=== PATIENT | male | born 1950 | race Caucasian/White ===

== ENCOUNTER 2017-12-10 07:05 | Inpatient (IN) ==
[2017-12-06 16:05] LABS: Appearance,Urine HAZY; Bilirubin,Urine NEG (NEG); Color,Urine YELLOW; Glucose,Urine (UA) NEGATIVE (NEG); Leukocyte Esterase,Urine NEG /uL (NEG); Nitrate,Urine NEG (NEG); Protein,Urine NEG (NEG); Specific Gravity,Urine 1.023 (1.000-1.035); Urine Blood NEG mg/dL (<0.03)
[2017-12-06 18:45] LABS: Basophils # (Auto) 0 K/mcL (0.0-0.3); Basophils % (Auto) 0.5 % (0.0-2.0); Eosinophils # (Auto) 0.6 K/mcL (0.0-0.7); Granulocytes % (Auto) 58.2 % (38.0-78.0); Lymphocytes # (Auto) 2.6 K/mcL (1.5-4.8); Lymphocytes % (Auto) 27.4 % (15.5-49.0); Mean Corpuscular HGB Conc 32.5 g/dL (31.0-36.0); Mean Corpuscular Hemoglobin 29.9 pg (26.0-34.0); Monocytes # (Auto) 0.8 K/mcL (0.1-0.9); Monocytes % (Auto) 7.9 % (1.0-12.0); Platelet Count 261 K/mcL (140-440); RBC 4.75 M/mcL (4.50-5.90); Red Cell Distribution Width 15.1 % (11.5-14.5)
[2017-12-06 18:48] LABS: Blood Urea Nitrogen 13 mg/dl (8-23)
[~2017-12-10 07:05] MED LIST: ACETAMINOPHEN 500 MG TABLET PO SCH; CELECOXIB 200 MG CAPSULE PO SCH; KETOROLAC 30 MG, ROPIVACAINE HCL/PF 49.5 ML, EPINEPHrine 0.5 MG, 0.9 % SODIUM CHLORIDE ... IJ SCH; PREGABALIN 75 MG CAPSULE PO SCH; ceFAZolin 1 GM VIAL IV SCH; oxyCODONE 10 MG TAB.ER.12H PO SCH
[2017-12-10] MEDS ORDERED: IPRATROPIUM/ALBUTEROL 3 ML AMPUL.NEB NEB ONE (11:44)
[2017-12-10] MEDS ORDERED: MIDAZOLAM 2 MG/2 ML VIAL IV ONE (12:30)
[2017-12-10] MEDS ORDERED: ONDANSETRON 4 MG/2 ML VIAL IV ONE (12:30)
[2017-12-10] MEDS ORDERED: DEXAMETHASONE 10 MG/ML VIAL IV ONE (12:30)
[2017-12-10] MEDS ORDERED: BUPIVACAINE PF 0.5% 30 ML VIAL IJ ONE (12:30)
[2017-12-10] MEDS ORDERED: TRANEXAMIC ACID 1,000 MG/10 ML VIAL IV ONE ×2 (12:30→14:25)
[2017-12-10] MEDS ORDERED: LIDOCAINE HCL/PF 100 MG/5 ML SYRINGE IV ONE (12:30)
[2017-12-10] MEDS ORDERED: PROPOFOL 200 MG/20 ML VIAL IV ONE (12:30)
[2017-12-10] MEDS ORDERED: GENTAMICIN SULFATE 800 MG/20 ML VIAL IR ONE (13:21)
[2017-12-10] MEDS ORDERED: diphenhydrAMINE 50 MG/ML VIAL IV PRN (14:07)
[2017-12-10] MEDS ORDERED: NALOXONE HCL 0.4 MG/ML VIAL IV PRN (14:07)
[2017-12-10] MEDS ORDERED: FLUMAZENIL 0.1 MG/ML ML IV PRN (14:07)
[2017-12-10] MEDS ORDERED: BENZOCAINE/MENTHOL 1 LOZENGE PO PRN ×2 (14:07→14:25)
[2017-12-10] MEDS ORDERED: fentaNYL 100 MCG/2 ML VIAL IV PRN (14:07)
[2017-12-10] MEDS ORDERED: ACETAMINOPHEN 1,000 MG/100 ML BOTTLE IV ONE (14:07)
[2017-12-10] MEDS ORDERED: ONDANSETRON 4 MG/2 ML VIAL IV PRN ×2 (14:07→14:25)
[2017-12-10] MEDS ORDERED: MEPERIDINE 25 MG/ML SYRINGE IV PRN (14:07)
[2017-12-10] MEDS ORDERED: IPRATROPIUM/ALBUTEROL 3 ML AMPUL.NEB NEB PRN (14:07)
[2017-12-10] MEDS ORDERED: PROMETHAZINE 25 MG/ML VIAL IV PRN (14:07)
[2017-12-10] MEDS ORDERED: LACTATED RINGERS 250 ML IV PRN (14:07)
[2017-12-10] MEDS ORDERED: LACTATED RINGERS 1,000 ML IV SCH (14:15)
--- NOTE | 2017-12-10 14:24 | Brief Operative Note ---
Date of procedure: 12/10/17 Pre-op diagnosis: right knee avn lateral compartment Post-op diagnosis: same Procedure: right tka with narayan robot Grafts/Implants: Yes Anesthesia: GETA Complications Description: 12/10/17 14:24 none Surgeon: Miguel Scott Brick Grader: David Hernandez Estimated blood loss (cc): 50 Tourniquet Time (Minutes): 75 Specimens Removed/Pathology: none sent Condition: stable Disposition: PACU
[2017-12-10] MEDS ORDERED: ACETAMINOPHEN 325 MG TABLET PO PRN (14:25)
[2017-12-10] MEDS ORDERED: FLEETS ADULT ENEMA PR PRN (14:25)
[2017-12-10] MEDS ORDERED: TEMAZEPAM 15 MG CAPSULE PO PRN (14:25)
[2017-12-10] MEDS ORDERED: HYDROmorphone 2 MG/ML SYRINGE IV PRN (14:25)
[2017-12-10] MEDS ORDERED: POLYETHYLENE GLYCOL 3350 17 GM PACKET PO PRN (14:25)
[2017-12-10] MEDS ORDERED: BISACODYL 10 MG SUPP.RECT PR PRN (14:25)
[2017-12-10] MEDS ORDERED: MAGNESIUM HYDROXIDE 30 ML ORAL.SUSP PO PRN (14:25)
[2017-12-10] MEDS ORDERED: CALCIUM CARBONATE 500 MG TAB.CHEW CHEWED PRN (14:29)
[2017-12-10] MEDS ORDERED: BENZONATATE 100 MG CAPSULE PO PRN (14:29)
[2017-12-10] MEDS ORDERED: CYCLOBENZAPRINE 10 MG TABLET PO PRN (14:29)
[2017-12-10] MEDS ORDERED: CLOTRIMAZOLE CRM 1% 1 DOSE TUBE TOPICAL PRN (14:29)
[2017-12-10] MEDS ORDERED: ALBUTEROL SULFATE 1 PUFF INHALER INH PRN (14:29)
[2017-12-10] MEDS ORDERED: LORazepam 1 MG TABLET PO PRN (14:35)
--- NOTE | 2017-12-10 16:17 | XRay Report ---
CLINICAL INFORMATION: Post-Op Total Knee COMPARISON: None. FINDINGS: Total knee prostheses is anatomically aligned. An IM alisia and interlocking screws transfix an old oblique fracture of the mid tibial diaphysis which is unified in anatomic alignment. Old oblique fracture distal fibula is also unified in anatomic alignment. Gas and soft tissue is seen in the surgical site - as expected. IMPRESSION: Negative Interpreted and Authenticated by: Andre Cortez 12/10/17
[2017-12-10] MEDS: 0.45 % SODIUM CHLORIDE 1,000 ML IV SCH (16:55)
[2017-12-10] MEDS: KETOROLAC 15 MG/ML VIAL IV SCH (17:54)
[2017-12-10] MEDS: ceFAZolin 1 GM VIAL IV SCH (20:01)
[2017-12-10] MEDS: NICOTINE 21 MG PATCH TOPICAL SCH (20:37)
[2017-12-10] MEDS: DOCUSATE SODIUM 100 MG CAPSULE PO SCH (20:37)
[2017-12-10] MEDS: ASPIRIN 325 MG ENTERIC COATED TABLET PO SCH (20:37)
[2017-12-10] MEDS: Budesonide/Formoterol Fumarate [Symbicort] 160-4.5 mcg Inhaler INH SCH (20:38)
[2017-12-10] MEDS: SIMVASTATIN 20 MG TABLET PO SCH (20:38)
[2017-12-10] MEDS: PRAZOSIN 1 MG CAPSULE PO SCH (20:38)
[2017-12-10] MEDS: SENNOSIDES 1 TABLET PO SCH (20:38)
[2017-12-10] MEDS: amLODIPine 5 MG TABLET PO SCH (20:38)
[2017-12-10] MEDS: CALCIUM (OYSTER SHELL) 500 MG TABLET PO SCH (20:38)
[2017-12-10] MEDS: 0.9 % SODIUM CHLORIDE 10 ML SYRINGE IV SCH (20:39)
[2017-12-10] MEDS: OLANZapine 5 MG TABLET PO SCH (20:39)
[2017-12-10] MEDS: BENZTROPINE 1 MG TABLET PO SCH (20:47)
[2017-12-10] MEDS ORDERED: DOCUSATE SODIUM 100 MG CAPSULE PO SCH (21:00)
[2017-12-11] MEDS: 0.45 % SODIUM CHLORIDE 1,000 ML IV SCH ×2 (00:24→13:58)
[2017-12-11] MEDS: KETOROLAC 15 MG/ML VIAL IV SCH ×4 (00:24→17:00)
[2017-12-11] MEDS: ceFAZolin 1 GM VIAL IV SCH (03:36)
[2017-12-11] MEDS: 0.9 % SODIUM CHLORIDE 10 ML SYRINGE IV SCH ×3 (05:57→20:15)
--- NOTE | 2017-12-11 07:43 | Orthopedic Progress Note ---
Subjective Patient information: Note initiated : 12/11/17 at 7:42 am Service Date, if different from initiated Date: [] Patient: Isrrael Carrasco 67 y/o M admitted on 12/10/17 for Right Total Knee Arthroplasty with Srinivas with Poss . Chief Complaint: [Pt is stable this morning on post operative day 1 without any significant concerns or complaints. Patients vital signs have remained stable. Patients dressing is dry and is grossly instact from a neurovascular and motor standpoint. Patients 10 point ROS is otherwise negative. ] Objective Vital signs: Vital Signs Temp Pulse Resp BP Pulse Ox 12/11/17 07:23 98.7 F 12/11/17 06:54 98.7 F 12/11/17 06:47 98.7 F 18 120/73 92 12/11/17 04:00 97.9 F 105 H 18 104/66 94 12/11/17 00:00 98.1 F 112 H 16 98/59 94 12/10/17 20:21 94 12/10/17 20:20 94 12/10/17 18:37 97.5 F 105 H 18 115/78 96 12/10/17 18:25 96 12/10/17 17:30 123/80 96 12/10/17 17:00 92 H 130/85 96 12/10/17 16:50 97.9 F 91 H 17 179/82 95 12/10/17 16:30 91 H 129/83 95 12/10/17 16:15 90 121/48 93 12/10/17 16:00 93 H 109/59 95 12/10/17 15:45 97.9 F 93 H 17 116/78 96 12/10/17 15:30 98.9 F 93 H 16 120/87 96 12/10/17 15:15 98.9 F 94 H 16 141/71 97 12/10/17 15:00 98.9 F 95 H 16 124/58 96 12/10/17 14:55 98.9 F 97 H 16 130/80 99 12/10/17 14:50 98.9 F 92 H 16 128/56 100 12/10/17 14:45 98.9 F 109 H 23 H 125/56 97 Intake and Output 12/10/17 12/11/17 12/11/17 21:59 05:59 13:59 Intake Total 1999 250 / 250 Output Total 1075 / 1075 Balance 1999 -825 / -825 Intake: IV 100 / 100 Oral 250 / 250 IV - Manual Only 1900 / 1900 Output: Void Amount 1075 / 1075 Other: Meal Dinner Percent of Meal Consumed 100% # Voids 1 Weight 266 lb 8 oz Intake & Output: Intake & Output 12/10/17 12/11/17 12/11/17 21:59 05:59 13:59 Intake Total 1999 250 / 250 Output Total 1075 / 1075 Balance 1999825 / -825 Weight 266 lb 8 oz Intake: IV 100 / 100 Oral 250 / 250 IV - Manual Only 1900 / 1900 Output: Void Amount 1075 / 1075 Other: Meal Dinner Percent of Meal Consumed 100% # Voids 1 Incision: Yes healing Incision clean and dry: Yes Dressing: Yes clean, Yes dry Weight bearing status: as tolerated Neurological exam IM: Yes motor sensory intact, Yes neurovascular intact Extremities exam IM: Yes Foot pink and warm, Yes neurovascular intact - Labs CBC & BMP: 12/11/17 04:36 12/06/17 14:49 Labs: Orthopedic Labs 12/06/17 14:50 PT 13.0 INR 1.0 APTT 30 12/11/17 12/06/17 04:36 14:50 Hgb 14.2 Hct 37.8 L 43.7 Assessment and Plan (1) Hx of total knee arthroplasty The patient has been educated regarding dressing care, Physical Therapy recommendations, home exercises, restrictions, and follow up appointments. The patient has had all necessary DME prescribed. The patient has remained stable during their hospital course. The patient was discharge with a stable exam. Leave Dermabond patch intact until followup Status: Acute
--- NOTE | 2017-12-11 07:46 | Discharge Summary ---
Ortho Discharge - TKA - Patient Instructions Diet: Regular Diet Activity: activity as tolerated, weight bearing as tolerated Total Knee Protocol: For Total Knee: Start ROM CASSIE with stationary bike or rocking chair. Work on gaining full extension of knee. Posterior dislocation precautions provided. Hip abductor strengthening and gait training instructions provided. Apply Cryocuff as instructed. Dressing Care: May shower in 2 days Additional Instructions: cpm for home use - Problem Maintenance (1) Hx of total knee arthroplasty Status: Acute - Follow Up Plan Disposition: er [facility] Prognosis: Good Rehab Potential: Good I certify that the patient requires SNF services: No Overall status at discharge: patient is progressing back to baseline - Orders For Discharge Prescriptions: Aspirin [Ecotrin] 325 mg PO BID #60 tab.ec Docusate Sodium [Colace] 100 mg PO BID #60 cap oxyCODONE/APAP [Percocet 5-325 mg] 1 - 2 tab PO Q4HP PRN #75 tab PRN Reason: Pain Level 3-6
[2017-12-11] MEDS: CYANOCOBALAMIN (VITAMIN B-12) 500 MCG TABLET PO SCH (08:55)
[2017-12-11] MEDS: LOSARTAN 50 MG TABLET PO SCH (08:56)
[2017-12-11] MEDS: POTASSIUM CHLORIDE 10 MEQ TABLET PO SCH (08:56)
[2017-12-11] MEDS: MELOXICAM 7.5 MG TABLET PO SCH (08:56)
[2017-12-11] MEDS: DOCUSATE SODIUM 100 MG CAPSULE PO SCH ×2 (08:56→20:15)
[2017-12-11] MEDS: CALCIUM (OYSTER SHELL) 500 MG TABLET PO SCH ×2 (08:56→20:15)
[2017-12-11] MEDS: FUROSEMIDE 20 MG TABLET PO SCH (08:56)
[2017-12-11] MEDS: BENZTROPINE 1 MG TABLET PO SCH ×2 (08:57→20:16)
[2017-12-11] MEDS: ASPIRIN 325 MG ENTERIC COATED TABLET PO SCH ×2 (08:57→20:15)
[2017-12-11] MEDS: TIOTROPIUM BROMIDE 18 MCG INHALANT INH SCH (08:59)
[2017-12-11] MEDS: FLUTICASONE PROPIONATE SPRAY.NAS NS SCH (08:59)
[2017-12-11] MEDS: Budesonide/Formoterol Fumarate [Symbicort] 160-4.5 mcg Inhaler INH SCH ×2 (08:59→20:21)
[2017-12-11] MEDS ORDERED: ASPIRIN 81 MG TAB.CHEW CHEWED SCH (09:00)
[2017-12-11] MEDS ORDERED: PALIPERIDONE PALMITATE 234 MG IM SCH (09:00)
[2017-12-11] MEDS: VITAMIN D3 1,000 UNIT TABLET PO SCH (09:06)
[2017-12-11] MEDS: oxyCODONE/APAP 5/325MG TABLET PO PRN ×2 (11:19→20:14)
[2017-12-11] MEDS: NICOTINE 21 MG PATCH TOPICAL SCH (13:58)
[2017-12-11] MEDS: ALBUTEROL SULFATE 2.5 MG/3 ML NEBULIZER NEB PRN (17:28)
[2017-12-11] MEDS: amLODIPine 5 MG TABLET PO SCH (20:14)
[2017-12-11] MEDS: SENNOSIDES 1 TABLET PO SCH (20:14)
[2017-12-11] MEDS: PRAZOSIN 1 MG CAPSULE PO SCH (20:14)
[2017-12-11] MEDS: SIMVASTATIN 20 MG TABLET PO SCH (20:15)
[2017-12-11] MEDS: OLANZapine 5 MG TABLET PO SCH (20:15)
[2017-12-12] MEDS: KETOROLAC 15 MG/ML VIAL IV SCH ×3 (00:14→12:14)
[2017-12-12] MEDS: 0.9 % SODIUM CHLORIDE 10 ML SYRINGE IV SCH (06:00)
[2017-12-12] MEDS: oxyCODONE/APAP 5/325MG TABLET PO PRN ×2 (06:33→12:14)
[2017-12-12] MEDS: ALBUTEROL SULFATE 2.5 MG/3 ML NEBULIZER NEB PRN ×3 (07:13→14:41)
[2017-12-12] MEDS: TIOTROPIUM BROMIDE 18 MCG INHALANT INH SCH (07:32)
[2017-12-12] MEDS: Budesonide/Formoterol Fumarate [Symbicort] 160-4.5 mcg Inhaler INH SCH (07:32)
[2017-12-12] MEDS: CYANOCOBALAMIN (VITAMIN B-12) 500 MCG TABLET PO SCH (10:40)
[2017-12-12] MEDS: MELOXICAM 7.5 MG TABLET PO SCH (10:40)
[2017-12-12] MEDS: VITAMIN D3 1,000 UNIT TABLET PO SCH (10:40)
[2017-12-12] MEDS: FUROSEMIDE 20 MG TABLET PO SCH (10:40)
[2017-12-12] MEDS: ASPIRIN 325 MG ENTERIC COATED TABLET PO SCH (10:40)
[2017-12-12] MEDS: BENZTROPINE 1 MG TABLET PO SCH (10:40)
[2017-12-12] MEDS: DOCUSATE SODIUM 100 MG CAPSULE PO SCH (10:41)
[2017-12-12] MEDS: LOSARTAN 50 MG TABLET PO SCH (10:41)
[2017-12-12] MEDS: POTASSIUM CHLORIDE 10 MEQ TABLET PO SCH (10:41)
[2017-12-12] MEDS: CALCIUM (OYSTER SHELL) 500 MG TABLET PO SCH (10:41)
[2017-12-12] MEDS: FLUTICASONE PROPIONATE SPRAY.NAS NS SCH (10:42)
[2017-12-12] MEDS: NICOTINE 21 MG PATCH TOPICAL SCH (10:42)
--- NOTE | 2017-12-17 09:31 | Operative Note ---
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 PROCEDURE: Right total knee arthroplasty using the MICHAEL robot. IMPLANTS PLACED: [place] total knee MICHAEL robot implant, size per nurse's note. COMPLICATIONS: None. SURGEON: Miguel Scott MD ALGOLOGY TEACHER: David Hernandez PA-C ANESTHESIA: General LMA anesthesia. COMPLICATIONS: None. TOTAL TOURNIQUET TIME: 75 minutes. DESCRIPTION OF PROCEDURE: The patient was brought to the operating room and put to sleep with general LMA anesthesia. Once asleep, the patient had the right leg sterilely prepped and draped in the usual sterile fashion. This was confirmed with a timeout and Ioban placed over the skin, tourniquet inflated to 250 pounds of pressure and then we made a midline incision. A mid vastus approach was performed and we exposed the joint showing a large defect of the medial femoral condyle on the right knee. This was very deep and a large bony fragment was present. We irrigated, proceeded with total knee arthroplasty, made intramedullary guide alisia and then made a cut using these guide, a distal femoral cut and anterior, posterior chamfer cuts were then made. Once done, we then sized the femur, preserving the PCL, removing osteophytes posteriorly and medially. We then entered the tibia. The tibia was then cut using the MICHAEL robot after registering 30 points on the femur and tibia. We made our tibial cut using the MICHAEL robot preserving the tibial nail. This did not have to be removed. The tibial rotation was set by the robot as well. Once done, we then removed these bony fragments and removed the meniscus, preserving the PCL and removing the old meniscal and a few loose pieces of bone. We irrigated thoroughly and then placed the tibial baseplate with the appropriate external rotation, placed the femoral condyle lateralized according to the robot and then trialed the poly liners. The implants were then trialed and aligned perfectly. In full extension, we prepared the patella. This measured a total thickness of 25 mm. This was cut to 15 mm in total thickness and then we resurfaced this with a 38 mm patellar button. We performed a tracking maneuver to make sure everything aligned perfectly. The knee had full range of motion, full extension by robot. Even though he had developed a slight contracture, we were within 3 degrees of complete normalcy. We irrigated and cemented into place the above-mentioned components removing any excess cement placing the final liner and kept the knee at 45 degrees until all the cement was dry. We closed the mid vastus approach with Stratafix suture #1 x2 sutures. We closed the skin with 2-0 Vicryl and adhesive closure. Tourniquet time 75 minutes. There was no complication. RBH:diandra Job ID: [id number] Doc ID: [id number] Miguel Scott MD
--- NOTE | 2017-12-20 09:18 | Discharge Summary ---
DATE OF ADMISSION: 12/10/2017 DATE OF DISCHARGE: 12/12/2017 ADMITTING DIAGNOSIS: Right knee degenerative osteoarthritis. DISCHARGE DIAGNOSIS: Right knee degenerative osteoarthritis with right robotic total knee arthroplasty. DISCHARGE CONDITION: Stable. CONSULTATIONS: None. PROCEDURE PERFORMED: Right total knee arthroplasty was completed on the date of admission. The procedure went without complications and there was minimal blood loss. Following the procedure the patient was taken to recovery room in stable condition. When deemed stable, was taken to the hospital floor for further observation and recovery. HISTORY OF PRESENT ILLNESS: This pleasant patient has exhausted conservative care measures in the office that has included trials with anti-inflammatories, pain medications, injections and physical therapy. The patient has discussed non-operative and operative options with Dr. Scott at length. Due to the exhausting conservative measures the patient desired to proceed forth with operative care. HOSPITAL COURSE: The patient remained stable throughout the hospital course and exhibited normal neurovascular examinations throughout the stay. The patient worked with physical therapy per standard protocols. The patient had no incidents during the hospital course. The patient also had a stable physical exam upon discharge. DISCHARGE PHYSICAL EXAMINATION: VITAL SIGNS: Stable as above. GENERAL: Patient is awake, alert and oriented x3. HEENT: Head was normocephalic. NECK: Supple, no adenopathy or thyromegaly. CHEST: CTA, no wheezing, rhonchi or rales. HEART: NSR, no gallops, rubs or murmurs. MUSCULOSKELETAL: Lower extremities revealed grossly intact motor exam. NEUROLOGIC: Deep tendon response and light touch, motor, neurosensory exam was stable. SKIN: The incision was intact and the dressing had been changed to the Acticoat dressing. There were no abnormal skin markings, lesions, erythema, rashes or other skin breakdown. DISCHARGE INSTRUCTIONS/MEDICATIONS: The patient received our standard written discharge instruction sheet. These instructions included information regarding weightbearing status, activity level, diet, wound care, physical therapy instructions, bathing restrictions, shower recommendations, follow-up guidelines, driving restrictions and monitoring the wound for signs of infection that could include but not necessarily to fevers above 101.5, sweats, chills, redness, increased pain or drainage. Should any of these occur the patient was educated to contact our office at once. MEDICATIONS: The patient was restarted on normal primary care medications. Patient was also prescribed Tyler 10/325 mg with instructions for 1 to 2 tabs by mouth every 4 to 6 hours as needed for pain, quantity 75 with 2 refills. The patient will be placed on 325 mg aspirin, 1 a day for 30 days post surgery. [facility] will monitor the patient's PT/INR. FOLLOWUP: Patient will follow up at [facility] 2 weeks from surgery for a postop wound check and staple removal. They will be able to certain follow up sooner with any problems or concerns. BAP:reyes Job ID: [id number] Doc ID: [id number] David Hernandez PA-C
== END 2017-12-12 14:55 | DRG 470 ==
LOC: MEDSUR 07:05
PROVIDERS: ADMIT Orthopaedic Surgery; ATTEND Orthopaedic Surgery

== ENCOUNTER 2022-02-01 15:30 | Inpatient (IN) ==
--- NOTE | 2022-02-01 15:51 | Emergency Department Note ---
Lower Extremity Injury HPI <Daniel Barragan PA-C - Last Filed: 02/01/22 18:51> General Chief Complaint: Extremity Injury, Lower Stated Complaint: left hip pain/weakness Time Seen by Provider: 02/01/22 15:39 Source: EMS Mode of arrival: EMS History of Present Illness HPI Narrative: Narrative: 71-year-old male who resides in an assisted living facility in [place] presents the ER to be evaluated for left hip pain. He had hip replacement performed by Dr. Payan on the first. He had a fall on the or and it was found to be a nondisplaced fracture below the post that was nonoperable. He has had difficulty with ambulating and increasing pain since then and he had a repeat fall yesterday. He is now unable to bear weight and his pain is significant. Caregivers report urinary frequency but patient denies. He has a history of COPD and is on 2 L via nasal cannula at baseline, heart failure. He denies increasing shortness of breath, fever, chills, sputum, chest pain, chest pressure, abdominal pain or any other complaints other than hip pain at this time. The staff from the facility state his chest sounds more "rattly" than normal. Related Data Home Medications Medication Instructions Recorded Confirmed albuterol sulfate 90 mcg/actuation 2 puff INH Q4HP PRN 12/06/17 02/01/22 aerosol inhaler (Ventolin HFA) benztropine 1 mg tablet 2 mg PO BID 12/06/17 02/01/22 budesonide-formoterol HFA 160 2 puff INH BID 12/06/17 02/01/22 mcg-4.5 mcg/actuation aerosol inhaler (Symbicort) calcium carbonate 200 mg calcium 1,000 mg CHEWED Q4HP PRN 12/06/17 02/01/22 (500 mg) chewable tablet calcium carbonate 600 mg calcium 600 mg PO BID 12/06/17 02/01/22 (1,500 mg) tablet cholecalciferol (vitamin D3) 25 2,000 unit PO DAILY 12/06/17 02/01/22 mcg (1,000 unit) tablet (Vitamin D3) clotrimazole 1 % topical cream 1 dose TOPICAL BIDP PRN 12/06/17 02/01/22 cyclobenzaprine 10 mg tablet 10 mg PO TIDP PRN 12/06/17 02/01/22 fluticasone propionate 50 1 spray NS DAILY 12/06/17 02/01/22 mcg/actuation nasal spray,suspension furosemide 20 mg tablet 40 mg PO DAILY 12/06/17 02/01/22 losartan 50 mg tablet (Cozaar) 100 mg PO DAILY 12/06/17 02/01/22 olanzapine 5 mg tablet 7.5 mg PO HS 12/06/17 02/01/22 paliperidone palmitate 234 mg/1.5 234 mg IM QMONTH 12/06/17 02/01/22 mL intramuscular syringe (Invega Sustenna) potassium chloride 10 mEq 10 meq PO BIDCC 12/06/17 02/01/22 tablet,extended release prazosin 2 mg capsule 2 mg PO BID 12/06/17 02/01/22 simvastatin 20 mg tablet 20 mg PO HS 12/06/17 02/01/22 tiotropium bromide 18 mcg capsule 18 mcg INH DAILY 12/06/17 02/01/22 with inhalation device (Spiriva with HandiHaler) acetaminophen 325 mg tablet 650 mg PO Q6H PRN 01/10/22 02/01/22 amantadine HCl 100 mg capsule 100 mg PO BID 01/10/22 02/01/22 carvedilol 6.25 mg tablet 6.25 mg PO BIDCC 01/10/22 02/01/22 diclofenac sodium 1 % topical gel 2 g TOPICAL TID 01/10/22 02/01/22 ipratropium 0.5 mg-albuterol 3 mg 3 ml INHALATION Q4H PRN 01/10/22 02/01/22 (2.5 mg base)/3 mL nebulization soln lorazepam 1 mg tablet 1 mg PO BIDP PRN 01/10/22 02/01/22 magnesium citrate 300 ml PO DAILYP PRN 01/10/22 02/01/22 polyethylene glycol 3350 17 gram 17 g PO BID 01/10/22 02/01/22 oral powder packet (Miralax) sennosides 8.6 mg tablet (Senna 8.6 mg PO BID 01/10/22 02/01/22 Lax) Previous Rx's Medication Instructions Recorded aspirin 81 mg tablet,delayed 81 mg PO BID #60 tab 01/17/22 release (Aspirin Low Dose) hydrocodone 10 mg-acetaminophen 1 - 2 tab PO Q4H PRN #60 tab 01/17/22 325 mg tablet Allergies Allergy/AdvReac Type Severity Reaction Status Date / Time Beta-Blockers Allergy Unknown Unknown Verified 01/10/22 13:30 (Beta-Adrenergic Bloc codeine AdvReac Mild Vomiting Verified 01/10/22 13:30 tramadol AdvReac Mild Confusion Verified 01/10/22 13:30 Review of Systems <Daniel Barragan PA-C - Last Filed: 02/01/22 18:51> ROS ROS Narrative: Narrative: All systems ED: reviewed and negative except as stated. PFSH <Daniel Barragan PA-C - Last Filed: 02/01/22 18:51> Narrative Patient History Narrative: Narrative: Medical/Surgical/Family History All Active Problems Hx of total knee arthroplasty (Acute) Closed hip fracture (Acute) Social History Smoking Status: Current some day smoker Exam <Daniel Barragan PA-C - Last Filed: 02/01/22 18:51> Narrative Narrative: Narrative: Gen: No acute distress Eyes: PERRL, no conjunctival injection , and symmetrical lids. Sclerae non icteric HENMT: Normocephalic Atraumatic head, external nose and ears. Moist MM. CVS: +S1/S2, No murmurs or gallops. Radial pulses 2+ and equal bilat. No swelling RESP: Bilateral lateral wheezing auscultated worse on left than right, slight rhonchi bilaterally GI: Obese abdomen, nontender/Nondistended (NTND), No focal tenderness no suprapubic tenderness MSK: Left leg is possibly slightly externally rotated, DP and PT are 2+, cap refill less than 2, pain on the left lateral aspect of the left hip. Skin: Warm, Dry . No rashes or lesions . Cap refill less than 2. Psych: Awake, Alert, & Oriented (AAO) x3. Appropriate mood and affect . Course <Daniel Barragan PA-C - Last Filed: 02/01/22 18:51> Vital Signs Vital signs: Vital Signs Temperature 98.1 F 02/01/22 15:38 Pulse Rate 109 H 03/16/22 15:38 Respiratory Rate 20 02/01/22 15:38 Blood Pressure 146/99 02/01/22 15:38 Pulse Oximetry (%) 99 02/01/22 15:38 Temperature 99.0 F 02/02/22 03:11 Pulse Rate 106 H 02/02/22 03:11 Respiratory Rate 22 02/02/22 03:11 Blood Pressure 118/78 02/02/22 03:11 Pulse Oximetry (%) 93 02/02/22 03:11 [facility] <Daniel Barragan PA-C - Last Filed: 02/01/22 18:51> [facility] Narrative Medical decision making narrative: Narrative: Patient had hip replacement on the first, fall with a fracture that was nondisplaced and nonoperable on approximately the and had another fall yesterday. He has had increasing pain and cannot bear weight. PMS the distal extremity are normal. Patient also has wheezing and rhonchi. He is not complaining of difficulty urinating but the staff caring for him reported urinary frequency and hesitation. He will be evaluated with a cbc, cmp,UA, chest x-ray, bladder scan and hip x-ray. Hip x-ray: Oblique displaced fracture of the left hip, no fracture of the prost hesis Chest x-ray: Cardiomegaly and COPD, no acute exacerbation or process Bladder scan: Post void residual was around 130 mL while lying in bed CBC: Elevated white count of 14 with left shift, anemia. CMP: Unremarkable UA: No evidence of infection Patient could not tolerate imaging and was given 20 mg of ketamine in 100 mL of IV fluid which was running slowly which is controlled his pain. Dr. Howe will be called regarding the fracture. Dr. Howe: Requested to call Dr. Payan who did the prosthesis on the first Dr. Payan: Agreed this patient would need surgery and the patient should be admitted to the hospitalist. Surgery will likely be on Sunday as he needs special equipment. Patient is to have Beasley's traction as needed, can eat until he decides the surgery date and needs to be on bedrest with nonweightbearing. Hospitalist: Dr. Craft graciously agreed to admit the patient and request that he be sent up to the floor for evaluation. Lab Data Result diagrams: 02/02/22 05:16 02/02/22 05:16 Labs: Lab Results 02/01/22 02/01/22 02/01/22 Range/Units 16:10 16:11 16:11 WBC 14.1 H (4.5-11.0) K/mcL RBC 3.97 L (4.63-6.08) M/mcL Hgb 11.6 L (13.7-17.5) g/dL Hct 36.8 L (40.1-51.0) % MCV 92.7 (80.0-100.0) fL MCH 29.2 (26.0-34.0) pg MCHC 31.5 (31.0-36.0) g/dL RDW 14.4 (11.5-14.5) % Plt Count 356 (140-440) K/mcL MPV 9.9 (7.4-10.4) fL Neut % (Auto) 80.6 H (38.0-78.0) % Lymph % (Auto) 9.3 L (15.5-49.0) % [place] % (Auto) 8.5 (1.0-12.0) % Eos % (Auto) 1.1 (0.0-7.0) % Baso % (Auto) 0.5 (0.0-2.0) % Lymph # (Auto) 1.31 L (1.50-4.80) K/mcL [place] # (Auto) 1.19 H (0.10-0.90) K/mcL Eos # (Auto) 0.15 (0.00-0.70) K/mcL Baso # (Auto) 0.07 (0.00-0.30) K/mcL Absolute Neutrophils 11.34 H (1.80-8.00) K/mcL PT (11.9-14.5) sec INR (0.9-1.1) Sodium 137 (133-145) mmol/L Potassium 3.8 (3.3-5.1) mmol/L Chloride 99 (96-108) mmol/L Carbon Dioxide 26 (22-30) mmol/L Anion Gap 12.0 (8.0-16.0) BUN 13 (8-23) mg/dL Creatinine 1.2 (0.7-1.2) mg/dL GFR Calculation 60 Glucose 115 H (70-105) mg/dL Calcium 10.4 (8.6-10.4) mg/dL Total Bilirubin 0.4 (0.1-1.0) mg/dL AST 16 (<40) U/L ALT 22 (<40) U/L Alkaline Phosphatase 120 H (39-117) U/L Total Protein 6.7 (5.9-8.4) gm/dL Albumin 3.5 (3.2-5.2) gm/dL Globulin 3.2 (2.2-3.7) gm/dL Albumin/Globulin Ratio 1.1 (1.0-2.3) Urine Color Yellow Urine Appearance Hazy A (Clear) Urine pH 6.0 (5.0-9.0) Ur Specific [place] 1.013 (1.000-1.035) Urine Protein Negative (Negative) mg/dL Urine Glucose (UA) Negative (Negative) mg/dL Urine Ketones Negative (Negative) mg/dL Urine Occult Blood Negative (Negative) mg/dL Urine Nitrate Negative (Negative) Urine Bilirubin Negative (Negative) mg/dL Urine Urobilinogen Negative mg/dL Ur Leukocyte Esterase Negative (Negative) /uL Urine RBC 1 (0-3) /hpf Urine WBC 5 H (0-4) /hpf Ur Squamous Epith Cells 0 (0-4) /hpf Urine Bacteria None (0) /hpf Urine Mucus Mod A (None) /hpf Ur Culture Indicated? No 02/01/22 Range/Units 16:11 WBC (4.5-11.0) K/mcL RBC (4.63-6.08) M/mcL Hgb (13.7-17.5) g/dL Hct (40.1-51.0) % MCV (80.0-100.0) fL MCH (26.0-34.0) pg MCHC (31.0-36.0) g/dL RDW (11.5-14.5) % Plt Count (140-440) K/mcL MPV (7.4-10.4) fL Neut % (Auto) (38.0-78.0) % Lymph % (Auto) (15.5-49.0) % [place] % (Auto) (1.0-12.0) % Eos % (Auto) (0.0-7.0) % Baso % (Auto) (0.0-2.0) % Lymph # (Auto) (1.50-4.80) K/mcL [place] # (Auto) (0.10-0.90) K/mcL Eos # (Auto) (0.00-0.70) K/mcL Baso # (Auto) (0.00-0.30) K/mcL Absolute Neutrophils (1.80-8.00) K/mcL PT 14.0 (11.9-14.5) sec INR 1.0 (0.9-1.1) Sodium (133-145) mmol/L Potassium (3.3-5.1) mmol/L Chloride (96-108) mmol/L Carbon Dioxide (22-30) mmol/L Anion Gap (8.0-16.0) BUN (8-23) mg/dL Creatinine (0.7-1.2) mg/dL GFR Calculation Glucose (70-105) mg/dL Calcium (8.6-10.4) mg/dL Total Bilirubin (0.1-1.0) mg/dL AST (<40) U/L ALT (<40) U/L Alkaline Phosphatase (39-117) U/L Total Protein (5.9-8.4) gm/dL Albumin (3.2-5.2) gm/dL Globulin (2.2-3.7) gm/dL Albumin/Globulin Ratio (1.0-2.3) Urine Color Urine Appearance (Clear) Urine pH (5.0-9.0) Ur Specific [place] (1.000-1.035) Urine Protein (Negative) mg/dL Urine Glucose (UA) (Negative) mg/dL Urine Ketones (Negative) mg/dL Urine Occult Blood (Negative) mg/dL Urine Nitrate (Negative) Urine Bilirubin (Negative) mg/dL Urine Urobilinogen mg/dL Ur Leukocyte Esterase (Negative) /uL Urine RBC (0-3) /hpf Urine WBC (0-4) /hpf Ur Squamous Epith Cells (0-4) /hpf Urine Bacteria (0) /hpf Urine Mucus (None) /hpf Ur Culture Indicated? ED POC Tests ED POC Tests: EDUARD - SARS Antigen Negative Discharge Plan Patient/Caregiver Discharge Instructions Pt seen by [employer]TER/PA only: Yes Clinical Impression: Closed hip fracture Patient Disposition: Xfer As Inpt ([facility]) Discharge Date/Time: 02/01/22 21:24 Discharge Comment: To room 129 @ [id number]
[2022-02-01 16:44] LABS: Basophils # (Auto) 0.07 K/mcL (0.00-0.30); Basophils % (Auto) 0.5 % (0.0-2.0); Eosinophils # (Auto) 0.15 K/mcL (0.00-0.70); Eosinophils % (Auto) 1.1 % (0.0-7.0); Hematocrit 36.8 % (40.1-51.0); Hemoglobin 11.6 g/dL (13.7-17.5); Lymphocytes # (Auto) 1.31 K/mcL (1.50-4.80); Lymphocytes % (Auto) 9.3 % (15.5-49.0); Mean Cell Volume 92.7 fL (80.0-100.0); Mean Corpuscular HGB Conc 31.5 g/dL (31.0-36.0); Mean Platelet Volume 9.9 fL (7.4-10.4); Monocytes # (Auto) 1.19 K/mcL (0.10-0.90); Monocytes % (Auto) 8.5 % (1.0-12.0); Neutrophils % (Auto) 80.6 % (38.0-78.0); Platelet Count 356 K/mcL (140-440); RBC 3.97 M/mcL (4.63-6.08); Red Cell Distribution Width 14.4 % (11.5-14.5); WBC 14.1 K/mcL (4.5-11.0)
[2022-02-01] MEDS ORDERED: KETAMINE 10 MG/ML ML IV ONE (16:58)
[2022-02-01 17:02] LABS: ALT/SGPT 22 U/L (<40); AST/SGOT 16 U/L (<40); Albumin 3.5 gm/dL (3.2-5.2); Albumin/Globulin Ratio 1.1 (1.0-2.3); Alkaline Phosphatase 120 U/L (39-117); Bilirubin,Total 0.4 mg/dL (0.1-1.0); Blood Urea Nitrogen 13 mg/dL (8-23); Calcium 10.4 mg/dL (8.6-10.4); Carbon Dioxide 26 mmol/L (22-30); Chloride 99 mmol/L (96-108); Globulin 3.2 gm/dL (2.2-3.7); Glomerular Filtration Rate 60; Glucose 115 mg/dL (70-105)
[2022-02-01 17:24] LABS: Appearance,Urine HAZY (Clear); Bilirubin,Urine Negative (Negative); Color,Urine YELLOW; Culture Indicated,Urine No; Glucose,Urine (UA) Negative (Negative); Ketones,Urine Negative (Negative); Leukocyte Esterase,Urine Negative /uL (Negative); Mucus,Urine MOD /hpf; Nitrate,Urine Negative (Negative); Protein,Urine Negative (Negative); Specific Gravity,Urine 1.013 (1.000-1.035); Urine Blood Negative (Negative); Urine RBC 1 /hpf (0-3); Urine Squamous Epithelial Cell 0 /hpf (0-4); Urine WBC 5 /hpf (0-4); Urobilinogen,Urine Negative
--- NOTE | 2022-02-01 17:57 | XRay Report ---
CLINICAL INFORMATION: Trauma COMPARISON: 01/31/2022 FINDINGS: Left total hip prostheses remains anatomically aligned without loosening or infection. The oblique fracture extending through the medial proximal femoral diaphysis through the base of lesser trochanter is now displaced 1 cm medially. On yesterday's film, this fracture was nondisplaced. Right hip and SI joints are normal. Soft tissue swelling over the surgical site. IMPRESSION: Oblique fracture of the proximal femoral diaphysis is now displaced 1 cm Interpreted and Authenticated by: Andre Cortez 02/01/22
--- NOTE | 2022-02-01 17:58 | XRay Report ---
CLINICAL INFORMATION: Wheezing and rhonchi COMPARISON: 01/10/2022. TECHNIQUE: Portable FINDINGS: The heart is borderline enlarged. Mild mediastinal widening noted. Pulmonary vessels are unremarkable. COPD changes are stable. No effusions.. IMPRESSION: Cardiomegaly and COPD-stable. No acute disease Interpreted and Authenticated by: Andre Cortez 02/01/22
--- NOTE | 2022-02-01 19:54 | Internal Med History&Physical ---
HPI History of Present Illness Patient information: Note initiated : 02/01/22 at 7:46 pm Service Date, if different from initiated Date: [] Patient: Isrrael Carrasco a 71 y/o M admitted on for left hip pain/weakness. Chief Complaint: [] History of present illness: Mr. Carrasco is a 71 year old M Patient recently left hip replacement on January 17 and on had a fall resulting in a nondisplaced fracture below the stem. He has had difficulty ambulating increasing pain since that time and had a repeat fall yesterday. He is now unable to bear weight as much more pain. Past medical history cleared COPD on 2 L nasal cannula. Work-up in the ED revealed an oblique displaced fracture of left hip. Dr. Payan was contacted. Patient is a smoker about half pack per day but wants to quit now. Sense of medication for parkinsonism or drug-induced extrapyramidal symptoms but not sure why. Reviewed imaging and ekg Review of Systems: Pertinent positives as above. Denies headache/fever/chills/nausea/vomiting/chest or abdominal pain/cough/dyspnea/ diarrhea. Remaining 10 point review of system reviewed negative. PFSH PFSH All Active Problems (Updated 02/01/22 @ 18:51 by Daniel Barragan PA-C) Hx of total knee arthroplasty (Acute) Closed hip fracture (Acute) MEDS/ALLERGIES Home Medications and Allergies Home Medications Medication Instructions Recorded Confirmed Type albuterol sulfate 90 mcg/actuation 2 puff INH Q4HP PRN 12/06/17 02/01/22 History aerosol inhaler (Ventolin HFA) benztropine 1 mg tablet 2 mg PO BID 12/06/17 02/01/22 History budesonide-formoterol HFA 160 2 puff INH BID 12/06/17 02/01/22 History mcg-4.5 mcg/actuation aerosol inhaler (Symbicort) calcium carbonate 200 mg calcium 1,000 mg CHEWED Q4HP PRN 12/06/17 02/01/22 History (500 mg) chewable tablet calcium carbonate 600 mg calcium 600 mg PO BID 12/06/17 02/01/22 History (1,500 mg) tablet cholecalciferol (vitamin D3) 25 2,000 unit PO DAILY 12/06/17 02/01/22 History mcg (1,000 unit) tablet (Vitamin D3) clotrimazole 1 % topical cream 1 dose TOPICAL BIDP PRN 12/06/17 02/01/22 History cyclobenzaprine 10 mg tablet 10 mg PO TIDP PRN 12/06/17 02/01/22 History fluticasone propionate 50 1 spray NS DAILY 12/06/17 02/01/22 History mcg/actuation nasal spray,suspension furosemide 20 mg tablet 40 mg PO DAILY 12/06/17 02/01/22 History losartan 50 mg tablet (Cozaar) 100 mg PO DAILY 12/06/17 02/01/22 History olanzapine 5 mg tablet 7.5 mg PO HS 12/06/17 02/01/22 History paliperidone palmitate 234 mg/1.5 234 mg IM QMONTH 12/06/17 02/01/22 History mL intramuscular syringe (Invega Sustenna) potassium chloride 10 mEq 10 meq PO BIDCC 12/06/17 02/01/22 History tablet,extended release prazosin 2 mg capsule 2 mg PO BID 12/06/17 02/01/22 History simvastatin 20 mg tablet 20 mg PO HS 12/06/17 02/01/22 History tiotropium bromide 18 mcg capsule 18 mcg INH DAILY 12/06/17 02/01/22 History with inhalation device (Spiriva with HandiHaler) acetaminophen 325 mg tablet 650 mg PO Q6H PRN 01/10/22 02/01/22 History amantadine HCl 100 mg capsule 100 mg PO BID 01/10/22 02/01/22 History carvedilol 6.25 mg tablet 6.25 mg PO BIDCC 01/10/22 02/01/22 History diclofenac sodium 1 % topical gel 2 g TOPICAL TID 01/10/22 02/01/22 History ipratropium 0.5 mg-albuterol 3 mg 3 ml INHALATION Q4H PRN 01/10/22 02/01/22 History (2.5 mg base)/3 mL nebulization soln lorazepam 1 mg tablet 1 mg PO BIDP PRN 01/10/22 02/01/22 History magnesium citrate 300 ml PO DAILYP PRN 01/10/22 02/01/22 History polyethylene glycol 3350 17 gram 17 g PO BID 01/10/22 02/01/22 History oral powder packet (Miralax) sennosides 8.6 mg tablet (Senna 8.6 mg PO BID 01/10/22 02/01/22 History Lax) aspirin 81 mg tablet,delayed 81 mg PO BID #60 tab 01/17/22 02/01/22 Rx release (Aspirin Low Dose) hydrocodone 10 mg-acetaminophen 1 - 2 tab PO Q4H PRN #60 tab 01/17/22 02/01/22 Rx 325 mg tablet Allergies Allergy/AdvReac Type Severity Reaction Status Date / Time Beta-Blockers Allergy Unknown Unknown Verified 01/10/22 13:30 (Beta-Adrenergic Bloc codeine AdvReac Mild Vomiting Verified 01/10/22 13:30 tramadol AdvReac Mild Confusion Verified 01/10/22 13:30 EXAM Constitutional Vitals: Temp Pulse Resp BP Pulse Ox 98.1 F 104 H 20 130/80 97 02/01/22 15:38 02/01/22 19:04 02/01/22 15:38 02/01/22 19:02 02/01/22 19:04 Exam: General: Alert, Awake, No acute Distress, obese Eyes/N/T: EOMI, PERRL, Head/Neck: neck supple, normocephalic atraumatic CV: RRR, No murmurs, normal s1/s2 Pulm: mild b/l wheezing, no rhonchi Abd: soft, nontender, +BS x4 Ext: no clubbing/cyanosis, 1+ b/l LE edema Neuro: Alert, no focal deficits, moves all extremities, CN 2-12 grossly intact, sensations intact b/l upper/lower Skin: warm/dry DATA Data Completed and Pending Labs: Labs from last 24 hours 02/01/22 02/01/22 02/01/22 16:11 16:11 16:11 WBC 14.1 H RBC 3.97 L Hgb 11.6 L Hct 36.8 L MCV 92.7 MCH 29.2 MCHC 31.5 RDW 14.4 Plt Count 356 MPV 9.9 Neut % (Auto) 80.6 H Lymph % (Auto) 9.3 L [place] % (Auto) 8.5 Eos % (Auto) 1.1 Baso % (Auto) 0.5 Lymph # (Auto) 1.31 L [place] # (Auto) 1.19 H Eos # (Auto) 0.15 Baso # (Auto) 0.07 Absolute Neutrophils 11.34 H PT 14.0 INR 1.0 Sodium 137 Potassium 3.8 Chloride 99 Carbon Dioxide 26 Anion Gap 12.0 BUN 13 Creatinine 1.2 GFR Calculation 60 Glucose 115 H Calcium 10.4 Total Bilirubin 0.4 AST 16 ALT 22 Alkaline Phosphatase 120 H Total Protein 6.7 Albumin 3.5 Globulin 3.2 Albumin/Globulin Ratio 1.1 Urine Color Urine Appearance Urine pH Ur Specific [place] Urine Protein Urine Glucose (UA) Urine Ketones Urine Occult Blood Urine Nitrate Urine Bilirubin Urine Urobilinogen Ur Leukocyte Esterase Urine RBC Urine WBC Ur Squamous Epith Cells Urine Bacteria Urine Mucus Ur Culture Indicated? 02/01/22 16:10 WBC RBC Hgb Hct MCV MCH MCHC RDW Plt Count MPV Neut % (Auto) Lymph % (Auto) [place] % (Auto) Eos % (Auto) Baso % (Auto) Lymph # (Auto) [place] # (Auto) Eos # (Auto) Baso # (Auto) Absolute Neutrophils PT INR Sodium Potassium Chloride Carbon Dioxide Anion Gap BUN Creatinine GFR Calculation Glucose Calcium Total Bilirubin AST ALT Alkaline Phosphatase Total Protein Albumin Globulin Albumin/Globulin Ratio Urine Color Yellow Urine Appearance Hazy A Urine pH 6.0 Ur Specific [place] 1.013 Urine Protein Negative Urine Glucose (UA) Negative Urine Ketones Negative Urine Occult Blood Negative Urine Nitrate Negative Urine Bilirubin Negative Urine Urobilinogen Negative Ur Leukocyte Esterase Negative Urine RBC 1 Urine WBC 5 H Ur Squamous Epith Cells 0 Urine Bacteria None Urine Mucus Mod A Ur Culture Indicated? No Imaging and Cardiology Chest x-ray: Status: image reviewed by me A/P Narrative A/P Narrative: A: *Left hip periprosthetic fracture: *Recent Left VICK (01/17): *Generalized weakness/deconditioning/falls: *COPD w/chronic hypoxia (2L O2@home) *CAD w/stent: *HTN/HLD: *Depression/anxiety: *Obesity: BMI 37 *ADRIANE w/cpap: *Schizoaffective disorder: *Tobacco abuse: P: -jaja for ortho -Pain control -PT/OT -Continue home oxygen and as needed nebs at home inhalers -nocturnal cpap -Aspirin held for surgery continue statin and beta-rogelio and ARB -Continue home Lasix, monitor fluid balance -Continue psych medications -CM for placement -Smoking cessation counseling -ppx: SCD and postop per Ortho Time Spent With Patient Time: Total time spent is greater than 50% in coordination of care (as documented) at patient's floor/unit and/or counseling patient: Total time spent with greater than 50% in coordination of care (as documented) at patient's floor/unit and/or counseling patient:: 35 - 50 minutes
[2022-02-01] MEDS ORDERED: ONDANSETRON 4 MG/2 ML VIAL IV PRN (21:27)
[2022-02-01] MEDS ORDERED: morphine 4 MG/ML VIAL IV PRN (21:27)
[2022-02-01] MEDS ORDERED: MAGNESIUM CITRATE 300 ML ORAL.SOL PO PRN (21:27)
[2022-02-01] MEDS ORDERED: POTASSIUM CHLORIDE 40 MEQ in DEXTROSE 5% IN WATER 500 ML IV PRN (21:27)
[2022-02-01] MEDS ORDERED: MAGNESIUM SULFATE 2 GM/50 ML BAG IV PRN (21:27)
[2022-02-01] MEDS ORDERED: POTASSIUM CHLORIDE 20 MEQ TABLET PO PRN (21:27)
[2022-02-01] MEDS ORDERED: IPRATROPIUM/ALBUTEROL 3 ML AMPUL.NEB NEB PRN (21:27)
[2022-02-01] MEDS ORDERED: CYCLOBENZAPRINE 10 MG TABLET PO PRN (22:02)
[2022-02-01] MEDS ORDERED: CALCIUM CARBONATE 500 MG TAB.CHEW CHEWED PRN (22:04)
[2022-02-01] MEDS: 0.9 % SODIUM CHLORIDE 10 ML SYRINGE IV SCH (22:05)
[2022-02-01] MEDS ORDERED: morphine 2 MG/ML VIAL ONE (22:06)
[2022-02-01] MEDS: SENNOSIDES 1 TABLET PO SCH (23:01)
[2022-02-01] MEDS: DOCUSATE SODIUM 100 MG CAPSULE PO SCH (23:01)
[2022-02-01] MEDS: BENZTROPINE 1 MG TABLET PO SCH (23:02)
[2022-02-01] MEDS: SIMVASTATIN 20 MG TABLET PO SCH (23:02)
[2022-02-01] MEDS: OLANZapine 5 MG TABLET PO SCH (23:02)
[2022-02-01] MEDS: HYDROcodone/APAP 10/325MG TABLET PO PRN (23:04)
[2022-02-01] MEDS: POLYETHYLENE GLYCOL 3350 17 GM PACKET PO SCH (23:06)
[2022-02-01] MEDS: AMANTADINE HCL 100 MG CAPSULE PO SCH (23:12)
[2022-02-02] MEDS: HYDROcodone/APAP 10/325MG TABLET PO PRN ×4 (00:17→23:42)
[2022-02-02] MEDS: 0.9 % SODIUM CHLORIDE 10 ML SYRINGE IV SCH ×3 (05:47→20:32)
--- NOTE | 2022-02-02 06:46 | Orthopedic History & Physical ---
HPI History of Present Illness Patient information: Note initiated : 02/02/22 at 6:44 am Service Date, if different from initiated Date: [] Patient: Isrrael Carrasco 71 y/o M admitted on 02/01/22 for left hip pain/weakness. Chief Complaint: [] History of present illness: Patient is a 71-year-old male with hx of COPD and left total hip replacement who resides in an assisted living facility in [place] who presents to the [facility] ER to be evaluated for left hip pain.He had a fall on the or sustaining a nondisplaced fracture which was elected to be managed conservatively. He has had difficulty with ambulating and increasing pain since then, and he had a repeat fall yesterday. He was then unable to bear weight with increased pain. Workup at the ED revealed further displacement of fracture and Dr. Payan was consulted for treatment. Review of Systems All systems: reviewed and no additional remarkable complaints except as stated PFSH PFSH All Active Problems Hx of total knee arthroplasty (Acute) Closed hip fracture (Acute) MEDS/ALLERGIES Home Medications and Allergies Home Medications Medication Instructions Recorded Confirmed Type albuterol sulfate 90 mcg/actuation 2 puff INH Q4HP PRN 12/06/17 02/01/22 History aerosol inhaler (Ventolin HFA) benztropine 1 mg tablet 2 mg PO BID 12/06/17 02/01/22 History budesonide-formoterol HFA 160 2 puff INH BID 12/06/17 02/01/22 History mcg-4.5 mcg/actuation aerosol inhaler (Symbicort) calcium carbonate 200 mg calcium 1,000 mg CHEWED Q4HP PRN 12/06/17 02/01/22 History (500 mg) chewable tablet calcium carbonate 600 mg calcium 600 mg PO BID 12/06/17 02/01/22 History (1,500 mg) tablet cholecalciferol (vitamin D3) 25 2,000 unit PO DAILY 12/06/17 02/01/22 History mcg (1,000 unit) tablet (Vitamin D3) clotrimazole 1 % topical cream 1 dose TOPICAL BIDP PRN 12/06/17 02/01/22 History cyclobenzaprine 10 mg tablet 10 mg PO TIDP PRN 12/06/17 02/01/22 History fluticasone propionate 50 1 spray NS DAILY 12/06/17 02/01/22 History mcg/actuation nasal spray,suspension furosemide 20 mg tablet 40 mg PO DAILY 12/06/17 02/01/22 History losartan 50 mg tablet (Cozaar) 100 mg PO DAILY 12/06/17 02/01/22 History olanzapine 5 mg tablet 7.5 mg PO HS 12/06/17 02/01/22 History paliperidone palmitate 234 mg/1.5 234 mg IM QMONTH 12/06/17 02/01/22 History mL intramuscular syringe (Invega Sustenna) potassium chloride 10 mEq 10 meq PO BIDCC 12/06/17 02/01/22 History tablet,extended release prazosin 2 mg capsule 2 mg PO BID 12/06/17 02/01/22 History simvastatin 20 mg tablet 20 mg PO HS 12/06/17 02/01/22 History tiotropium bromide 18 mcg capsule 18 mcg INH DAILY 12/06/17 02/01/22 History with inhalation device (Spiriva with HandiHaler) acetaminophen 325 mg tablet 650 mg PO Q6H PRN 01/10/22 02/01/22 History amantadine HCl 100 mg capsule 100 mg PO BID 01/10/22 02/01/22 History carvedilol 6.25 mg tablet 6.25 mg PO BIDCC 01/10/22 02/01/22 History diclofenac sodium 1 % topical gel 2 g TOPICAL TID 01/10/22 02/01/22 History ipratropium 0.5 mg-albuterol 3 mg 3 ml INHALATION Q4H PRN 01/10/22 02/01/22 History (2.5 mg base)/3 mL nebulization soln lorazepam 1 mg tablet 1 mg PO BIDP PRN 01/10/22 02/01/22 History magnesium citrate 300 ml PO DAILYP PRN 01/10/22 02/01/22 History polyethylene glycol 3350 17 gram 17 g PO BID 01/10/22 02/01/22 History oral powder packet (Miralax) sennosides 8.6 mg tablet (Senna 8.6 mg PO BID 01/10/22 02/01/22 History Lax) aspirin 81 mg tablet,delayed 81 mg PO BID #60 tab 01/17/22 02/01/22 Rx release (Aspirin Low Dose) hydrocodone 10 mg-acetaminophen 1 - 2 tab PO Q4H PRN #60 tab 01/17/22 02/01/22 Rx 325 mg tablet Allergies Allergy/AdvReac Type Severity Reaction Status Date / Time Beta-Blockers Allergy Unknown Unknown Verified 01/10/22 13:30 (Beta-Adrenergic Bloc codeine AdvReac Mild Vomiting Verified 01/10/22 13:30 tramadol AdvReac Mild Confusion Verified 01/10/22 13:30 Physical Examination Narrative Narrative: Narrative: Results Labs Result Diagrams: 02/01/22 16:11 02/01/22 16:11 Labs: Abnormal lab results 02/01/22 02/01/22 02/01/22 Range/Units 16:10 16:11 16:11 WBC 14.1 H (4.5-11.0) K/mcL RBC 3.97 L (4.63-6.08) M/mcL Hgb 11.6 L (13.7-17.5) g/dL Hct 36.8 L (40.1-51.0) % Neut % (Auto) 80.6 H (38.0-78.0) % Lymph % (Auto) 9.3 L (15.5-49.0) % Lymph # (Auto) 1.31 L (1.50-4.80) K/mcL [place] # (Auto) 1.19 H (0.10-0.90) K/mcL Absolute Neutrophils 11.34 H (1.80-8.00) K/mcL Glucose 115 H (70-105) mg/dL Alkaline Phosphatase 120 H (39-117) U/L Urine Appearance Hazy A (Clear) Urine WBC 5 H (0-4) /hpf Urine Mucus Mod A (None) /hpf H & H 02/01/22 Range/Units 16:11 Hgb 11.6 L (13.7-17.5) g/dL Hct 36.8 L (40.1-51.0) % Coagulation 02/01/22 Range/Units 16:11 INR 1.0 (0.9-1.1) All other labs normal. A/P Narrative A/P Narrative: On exam patient is seated in bed in no acute distress, lungs are equal and clear bilaterally, heart normal rate and rhythm. Head, neck, chest, abdomen and right side pelvis are non tender to palpation both upper extremities are non-tender with full ROM. At the left side pelvis and hip area there is tenderness to palpation and with any ROM. Both lower extremities are warm, well perfused and neuro intact. Plan of Treatment: Options were presented to the patient including non-surgical and surgical options. Nonsurgical consisting of non-weightbearing and further immobilization carries the risk on non-union, injury to nerves and blood vessels and loss of ambulation. Surgical option is for open reduction internal fixation via plate and cable fixation with possible corail hip revision stem placement. At this time patient is interested in surgery. Plan is for open reduction internal fixation via plate and cable fixation with possible corail hip revision stem placement. Surgical risks were explained to the patient including but not limited to: pain, bleeding, infection, need for further surgery, injury to adjacent structures, stroke risk, cardiac complications, pulmonary complications, anesthesia reactions and . patient understands these risks and wishes to proceed with surgery. patient is to be NPO status on midnight for surgery sunday. Time Spent With Patient Time: Total time spent is greater than 50% in coordination of care (as documented) at patient's floor/unit and/or counseling patient:
[2022-02-02 06:58] LABS: Basophils # (Auto) 0.08 K/mcL (0.00-0.30); Basophils % (Auto) 0.8 % (0.0-2.0); Eosinophils # (Auto) 0.37 K/mcL (0.00-0.70); Eosinophils % (Auto) 3.6 % (0.0-7.0); Hematocrit 33.3 % (40.1-51.0); Hemoglobin 10.5 g/dL (13.7-17.5); Lymphocytes % (Auto) 20.3 % (15.5-49.0); Mean Cell Volume 95.1 fL (80.0-100.0); Mean Corpuscular HGB Conc 31.5 g/dL (31.0-36.0); Mean Platelet Volume 11.6 fL (7.4-10.4); Monocytes % (Auto) 10.6 % (1.0-12.0); Neutrophils % (Auto) 64.7 % (38.0-78.0); Platelet Count 412 K/mcL (140-440); Red Cell Distribution Width 14.6 % (11.5-14.5); WBC 10.3 K/mcL (4.5-11.0)
[2022-02-02 07:03] LABS: ALT/SGPT 24 U/L (<40); AST/SGOT 20 U/L (<40); Albumin 2.9 gm/dL (3.2-5.2); Alkaline Phosphatase 102 U/L (39-117); Bilirubin,Direct < 0.2 mg/dL (0-0.3); Bilirubin,Total 0.3 mg/dL (0.1-1.0); Blood Urea Nitrogen 13 mg/dL (8-23); Calcium 10.1 mg/dL (8.6-10.4); Carbon Dioxide 25 mmol/L (22-30); Chloride 101 mmol/L (96-108); Globulin 2.9 gm/dL (2.2-3.7); Glomerular Filtration Rate 85; Glucose 97 mg/dL (70-105); Lactate Dehydrogenase 200 U/L (135-225); Phosphorous 3.2 mg/dL (2.5-4.5); Triglycerides 56 mg/dL (<150); Uric Acid 5.5 mg/dL (2.5-8.0)
--- NOTE | 2022-02-02 07:37 | Internal Med Progress Note ---
SUBJECTIVE Subjective Patient information: Note initiated : 02/02/22 at 7:35 am Service Date, if different from initiated Date: [] Patient: Isrrael Carrasco a 71 y/o M admitted on 02/01/22 for left hip pain/weakness. Chief Complaint: [] Interval history: History of present illness: Mr. Carrasco is a 71 year old M Patient recently left hip replacement on January 17 and on had a fall resulting in a nondisplaced fracture below the stem. He has had difficulty ambulating increasing pain since that time and had a repeat fall yesterday. He is now unable to bear weight as much more pain. Past medical history cleared COPD on 2 L nasal cannula. Work-up in the ED revealed an oblique displaced fracture of left hip. Dr. Payan was contacted. Patient is a smoker about half pack per day but wants to quit now. Sense of medication for parkinsonism or drug-induced extrapyramidal symptoms but not sure why. Reviewed imaging and ekg 02/02 No overnight event or new complaints. Surgery will be till tomorrow because her waiting for surgical equipment. Patient is wheezy a little bit but states she is always wheezy. Debilitated will likely need SNF. Chronic oxygen use. Review of Systems: denies headache/fever/chills/nausea/vomiting/chest or abdominal pain/cough/dyspnea/diarrhea. Otherwise see above. Constitutional Vitals: Vital Signs Temp Pulse Resp BP Pulse Ox 99.0 F 106 H 22 118/78 93 02/02/22 03:11 02/02/22 03:11 02/02/22 03:11 02/02/22 03:11 02/02/22 03:11 Period Temp Pulse Resp BP Sys/[place] Pulse Ox Last 24 Hr 98.1 F-99.0 F 100-115 20-24 118-158/78-127 93-100 Intake and Output 02/01/22 02/02/22 02/02/22 21:59 05:59 13:59 Intake Total 300 Output Total 1 375 Balance -1 -75 Weight 109.406 kg Intake & Output: Intake & Output 02/01/22 02/02/22 02/02/22 21:59 05:59 13:59 Intake Total 300 Output Total 1 375 Balance -1 -75 Weight 109.406 kg Intake: Oral 300 Output: Urine Catheter Amount 375 # of times incontinent of urine 1 Other: Urine Appearance Clear Urine Color Bright Yellow Exam: General: Alert, Awake, No acute Distress, obese Eyes/N/T: EOMI, Head/Neck: neck supple, CV: RRR, No murmurs, Pulm: mild b/l wheezing, no rhonchi Abd: soft, nontender, +BS x4 Ext: no clubbing/cyanosis, 1+ b/l LE edema Neuro: Alert, no focal deficits, moves all extremities, Skin: warm/dry OBJ DATA Labs CBC & Chem 7: 02/02/22 05:16 02/02/22 05:16 Labs: Abnormal Lab Results 02/02/22 02/02/22 02/01/22 05:16 05:16 16:11 WBC RBC 3.50 L Hgb 10.5 L Hct 33.3 L RDW 14.6 H MPV 11.6 H Neut % (Auto) Lymph % (Auto) Lymph # (Auto) [place] # (Auto) 1.10 H Absolute Neutrophils Glucose 115 H Alkaline Phosphatase 120 H Total Protein 5.8 L Albumin 2.9 L Urine Appearance Urine WBC Urine Mucus 02/01/22 02/01/22 16:11 16:10 WBC 14.1 H RBC 3.97 L Hgb 11.6 L Hct 36.8 L RDW MPV Neut % (Auto) 80.6 H Lymph % (Auto) 9.3 L Lymph # (Auto) 1.31 L [place] # (Auto) 1.19 H Absolute Neutrophils 11.34 H Glucose Alkaline Phosphatase Total Protein Albumin Urine Appearance Hazy A Urine WBC 5 H Urine Mucus Mod A Meds: Medications Acetaminophen (Acetaminophen 325 Mg Tablet) 650 mg PO Q6HP PRN; Protocol PRN Reason: Per Pain Protocol/Fever > 101 Hydrocodone Bitart/Acetaminophen (Hydrocodone/Apap 10/325mg Tablet) 1 - 2 tab PO Q4H PRN; Protocol PRN Reason: Pain Last Admin: 02/02/22 04:25 Dose: 2 tab Documented by: Albuterol/Ipratropium (Ipratropium/Albuterol 3 Ml Ampul.Neb) 3 ml NEB Q4HP PRN PRN Reason: Shortness Of Breath Amantadine HCl (Amantadine Hcl 100 Mg Capsule) 100 mg PO BID SUE Last Admin: 02/01/22 23:12 Dose: Not Given Documented by: Benztropine Mesylate (Benztropine 1 Mg Tablet) 2 mg PO BID [facility] Last Admin: 02/01/22 23:02 Dose: 2 mg Documented by: Calcium Carbonate/Glycine (Calcium Carbonate 500 Mg Tab.Chew) 1,000 mg CHEWED Q4HP PRN PRN Reason: Indigestion Calcium Carbonate/Glycine (Calcium (Oyster Shell) 500 Mg Tablet) 500 mg PO BID [facility] Carvedilol (Carvedilol 6.25 Mg Tablet) 6.25 mg PO BIDCC [facility] Cyclobenzaprine HCl (Cyclobenzaprine 10 Mg Tablet) 10 mg PO TIDP PRN PRN Reason: Muscle Spasm Docusate Sodium (Docusate Sodium 100 Mg Capsule) 100 mg PO BID [facility] Last Admin: 02/01/22 23:01 Dose: 100 mg Documented by: Furosemide (Furosemide 20 Mg Tablet) 40 mg PO DAILY [facility] Potassium Chloride 40 meq/ (Dextrose) 520 mls @ 130 mls/hr IV UD PRN PRN Reason: Potassium < 3 Magnesium Sulfate (Magnesium Sulfate) 2 gm in 50 mls @ 50 mls/hr IV UD PRN PRN Reason: Magnesium </= 1.6 Lorazepam (Lorazepam 1 Mg Tablet) 1 mg PO BIDP PRN PRN Reason: Anxiety Losartan Potassium (Losartan 50 Mg Tablet) 100 mg PO DAILY [facility] Magnesium Citrate (Magnesium Citrate 300 Ml Oral.Becky) 300 ml PO DAILYP PRN PRN Reason: Constipation Morphine Sulfate (Morphine 4 Mg/Ml Vial) 0 mg IV Q3HP PRN PRN Reason: Pain Last Admin: 02/01/22 22:04 Dose: 2 mg Documented by: Olanzapine (Olanzapine 5 Mg Tablet) 7.5 mg PO [facility] Last Admin: 02/01/22 23:02 Dose: 7.5 mg Documented by: Ondansetron HCl (Ondansetron 4 Mg/2 Ml Vial) 4 mg IV Q4HP PRN PRN Reason: Nausea And Vomiting Budesonide- Formoterol [ Symbicort] 10.2 Gm Hfa Inhaler 2 dose INH BID [facility] Diclofenac Sodium 1 (% Gel) 2 dose TOPICAL TID [facility] Polyethylene Glycol (Polyethylene Glycol 3350 17 Gm Packet) 17 gm PO BID [facility] Last Admin: 02/01/22 23:06 Dose: 17 gm Documented by: Potassium Chloride (Potassium Chloride 10 Meq Tablet) 10 meq PO BIDCC SUE Potassium Chloride (Potassium Chloride 20 Meq Tablet) 40 meq PO UD PRN PRN Reason: Potssium is 3-3.5 Potassium Chloride (Potassium Chloride 20 Meq Tablet) 40 meq PO UD PRN PRN Reason: Potassium < 3 Prazosin HCl (Prazosin 1 Mg Capsule) 2 mg PO BID SUE Senna (Sennosides 1 Tablet) 1 tab PO BID [facility] Last Admin: 02/01/22 23:01 Dose: 1 tab Documented by: Simvastatin (Simvastatin 20 Mg Tablet) 20 mg PO HS [facility] Last Admin: 02/01/22 23:02 Dose: 20 mg Documented by: Sodium Chloride (0.9 % Sodium Chloride 10 Ml Syringe) 10 ml IV Q8 [facility] Last Admin: 02/02/22 05:47 Dose: 10 ml Documented by: Tiotropium [place] (Tiotropium [place] 18 Mcg Inhalant) 18 mcg INH DAILY SUE A/P Narrative A/P Narrative: A: *Left hip periprosthetic fracture: *Recent Left VICK (01/17): *Generalized weakness/deconditioning/falls: *COPD w/chronic hypoxia (2L O2@home) *CAD w/stent: *Anemia, since original arthroplasty: *HTN/HLD: *Depression/anxiety: *Obesity: BMI 37 *ADRIANE w/cpap: *Schizoaffective disorder: *Tobacco abuse: P: -jaja for ortho -Pain control -PT/OT -Continue home oxygen and as needed nebs at home inhalers -nocturnal cpap -Aspirin held for surgery continue statin and beta-rogelio and ARB -Continue home Lasix, monitor fluid balance -Continue psych medications -CM for placement -Smoking cessation counseling -ppx: SCD and postop per Ortho DNR Plan of Treatment: Options were presented to the patient including non-surgical and surgical op tions. Nonsurgical consisting of non-weightbearing and further immobilization carries the risk on non-union, injury to nerves and blood vessels and loss of ambulation. Surgical option is for open reduction internal fixation via plate and cable fixation with possible corail hip revision stem placement. At this time patient is interested in surgery. Plan is for open reduction internal fixation via plate and cable fixation with possible corail hip revision stem placement. Surgical risks were explained to the patient including but not limited to: pain, bleeding, infection, need for further surgery, injury to adjacent structures, stroke risk, cardiac complications, pulmonary complications, anesthesia reactions and . patient understands these risks and wishes to proceed with surgery. patient is to be NPO status on midnight for surgery sunday. Time Spent With Patient Time: Total time spent is greater than 50% in coordination of care (as documented) at patient's floor/unit and/or counseling patient: QUALITY VTE Deep Vein Thrombosis/Pulmonary Embolism Present on Admission: No
[2022-02-02] MEDS: POTASSIUM CHLORIDE 10 MEQ TABLET PO SCH ×2 (09:10→16:56)
[2022-02-02] MEDS: SENNOSIDES 1 TABLET PO SCH ×2 (09:10→20:31)
[2022-02-02] MEDS: BENZTROPINE 1 MG TABLET PO SCH ×2 (09:10→20:31)
[2022-02-02] MEDS: DOCUSATE SODIUM 100 MG CAPSULE PO SCH ×2 (09:10→20:31)
[2022-02-02] MEDS: LOSARTAN 50 MG TABLET PO SCH (09:10)
[2022-02-02] MEDS: CALCIUM (OYSTER SHELL) 500 MG TABLET PO SCH ×2 (09:10→20:32)
[2022-02-02] MEDS: FUROSEMIDE 20 MG TABLET PO SCH (09:10)
[2022-02-02] MEDS: CARVEDILOL 6.25 MG TABLET PO SCH ×2 (09:10→16:56)
[2022-02-02] MEDS: PRAZOSIN 1 MG CAPSULE PO SCH ×2 (09:11→20:31)
[2022-02-02] MEDS: POLYETHYLENE GLYCOL 3350 17 GM PACKET PO SCH ×2 (09:14→20:30)
[2022-02-02] MEDS: DICLOFENAC SODIUM 1% TOPICAL SCH ×3 (09:19→20:33)
[2022-02-02] MEDS: BUDESONIDE FORMOTEROL INH SCH ×2 (09:19→20:32)
[2022-02-02] MEDS: TIOTROPIUM BROMIDE 18 MCG INHALANT INH SCH (09:19)
[2022-02-02] MEDS: AMANTADINE HCL 100 MG CAPSULE PO SCH ×2 (09:25→20:31)
--- NOTE | 2022-02-02 11:57 | EKG ---
[facility] Test Date: 2022-02-01 Pat Name: Isrrael Carrasco Department: ED Room: Gender: Male Graduate Teaching Assistant: : 1950 Requested By: Daniel Barragan Order Number: [id number] Reading MD: Chris Mitchell Measurements Intervals [place] Rate: 105 P: 44 NH: 171 QRS: 28 QRSD: 107 T: 3 QT: 347 QTc: 459 Interpretive Statements Sinus tachycardia Abnormal R-wave progression, early transition Inferior infarct, old Abnormal lateral Q waves Baseline wander in lead(s) V5,V6 Electronically Signed On 02-02-2022 11:57:16 PDT by Chris Mitchell /store/M0/[id number]
[2022-02-02] MEDS: OLANZapine 5 MG TABLET PO SCH (20:31)
[2022-02-02] MEDS: SIMVASTATIN 20 MG TABLET PO SCH (20:31)
[2022-02-03] MEDS: 0.9 % SODIUM CHLORIDE 10 ML SYRINGE IV SCH ×3 (05:19→20:41)
--- NOTE | 2022-02-03 08:10 | Internal Med Progress Note ---
SUBJECTIVE Subjective Patient information: Note initiated : 02/03/22 at 8:09 am Service Date, if different from initiated Date: [] Patient: Isrrael Carrasco a 71 y/o M admitted on 02/01/22 for left hip pain/weakness. Chief Complaint: [] Interval history: History of present illness: Mr. Carrasco is a 71 year old M Patient recently left hip replacement on January 17 and on had a fall resulting in a nondisplaced fracture below the stem. He has had difficulty ambulating increasing pain since that time and had a repeat fall yesterday. He is now unable to bear weight as much more pain. Past medical history cleared COPD on 2 L nasal cannula. Work-up in the ED revealed an oblique displaced fracture of left hip. Dr. Payan was contacted. Patient is a smoker about half pack per day but wants to quit now. Sense of medication for parkinsonism or drug-induced extrapyramidal symptoms but not sure why. Reviewed imaging and ekg 02/02 No overnight event or new complaints. Surgery will be till tomorrow because her waiting for surgical equipment. Patient is wheezy a little bit but states she is always wheezy. Debilitated will likely need SNF. Chronic oxygen use. 02/03 Awaiting surgery today. Does seem to have some chronic tachycardia looking at old trends. Review of Systems: denies headache/fever/chills/nausea/vomiting/chest or abdominal pain/cough/dyspnea/diarrhea. Otherwise see above. Constitutional Vitals: Vital Signs Temp Pulse Resp BP Pulse Ox 98.0 F 97 H 15 123/73 97 02/03/22 07:23 02/03/22 07:23 02/03/22 07:23 02/03/22 07:23 02/03/22 07:23 Period Temp Pulse Resp BP Sys/[place] Pulse Ox Last 24 Hr 98 F-99.1 F 97-111 15-24 106-128/61-77 93-98 Intake and Output 02/02/22 02/03/22 02/03/22 21:59 05:59 13:59 Intake Total 220 200 Output Total 1200 400 Balance -980 -200 Weight 113.035 kg Intake & Output: Intake & Output 02/02/22 02/03/22 02/03/22 21:59 05:59 13:59 Intake Total 220 200 Output Total 1200 400 Balance -980 -200 Weight 113.035 kg Intake: Oral 220 200 Output: Urine Catheter Amount 1200 400 Other: Meal Dinner Percent of Meal Consumed 25% Feeding Ability Assist with Tray Set Up Urine Appearance Clear Clear Uretheral (Chase) Clear Urine Color Dark Yellow Dark Yellow Uretheral (Chase) Dark Yellow Stool Size Large Stool Color Brown Stool Consistency Soft Exam: General: Alert, Awake, No acute Distress, obese Eyes/N/T: EOMI, Head/Neck: neck supple, CV: RRR, No murmurs, Pulm: mild b/l wheezing, no rhonchi Abd: soft, nontender, +BS x4 Ext: no clubbing/cyanosis, 1+ b/l LE edema Neuro: Alert, no focal deficits, moves all extremities, Skin: warm/dry OBJ DATA Labs CBC & Chem 7: 02/02/22 05:16 02/02/22 05:16 Labs: Abnormal Lab Results 02/02/22 02/02/22 02/01/22 05:16 05:16 16:11 WBC RBC 3.50 L Hgb 10.5 L Hct 33.3 L RDW 14.6 H MPV 11.6 H Neut % (Auto) Lymph % (Auto) Lymph # (Auto) Smith # (Auto) 1.10 H Absolute Neutrophils Glucose 115 H Alkaline Phosphatase 120 H Total Protein 5.8 L Albumin 2.9 L Urine Appearance Urine WBC Urine Mucus 02/01/22 02/01/22 16:11 16:10 WBC 14.1 H RBC 3.97 L Hgb 11.6 L Hct 36.8 L RDW MPV Neut % (Auto) 80.6 H Lymph % (Auto) 9.3 L Lymph # (Auto) 1.31 L Smith # (Auto) 1.19 H Absolute Neutrophils 11.34 H Glucose Alkaline Phosphatase Total Protein Albumin Urine Appearance Hazy A Urine WBC 5 H Urine Mucus Mod A Meds: Medications Acetaminophen (Acetaminophen 325 Mg Tablet) 650 mg PO Q6HP PRN; Protocol PRN Reason: Per Pain Protocol/Fever > 101 Hydrocodone Bitart/Acetaminophen (Hydrocodone/Apap 10/325mg Tablet) 1 - 2 tab PO Q4H PRN; Protocol PRN Reason: Pain Last Admin: 02/02/22 23:42 Dose: 1 tab Documented by: Albuterol/Ipratropium (Ipratropium/Albuterol 3 Ml Ampul.Neb) 3 ml NEB Q4HP PRN PRN Reason: Shortness Of Breath Amantadine HCl (Amantadine Hcl 100 Mg Capsule) 100 mg PO BID [facility] Last Admin: 02/02/22 20:31 Dose: 100 mg Documented by: Benztropine Mesylate (Benztropine 1 Mg Tablet) 2 mg PO BID [facility] Last Admin: 02/02/22 20:31 Dose: 2 mg Documented by: Calcium Carbonate/Glycine (Calcium Carbonate 500 Mg Tab.Chew) 1,000 mg CHEWED Q4HP PRN PRN Reason: Indigestion Calcium Carbonate/Glycine (Calcium (Oyster Shell) 500 Mg Tablet) 500 mg PO BID [facility] Last Admin: 02/02/22 20:32 Dose: 500 mg Documented by: Carvedilol (Carvedilol 6.25 Mg Tablet) [facility] Last Admin: 02/02/22 16:56 Dose: 6.25 mg Documented by: Cyclobenzaprine HCl (Cyclobenzaprine 10 Mg Tablet) 10 mg PO TIDP PRN PRN Reason: Muscle Spasm Docusate Sodium (Docusate Sodium 100 Mg Capsule) 100 mg PO BID [facility] Last Admin: 02/02/22 20:31 Dose: 100 mg Documented by: Furosemide (Furosemide 20 Mg Tablet) 40 mg PO DAILY [facility] Last Admin: 02/02/22 09:10 Dose: 40 mg Documented by: Potassium Chloride 40 meq/ (Dextrose) 520 mls @ 130 mls/hr IV UD PRN PRN Reason: Potassium < 3 Magnesium Sulfate (Magnesium Sulfate) 2 gm in 50 mls @ 50 mls/hr IV UD PRN PRN Reason: Magnesium </= 1.6 Lorazepam (Lorazepam 1 Mg Tablet) 1 mg PO BIDP PRN PRN Reason: Anxiety Losartan Potassium (Losartan 50 Mg Tablet) 100 mg PO DAILY [facility] Last Admin: 02/02/22 09:10 Dose: 100 mg Documented by: Magnesium Citrate (Magnesium Citrate 300 Ml Oral.Becky) 300 ml PO DAILYP PRN PRN Reason: Constipation Morphine Sulfate (Morphine 4 Mg/Ml Vial) 0 mg IV Q3HP PRN PRN Reason: Pain Last Admin: 02/01/22 22:04 Dose: 2 mg Documented by: Olanzapine (Olanzapine 5 Mg Tablet) 7.5 mg PO HS [facility] Last Admin: 02/02/22 20:31 Dose: 7.5 mg Documented by: Ondansetron HCl (Ondansetron 4 Mg/2 Ml Vial) 4 mg IV Q4HP PRN PRN Reason: Nausea And Vomiting Budesonide- Formoterol [ Symbicort] 10.2 Gm Hfa Inhaler 2 dose INH BID [facility] Last Admin: 02/02/22 20:32 Dose: Not Given Documented by: Diclofenac Sodium 1 (% Gel) 2 dose TOPICAL TID [facility] Last Admin: 02/02/22 20:33 Dose: Not Given Documented by: Polyethylene Glycol (Polyethylene Glycol 3350 17 Gm Packet) 17 gm PO BID [facility] Last Admin: 02/02/22 20:30 Dose: 17 gm Documented by: Potassium Chloride (Potassium Chloride 10 Meq Tablet) 10 meq PO BIDCC [facility] Last Admin: 02/02/22 16:56 Dose: 10 meq Documented by: Potassium Chloride (Potassium Chloride 20 Meq Tablet) 40 meq PO UD PRN PRN Reason: Potssium is 3-3.5 Potassium Chloride (Potassium Chloride 20 Meq Tablet) 40 meq PO UD PRN PRN Reason: Potassium < 3 Prazosin HCl (Prazosin 1 Mg Capsule) 2 mg PO BID [facility] Last Admin: 02/02/22 20:31 Dose: 2 mg Documented by: Scopolamine (Scopolamine 1 Patch Patch) 1 patch TOPICAL PREOP PRN PRN Reason: Nausea And Vomiting Stop: 02/03/22 23:59 Senna (Sennosides 1 Tablet) 1 tab PO BID [facility] Last Admin: 02/02/22 20:31 Dose: 1 tab Documented by: Simvastatin (Simvastatin 20 Mg Tablet) 20 mg PO [facility] Last Admin: 02/02/22 20:31 Dose: 20 mg Documented by: Sodium Chloride (0.9 % Sodium Chloride 10 Ml Syringe) 10 ml IV Q8 [facility] Last Admin: 02/03/22 05:19 Dose: 10 ml Documented by: Tiotropium [address] (Tiotropium [address] 18 Mcg Inhalant) 18 mcg INH DAILY [facility] Last Admin: 02/02/22 09:19 Dose: Not Given Documented by: A/P Narrative A/P Narrative: A: *Left hip periprosthetic fracture: *Recent Left VICK (01/17): *Generalized weakness/deconditioning/falls: *COPD w/chronic hypoxia (2L O2@home) *CAD w/stent: *Anemia, since original arthroplasty: *HTN/HLD: *Depression/anxiety: *Obesity: BMI 37 *ADRIANE w/cpap: *Schizoaffective disorder: *Tobacco abuse: P: -jaja for ortho today -Pain control -PT/OT -Continue home oxygen and as needed -prn nebs at home inhalers -nocturnal cpap -ASA held for surgery, continue statin and BB/ARB -Continue home Lasix, monitor fluid balance -Continue psych medications -CM for placement -Smoking cessation counseling -ppx: SCD and postop per Ortho DNR Plan of Treatment: Options were presented to the patient including non-surgical and surgical opti ons. Nonsurgical consisting of non-weightbearing and further immobilization carries the risk on non-union, injury to nerves and blood vessels and loss of ambulation. Surgical option is for open reduction internal fixation via plate and cable fixation with possible corail hip revision stem placement. At this time patient is interested in surgery. Plan is for open reduction internal fixation via plate and cable fixation with possible corail hip revision stem placement. Surgical risks were explained to the patient including but not limited to: pain, bleeding, infection, need for further surgery, injury to adjacent structures, stroke risk, cardiac complications, pulmonary complications, anesthesia reactions and . patient understands these risks and wishes to proceed with surgery. patient is to be NPO status on midnight for surgery sunday. Time Spent With Patient Time: Total time spent is greater than 50% in coordination of care (as documented) at patient's floor/unit and/or counseling patient: QUALITY VTE Deep Vein Thrombosis/Pulmonary Embolism Present on Admission: No
[2022-02-03] MEDS: POLYETHYLENE GLYCOL 3350 17 GM PACKET PO SCH ×2 (08:52→20:42)
[2022-02-03] MEDS: DOCUSATE SODIUM 100 MG CAPSULE PO SCH ×3 (08:52→20:44)
[2022-02-03] MEDS: BUDESONIDE FORMOTEROL INH SCH ×2 (08:53→20:44)
[2022-02-03] MEDS: SENNOSIDES 1 TABLET PO SCH ×2 (08:53→20:44)
[2022-02-03] MEDS: DICLOFENAC SODIUM 1% TOPICAL SCH ×3 (08:53→20:44)
[2022-02-03] MEDS: CALCIUM (OYSTER SHELL) 500 MG TABLET PO SCH ×2 (08:53→20:43)
[2022-02-03] MEDS: TIOTROPIUM BROMIDE 18 MCG INHALANT INH SCH (08:53)
[2022-02-03] MEDS: LOSARTAN 50 MG TABLET PO SCH (09:03)
[2022-02-03] MEDS: CARVEDILOL 6.25 MG TABLET PO SCH ×2 (09:03→17:59)
[2022-02-03] MEDS: PRAZOSIN 1 MG CAPSULE PO SCH ×2 (09:03→20:42)
[2022-02-03] MEDS: POTASSIUM CHLORIDE 10 MEQ TABLET PO SCH ×2 (09:03→19:01)
[2022-02-03] MEDS: FUROSEMIDE 20 MG TABLET PO SCH (09:03)
[2022-02-03] MEDS: BENZTROPINE 1 MG TABLET PO SCH ×2 (09:03→20:43)
[2022-02-03] MEDS: HYDROcodone/APAP 10/325MG TABLET PO PRN ×4 (09:03→23:20)
[2022-02-03] MEDS: AMANTADINE HCL 100 MG CAPSULE PO SCH ×2 (09:03→20:44)
[2022-02-03] MEDS ORDERED: SCOPOLAMINE 1 PATCH PATCH TOPICAL PRN (12:00)
[2022-02-03] MEDS ORDERED: ceFAZolin 2 GM in DEXTROSE 5% IN WATER 50 ML IV SCH ×2 (12:45→15:30)
[2022-02-03] MEDS ORDERED: PROPOFOL 200 MG/20 ML VIAL IV ONE (13:05)
[2022-02-03] MEDS ORDERED: VASOPRESSIN 20 UNIT/ML VIAL ONE (13:05)
[2022-02-03] MEDS ORDERED: GLYCOPYRROLATE 0.2 MG/ML VIAL IV ONE (13:05)
[2022-02-03] MEDS ORDERED: DEXAMETHASONE 10 MG/ML VIAL ONE (13:05)
[2022-02-03] MEDS ORDERED: ONDANSETRON 4 MG/2 ML VIAL ONE (13:05)
[2022-02-03] MEDS ORDERED: LIDOCAINE HCL/PF 100 MG/5 ML SYRINGE IV ONE (13:05)
[2022-02-03] MEDS ORDERED: ePHEDrine 50 MG/5 ML SYRINGE (ANEST) IV ONE (13:05)
[2022-02-03] MEDS ORDERED: KETAMINE 50 MG/ML Syringe (ANEST) IV ONE (13:05)
[2022-02-03] MEDS ORDERED: PHENYLephrine 1 MG/10 ML SYRINGE (ANEST) ONE (13:05)
[2022-02-03] MEDS ORDERED: EPINEPHrine 1 MG/10 ML (1:10,000) SYRINGE IV ONE (13:05)
[2022-02-03] MEDS ORDERED: MAGNESIUM SULFATE 2 GM/50 ML BAG IV ONE (13:05)
[2022-02-03] MEDS ORDERED: TRANEXAMIC ACID 1,000 MG/10 ML VIAL ONE (13:05)
[2022-02-03] MEDS ORDERED: GENTAMICIN SULFATE 800 MG/20 ML VIAL IR ONE (13:47)
--- NOTE | 2022-02-03 15:14 | Brief Operative Note ---
Brief Operative Note Date of procedure: 02/03/22 Pre-op diagnosis: left hip periprosthetic femur fracture Post-op diagnosis: same Procedure: left hip ORIF femur with revision cele femoral component Grafts/Implants: Yes Anesthesia: spinal Findings: unstable stem, comminuted femur fracture Complications: none Surgeon: Andre Payan Special Warfare Boat Operator: Bereket Grigsby Estimated blood loss (cc): 400 Specimens Removed/Pathology: none sent Condition: stable Disposition: PACU
--- NOTE | 2022-02-03 15:15 | Discharge Plan ---
Discharge Instructions - CELE Patient Instructions Total Hip Protocol: Follow activity instructions as provided by Physical Therapy. Dressing Care: May shower in 2 days Discharge Plan Patient/Caregiver Discharge Instructions Activity: as per physical therapy and other Diet: Regular Diet Prescriptions: No Action losartan [Cozaar] 50 MG tablet 100 mg PO DAILY 0RF cyclobenzaprine 10 MG tablet 10 mg PO TIDP PRN (Reason: Spasms) 0RF olanzapine 5 MG tablet 7.5 mg PO HS 0RF potassium chloride 10 MEQ tablet extended release 10 meq PO BIDCC 0RF calcium carbonate 600 MG tablet 600 mg PO BID 0RF simvastatin 20 MG tablet 20 mg PO HS 0RF calcium carbonate 500 MG tablet,chewable 1,000 mg CHEWED Q4HP PRN (Reason: Indigestion) 0RF benztropine 1 MG tablet 2 mg PO BID 0RF furosemide 20 MG tablet 40 mg PO DAILY 0RF albuterol sulfate [Ventolin HFA] 1 PUFF HFA aerosol inhaler 2 puff INH Q4HP PRN (Reason: Shortness Of Breath) 0RF fluticasone propionate 1 SPRAY spray,suspension 1 spray NS DAILY 0RF clotrimazole 1 DOSE cream 1 dose topical BIDP PRN (Reason: Rash) 0RF prazosin 2 MG capsule 2 mg PO BID 0RF Spiriva with HandiHaler 18 MCG capsule, w/inhalation device 18 mcg INH DAILY 0RF cholecalciferol (vitamin D3) [Vitamin D3] 1,000 UNIT tablet 2,000 unit PO DAILY 0RF budesonide-formoterol [Symbicort] 10.2 GM HFA aerosol inhaler 2 puff INH BID 0RF Label Comments: SYMBICORT 160 MCG-4.5 MCG/INHALATION Invega Sustenna 234 MG/1.5 ML syringe 234 mg IM QMONTH 0RF sennosides [Senna Lax] 8.6 mg Tablet 8.6 mg PO BID 0RF acetaminophen 325 mg Tablet 650 mg PO Q6H PRN (Reason: Pain) 0RF carvedilol 6.25 mg Tablet 6.25 mg PO BIDCC 0RF Rx Instructions: must administer with a meal/food ipratropium-albuterol [DuoNeb] 0.5 mg-3 mg(2.5 mg base)/3 mL Solution For Nebulization 3 ml INHALATION Q4H PRN (Reason: Shortness Of Breath) 0RF polyethylene glycol 3350 [Miralax] 17 gram Powder In Packet 17 g PO BID 0RF amantadine HCl 100 mg Capsule 100 mg PO BID 0RF magnesium citrate Solution 300 ml PO DAILYP PRN (Reason: Constipation) 0RF lorazepam 1 mg Tablet 1 mg PO BIDP PRN (Reason: Anxiety) 0RF diclofenac sodium 1 % Gel 2 g TOPICAL TID 0RF Rx Instructions: apply to single elbow, wrist or hand; for hand includes palm/fingers/back of hand aspirin [Aspirin Low Dose] 81 mg Tablet,Delayed Release (Dr/Ec) 81 mg PO BID Qty: 60 0RF hydrocodone-acetaminophen 10-325 mg Tablet 1 - 2 tab PO Q4H PRN (Reason: Pain) Qty: 60 0RF Follow Up Plan Follow up with: Andre Payan MD [Physician] - Andre Myrick PA-C [Primary Care Provider] - Patient Disposition: Xfer SNF Plan of Treatment: Options were presented to the patient including non-surgical and surgical opt ions. Nonsurgical consisting of non-weightbearing and further immobilization carries the risk on non-union, injury to nerves and blood vessels and loss of ambulation. Surgical option is for open reduction internal fixation via plate and cable fixation with possible corail hip revision stem placement. At this time patient is interested in surgery. Plan is for open reduction internal fixation via plate and cable fixation with possible corail hip revision stem placement. Surgical risks were explained to the patient including but not limited to: pain, bleeding, infection, need for further surgery, injury to adjacent structures, stroke risk, cardiac complications, pulmonary complications, anesthesia reactions and . patient understands these risks and wishes to proceed with surgery. patient is to be NPO status on midnight for surgery sunday. Rehab Potential: Good I certify that the patient requires SNF services: Yes Overall status at discharge: patient is progressing back to baseline Discharge Orders: Discharge Order (Routine); Ordered 02/05/22 Ordered By: Andre Payan Discharge Comment: cc: orif and revision cele s/p periprosthetic fract
[2022-02-03] MEDS ORDERED: ONDANSETRON 4 MG ODT TABLET SL PRN (15:16)
[2022-02-03] MEDS ORDERED: FLEETS ADULT ENEMA PR PRN (15:16)
[2022-02-03] MEDS ORDERED: MAGNESIUM HYDROXIDE 30 ML ORAL.SUSP PO PRN (15:16)
[2022-02-03] MEDS ORDERED: BENZOCAINE/MENTHOL 1 LOZENGE PO PRN ×2 (15:16→15:17)
[2022-02-03] MEDS ORDERED: BISACODYL 10 MG SUPP.RECT PR PRN (15:16)
[2022-02-03] MEDS ORDERED: POLYETHYLENE GLYCOL 3350 17 GM PACKET PO PRN (15:16)
[2022-02-03] MEDS ORDERED: NALOXONE HCL 0.4 MG/ML VIAL IV PRN (15:17)
[2022-02-03] MEDS ORDERED: ACETAMINOPHEN 1,000 MG/100 ML BAG IV ONE (15:17)
[2022-02-03] MEDS ORDERED: LACTATED RINGERS 250 ML IV PRN (15:17)
[2022-02-03] MEDS ORDERED: fentaNYL 100 MCG/2 ML VIAL IV PRN (15:17)
[2022-02-03] MEDS ORDERED: ONDANSETRON 4 MG/2 ML VIAL IV PRN (15:17)
[2022-02-03] MEDS ORDERED: METHOCARBAMOL 1,000 MG/10 ML VIAL IV PRN (15:17)
[2022-02-03] MEDS ORDERED: IPRATROPIUM/ALBUTEROL 3 ML AMPUL.NEB NEB PRN (15:17)
[2022-02-03] MEDS ORDERED: LACTATED RINGERS 1,000 ML IV SCH (15:30)
--- NOTE | 2022-02-03 16:59 | XRay Report ---
CLINICAL INFORMATION: Follow up oblique fracture of the proximal left femoral diaphysis adjacent to a femoral stem total hip prostheses. COMPARISON: Preoperative films 02/01/2022 FINDINGS: The oblique fracture of the left proximal femoral diaphysis has been reduced anatomic alignment and now transfixed by lateral plate and cerclage wires. Left total hip prostheses remains anatomically aligned without loosening or infection. Both SI and right hip joints are normal. Soft tissue swelling of the surgical site as expected.. IMPRESSION: ORIF oblique fracture proximal femoral diaphysis. Interpreted and Authenticated by: Andre Cortez 02/03/22
--- NOTE | 2022-02-03 17:21 | Operative Note ---
DATE OF OPERATION: 02/03/2022 PRE-OP DIAGNOSIS: Periprosthetic fracture proximal femur, left hip, status post total hip arthroplasty. POST-OP DIAGNOSIS: Periprosthetic fracture proximal femur, left hip, status post total hip arthroplasty. PROCEDURE: 1. Open reduction and internal fixation of left periprosthetic femur fracture proximal femur/greater trochanter. 2. Revision left total hip arthroplasty, femoral component only. SURGEON: Andre Payan M.D. PROGRAM COUNSELOR SURGEON: Rylan Grigsby PA-C. The PA's assistance was required for the safe and efficient completion of the entire case. This providers expertise and technical skill were required throughout the case. The PA assisted with preoperative coordination, intraoperative retraction, limb manipulation, wound closure, dressing application, as well as post-operative documentation and care coordination. ANESTHESIA: Spinal with LMA assist. ESTIMATED BLOOD LOSS: 400 mL. COMPLICATIONS: None noted. SPECIMENS REMOVED: None. DRAINS: None. DISPOSITION: To PACU in stable condition. IMPLANTS: Alanis and Nephew 8-cable Accord standard trochanteric metal mine inspector Accord 2.0 mm cables x6 Corail femoral stem MONTOYA-coated, revision, 135 degree standard collar, size 20 Biolox delta ceramic femoral head revision 36, +8.5 INDICATIONS: About 2 weeks ago, the patient had a total hip arthroplasty. He was back at his halfway and fell. He sustained a nondisplaced fracture of the proximal femur, which appeared to be stable, so we elected to proceed with nonoperative treatment. He then fell again and displaced the fracture and the stem subsided. We just felt that it was unstable at this point. After a long discussion of treatment options, the patient elected to proceed with a revision total hip arthroplasty and ORIF. The risks and benefits were discussed with the patient in detail including, but not limited to, the risks of anesthesia, problems with the heart or lungs related to anesthesia, infection, compromise or injury to the nerves and blood vessels, deep venous thrombosis, pulmonary embolism, pneumonia, continued pain after surgery, worsening pain or symptoms after surgery, swelling, loss of motion, instability, leg length discrepancy, and need for repeat surgery. DESCRIPTION OF PROCEDURE: The patient was seen in pre-anesthesia waiting room where all questions were answered and the correct side and site were identified and marked. The patient was then brought to the operating room and administered the anesthetic and given pre-operative antibiotics. A timeout was then called. The patient was placed in the lateral decubitus position with all prominences well padded using the [place] frame and the extremity was prepped and draped in the usual sterile fashion. Anesthesia gave the patient 1 gram of Tranexamic Acid via an intravenous route. A standard posterior approach was made. We dissected through the skin and subcutaneous tissue to the deep fascia. The deep fascia was split in line with the incision and a Charnley retractor was placed. We exposed, tagged, and incised the short external rotators and piriformis tendon and retracted them posteriorly to help protect the sciatic nerve which was palpated throughout the case. We then performed a T-capsulotomy and tagged the capsule edges. We dislocated the hip, removed the ball, and I inspected the acetabulum which was normal in appearance, and the polyethylene was intact and normal in appearance. We visualized the stem. It had subsided and was unstable. We used an extractor and we were able to extract the stem easily. I then visualized the fracture. It was multi-fragmentary, comminuted proximal femur, including the greater trochanter. I then placed a Alanis and Nephew sizer, followed by a 195 mm 8-cable Accord standard trochanteric metal mine inspector. I used clamps to clamp the fracture anatomically. I then used a six cables to cable this back in place anatomically with good approximation of the fracture site. Attention was next turned towards the stem. We first reamed and then broached and then placed a trial with a size 20 stem. We placed an 8.5 mm head and reduced the hip. There was excellent rotational stability and length and elected to proceed with this. I then placed the standard Corail cementless femoral stem with the appropriate version, 135 degree standard collar, size 20 with a +8.5 mm Biolox delta ceramic femoral head. The hip was reduced, again taken through range of motion, found to be stable, and tension and length were appropriate. We again irrigated. We closed the deep capsule with FiberWire. The split in the vastus lateralis was closed with #1 Stratafix. IT band was closed with #1 Stratafix. The subcutaneous layer was closed in layers with #1 Stratafix, 0 Vicryl, 3-0 Monocryl, and flex. He was dressed with Xeroform, 4 x 4's, ABD, and Medipore tape. He was placed into an abductor pillow. He was then extubated, transferred to the stretcher and taken to PACU in stable condition. ALFREDA:reyes Job ID: [id number] Doc ID: [id number] Kelly Payan MD
[2022-02-03] MEDS: LACTATED RINGERS 1,000 ML IV SCH ×3 (17:53→23:13)
[2022-02-03] MEDS: morphine 4 MG/ML VIAL IV PRN ×2 (19:02→20:42)
[2022-02-03] MEDS: METHOCARBAMOL 750 MG TABLET PO PRN (19:46)
[2022-02-03] MEDS: ceFAZolin 1 GM VIAL IV SCH (20:41)
[2022-02-03] MEDS: OLANZapine 5 MG TABLET PO SCH (20:42)
[2022-02-03] MEDS: SIMVASTATIN 20 MG TABLET PO SCH (20:43)
[2022-02-03] MEDS ORDERED: SENNOSIDES 1 TABLET PO SCH (21:00)
[2022-02-04] MEDS: LORazepam 1 MG TABLET PO PRN (03:45)
[2022-02-04] MEDS: HYDROcodone/APAP 10/325MG TABLET PO PRN ×3 (03:45→17:29)
[2022-02-04] MEDS: ceFAZolin 1 GM VIAL IV SCH (04:10)
[2022-02-04] MEDS: 0.9 % SODIUM CHLORIDE 10 ML SYRINGE IV SCH ×3 (04:10→20:33)
[2022-02-04 06:34] LABS: Hematocrit 29.9 % (40.1-51.0); Hemoglobin 9.4 g/dL (13.7-17.5)
[2022-02-04 06:57] LABS: Blood Urea Nitrogen 13 mg/dL (8-23); Calcium 9.3 mg/dL (8.6-10.4); Carbon Dioxide 24 mmol/L (22-30); Chloride 99 mmol/L (96-108); Glomerular Filtration Rate 85; Glucose 108 mg/dL (70-105)
[2022-02-04] MEDS: POLYETHYLENE GLYCOL 3350 17 GM PACKET PO SCH ×2 (08:44→20:33)
[2022-02-04] MEDS: SENNOSIDES 1 TABLET PO SCH ×2 (08:44→20:34)
[2022-02-04] MEDS: METHOCARBAMOL 750 MG TABLET PO PRN ×2 (08:45→17:30)
[2022-02-04] MEDS: CALCIUM (OYSTER SHELL) 500 MG TABLET PO SCH ×2 (08:45→20:34)
[2022-02-04] MEDS: POTASSIUM CHLORIDE 10 MEQ TABLET PO SCH ×2 (08:46→17:30)
[2022-02-04] MEDS: PRAZOSIN 1 MG CAPSULE PO SCH ×2 (08:46→20:34)
[2022-02-04] MEDS: LOSARTAN 50 MG TABLET PO SCH (08:46)
[2022-02-04] MEDS: FUROSEMIDE 20 MG TABLET PO SCH (08:46)
[2022-02-04] MEDS: BENZTROPINE 1 MG TABLET PO SCH ×2 (08:46→20:34)
[2022-02-04] MEDS: DOCUSATE SODIUM 100 MG CAPSULE PO SCH ×3 (08:46→20:34)
[2022-02-04] MEDS: CARVEDILOL 6.25 MG TABLET PO SCH ×2 (08:46→17:30)
[2022-02-04] MEDS: LACTATED RINGERS 1,000 ML IV SCH ×2 (08:47→14:00)
--- NOTE | 2022-02-04 08:51 | Orthopedic Progress Note ---
SUBJECTIVE Subjective Patient information: Note initiated : 02/04/22 at 8:49 am Service Date, if different from initiated Date: [] Patient: Isrrael Carrasco 71 y/o M admitted on 02/01/22 for left hip pain/weakness. Chief Complaint: [left hip pain] Principal diagnosis: s/p left hip periposthetic fracture Pertinent ROS: 10 points reviewed and are negative except where mentioned Constitutional Vitals: Vital Signs Temp Pulse Resp BP Pulse Ox 98.9 F 94 H 20 138/86 94 02/04/22 07:51 02/04/22 07:51 02/04/22 07:51 02/04/22 07:51 02/04/22 07:51 Period Temp Pulse Resp BP Sys/[place] Pulse Ox Last 24 Hr 97.0 F-98.9 F 81-123 13-28 76-143/37-132 92-100 Intake and Output 02/03/22 02/04/22 02/04/22 21:59 05:59 13:59 Intake Total 2700 956 Output Total 300 950 Balance 2400 6 Weight 247 lb 4.8 oz Intake & Output: Intake & Output 02/03/22 02/04/22 02/04/22 21:59 05:59 13:59 Intake Total 2700 956 Output Total 300 950 Balance 2400 6 Weight 247 lb 4.8 oz Intake: IV 100 656 Lactated Ringers 1,000 ml @ 125 656 mls/hr IV .Q8H [facility] Rx#: [id number] Oral 300 IV - Manual Only 2600 Output: Urine Catheter Amount 100 950 Void Amount 100 Estimated Blood Loss 100 Other: Urine Appearance Clear Clear Uretheral (Chase) Clear Urine Color Dark Yellow Dark Yellow Uretheral (Chase) Dark Yellow OBJ DATA Labs CBC & Chem 7: 02/04/22 05:22 02/04/22 05:22 Labs: Abnormal Lab Results 02/04/22 02/04/22 02/02/22 05:22 05:22 05:16 WBC RBC Hgb 9.4 L Hct 29.9 L RDW MPV Neut % (Auto) Lymph % (Auto) Lymph # (Auto) [place] # (Auto) Absolute Neutrophils Glucose 108 H Alkaline Phosphatase Total Protein 5.8 L Albumin 2.9 L Urine Appearance Urine WBC Urine Mucus 02/02/22 02/01/22 02/01/22 05:16 16:11 16:11 WBC 14.1 H RBC 3.50 L 3.97 L Hgb 10.5 L 11.6 L Hct 33.3 L 36.8 L RDW 14.6 H MPV 11.6 H Neut % (Auto) 80.6 H Lymph % (Auto) 9.3 L Lymph # (Auto) 1.31 L [place] # (Auto) 1.10 H 1.19 H Absolute Neutrophils 11.34 H Glucose 115 H Alkaline Phosphatase 120 H Total Protein Albumin Urine Appearance Urine WBC Urine Mucus 02/01/22 16:10 WBC RBC Hgb Hct RDW MPV Neut % (Auto) Lymph % (Auto) Lymph # (Auto) [place] # (Auto) Absolute Neutrophils Glucose Alkaline Phosphatase Total Protein Albumin Urine Appearance Hazy A Urine WBC 5 H Urine Mucus Mod A Meds: Medications Acetaminophen (Acetaminophen 325 Mg Tablet) 650 mg PO Q6HP PRN; Protocol PRN Reason: Per Pain Protocol/Fever > 101 Hydrocodone Bitart/Acetaminophen (Hydrocodone/Apap 10/325mg Tablet) 1 - 2 tab PO Q4H PRN; Protocol PRN Reason: Pain Last Admin: 02/04/22 03:45 Dose: 2 tab Documented by: Hydrocodone Bitart/Acetaminophen (Hydrocodone/Apap 10/325mg Tablet) 0 tab PO Q4HP PRN; Protocol PRN Reason: Per Pain Protocol Albuterol/Ipratropium (Ipratropium/Albuterol 3 Ml Ampul.Neb) 3 ml NEB Q4HP PRN PRN Reason: Shortness Of Breath Amantadine HCl (Amantadine Hcl 100 Mg Capsule) 100 mg PO BID [facility] Last Admin: 02/03/22 20:44 Dose: 100 mg Documented by: Benztropine Mesylate (Benztropine 1 Mg Tablet) 2 mg PO BID [facility] Last Admin: 02/03/22 20:43 Dose: 2 mg Documented by: Bisacodyl (Bisacodyl 10 Mg Supp.Rect) 10 mg HI Q2-3DAYS PRN PRN Reason: Constipation Calcium Carbonate/Glycine (Calcium Carbonate 500 Mg Tab.Chew) 1,000 mg CHEWED Q4HP PRN PRN Reason: Indigestion Calcium Carbonate/Glycine (Calcium (Oyster Shell) 500 Mg Tablet) 500 mg PO BID [facility] Last Admin: 02/03/22 20:43 Dose: 500 mg Documented by: Carvedilol (Carvedilol 6.25 Mg Tablet) 6.25 mg PO BIDCC [facility] Last Admin: 02/03/22 17:59 Dose: Not Given Documented by: Cyclobenzaprine HCl (Cyclobenzaprine 10 Mg Tablet) 10 mg PO TIDP PRN PRN Reason: Muscle Spasm Docusate Sodium (Docusate Sodium 100 Mg Capsule) 100 mg PO BID [facility] Last Admin: 02/03/22 20:44 Dose: Not Given Documented by: Docusate Sodium (Docusate Sodium 100 Mg Capsule) 100 mg PO BID [facility] Last Admin: 02/03/22 20:43 Dose: 100 mg Documented by: Fondaparinux (Fondaparinux Sodium 2.5 Mg/0.5 Ml Syringe) 2.5 mg SQ DAILY [facility] Furosemide (Furosemide 20 Mg Tablet) 40 mg PO DAILY [facility] Last Admin: 02/03/22 09:03 Dose: 40 mg Documented by: Potassium Chloride 40 meq/ (Dextrose) 520 mls @ 130 mls/hr IV UD PRN PRN Reason: Potassium < 3 Magnesium Sulfate (Magnesium Sulfate) 2 gm in 50 mls @ 50 mls/hr IV UD PRN PRN Reason: Magnesium </= 1.6 Lactated Ringer's (Lactated Ringers) 1,000 mls @ 125 mls/hr IV .Q8H [facility] Last Admin: 02/03/22 23:13 Dose: 125 mls/hr Documented by: Lorazepam (Lorazepam 1 Mg Tablet) 1 mg PO BIDP PRN PRN Reason: Anxiety Last Admin: 02/04/22 03:45 Dose: 1 mg Documented by: Losartan Potassium (Losartan 50 Mg Tablet) 100 mg PO DAILY [facility] Last Admin: 02/03/22 09:03 Dose: 100 mg Documented by: Magnesium Citrate (Magnesium Citrate 300 Ml Oral.Becky) 300 ml PO DAILYP PRN PRN Reason: Constipation Magnesium Hydroxide (Magnesium Hydroxide 30 Ml Oral.Susp) 30 ml PO BIDP PRN PRN Reason: Constipation Methocarbamol (Methocarbamol 750 Mg Tablet) 750 mg PO Q6HP PRN PRN Reason: Muscle Spasm Last Admin: 02/03/22 19:46 Dose: 750 mg Documented by: Morphine Sulfate (Morphine 4 Mg/Ml Vial) 0 mg IV Q1HP PRN; Protocol PRN Reason: Per Pain Protocol Last Admin: 02/03/22 20:42 Dose: 4 mg Documented by: Olanzapine (Olanzapine 5 Mg Tablet) 7.5 mg PO [facility] Last Admin: 02/03/22 20:42 Dose: 7.5 mg Documented by: Ondansetron HCl (Ondansetron 4 Mg/2 Ml Vial) 4 mg IV Q4HP PRN PRN Reason: Nausea And Vomiting Ondansetron HCl (Ondansetron 4 Mg Odt Tablet) 4 mg SL Q4HP PRN; Protocol PRN Reason: Nausea And Vomiting Budesonide- Formoterol [ Symbicort] 10.2 Gm Hfa Inhaler 2 dose INH BID [facility] Last Admin: 02/03/22 20:44 Dose: Not Given Documented by: Diclofenac Sodium 1 (% Gel) 2 dose TOPICAL TID [facility] Last Admin: 02/03/22 20:44 Dose: Not Given Documented by: Polyethylene Glycol (Polyethylene Glycol 3350 17 Gm Packet) 17 gm PO BID [facility] Last Admin: 02/03/22 20:42 Dose: 17 gm Documented by: Polyethylene Glycol (Polyethylene Glycol 3350 17 Gm Packet) 17 gm PO DAILYP PRN PRN Reason: Constipation Potassium Chloride (Potassium Chloride 10 Meq [facility]t) [facility] Admin: 02/03/22 19:01 Dose: 10 meq Documented by: Potassium Chloride (Potassium Chloride 20 Meq Tablet) 40 meq PO UD PRN PRN Reason: Potssium is 3-3.5 Potassium Chloride (Potassium Chloride 20 Meq Tablet) 40 meq PO UD PRN PRN Reason: Potassium < 3 Prazosin HCl (Prazosin 1 Mg Capsule) 2 mg PO BID [facility] Last Admin: 02/03/22 20:42 Dose: 2 mg Documented by: Senna (Sennosides 1 Tablet) 1 tab PO BID [facility] Last Admin: 02/03/22 20:44 Dose: 1 tab Documented by: Simvastatin (Simvastatin 20 Mg Tablet) 20 mg PO [facility] Last Admin: 02/03/22 20:43 Dose: 20 mg Documented by: Sodium Biphosphate/Sodium Phosphate (Fleets Adult Enema) 1 dose HI Q3-4DAYS PRN PRN Reason: Constipation Sodium Chloride (0.9 % Sodium Chloride 10 Ml Syringe) 10 ml IV Q8 [facility] Last Admin: 02/04/22 04:10 Dose: 10 ml Documented by: Throat Lozenges (Benzocaine/Menthol 1 Lozenge) 1 lozenge PO PRN PRN PRN Reason: Sore Throat Tiotropium [place] (Tiotropium [place] 18 Mcg Inhalant) 18 mcg INH DAILY [facility] Last Admin: 02/03/22 08:53 Dose: Not Given Documented by: A/P Narrative A/P Narrative: Patient seen and examined this am. Awake, alert, answers questions appropriately, trending back to baseline. Has no complaints of pain on current regimen. Dressing at [facility] is clean dry and intact. ice pack and SCDs in place. Both lower extremities are warm, well perfused and neuro intact. Will continue PT/OT, pain control, Non-WB status with E Plan is for expected discharge in 1-2 days to rehab with follow up at [facility] in 10- 14 days. Time Spent With Patient Time: Total time spent is greater than 50% in coordination of care (as documented) at patient's floor/unit and/or counseling patient:
[2022-02-04] MEDS: DICLOFENAC SODIUM 1% TOPICAL SCH ×3 (09:04→20:38)
[2022-02-04] MEDS: TIOTROPIUM BROMIDE 18 MCG INHALANT INH SCH (09:04)
[2022-02-04] MEDS: BUDESONIDE FORMOTEROL INH SCH ×2 (09:04→20:37)
[2022-02-04] MEDS: AMANTADINE HCL 100 MG CAPSULE PO SCH ×2 (10:21→20:34)
--- NOTE | 2022-02-04 12:02 | Internal Med Progress Note ---
SUBJECTIVE Subjective Patient information: Note initiated : 02/04/22 at 11:59 am Service Date, if different from initiated Date: [] Patient: Isrrael Carrasco a 71 y/o M admitted on 02/01/22 for left hip pain/weakness. Chief Complaint: [] Principal diagnosis: s/p left hip periposthetic fracture Interval history: Mr. Carrasco is a 71 year old M Patient recently left hip replacement on January 17 and on had a fall resulting in a nondisplaced fracture below the stem. He has had difficulty ambulating increasing pain since that time and had a repeat fall yesterday. He is now unable to bear weight as much more pain. Past medical history cleared COPD on 2 L nasal cannula. Work-up in the ED revealed an oblique displaced fracture of left hip. Dr. Payan was contacted. Patient is a smoker about half pack per day but wants to quit now. Sense of medication for parkinsonism or drug-induced extrapyramidal symptoms but not sure why. Reviewed imaging and ekg 02/02 No overnight event or new complaints. Surgery will be till tomorrow because her waiting for surgical equipment. Patient is wheezy a little bit but states she is always wheezy. Debilitated will likely need SNF. Chronic oxygen use. 02/03 Awaiting surgery today. Does seem to have some chronic tachycardia looking at old trends. 02/04: s/p ORIF last night by Dr. Payan. c/o 10/10 left lateral hip pain. No bowel movement yet since surgery. Denies any shortness of breath. Currently on room air. Pending SNF placement once cleared by surgery. Constitutional Vitals: Vital Signs Temp Pulse Resp BP Pulse Ox 37.1 C 96 H 20 140/87 95 02/04/22 11:19 02/04/22 11:19 02/04/22 11:19 02/04/22 11:19 02/04/22 11:19 Period Temp Pulse Resp BP Sys/[place]on Pulse Ox Last 24 Hr 36.1 C-37.2 C 81-123 13-28 76-143/37-132 92-100 Intake and Output 02/03/22 02/04/22 02/04/22 21:59 05:59 13:59 Intake Total 2700 956 Output Total 300 950 Balance 2400 6 Weight 112.173 kg Intake & Output: Intake & Output 02/03/22 02/04/22 02/04/22 21:59 05:59 13:59 Intake Total 2700 956 Output Total 300 950 Balance 2400 6 Weight 112.173 kg Intake: IV 100 656 Lactated Ringers 1,000 ml @ 125 656 mls/hr IV .Q8H [facility] Rx#: [id number] Oral 300 IV - Manual Only 2600 Output: Urine Catheter Amount 100 950 Void Amount 100 Estimated Blood Loss 100 Other: Urine Appearance Clear Clear Uretheral (Chase) Clear Urine Color Dark Yellow Dark Yellow Uretheral (Chase) Dark Yellow General appearance: average body habitus, cooperative and no acute distress Head Head exam: Present atraumatic and normal inspection Eye Eye exam: Present normal appearance ENT ENT exam: Present mucous membranes moist, normal exam and normal external ear e xam Neck Neck exam: Present normal inspection Respiratory Respiratory exam: Present decreased breath sounds and wheezes Cardiovascular Cardiovascular exam: Present normal rate and rhythm GI/Abdominal GI/Abdominal exam: Present normal bowel sounds Additional comments: Chase catheter in place Extremities Exam Extremities exam: Absent full ROM or normal inspection Additional comments: Left lateral hip covered by surgical dressing; tenderness to palpation; active and passive ROMs limited by pain. Back Exam Back exam: Present normal inspection Neurological Exam Neurological exam: Present alert and oriented X3 Skin Skin exam: Present intact and warm OBJ DATA Labs CBC & Chem 7: 02/04/22 05:22 02/04/22 05:22 Labs: Abnormal Lab Results 02/04/22 02/04/22 02/02/22 05:22 05:22 05:16 WBC RBC Hgb 9.4 L Hct 29.9 L RDW MPV Neut % (Auto) Lymph % (Auto) Lymph # (Auto) [place] # (Auto) Absolute Neutrophils Glucose 108 H Alkaline Phosphatase Total Protein 5.8 L Albumin 2.9 L Urine Appearance Urine WBC Urine Mucus 02/02/22 02/01/22 02/01/22 05:16 16:11 16:11 WBC 14.1 H RBC 3.50 L 3.97 L Hgb 10.5 L 11.6 L Hct 33.3 L 36.8 L RDW 14.6 H MPV 11.6 H Neut % (Auto) 80.6 H Lymph % (Auto) 9.3 L Lymph # (Auto) 1.31 L [place] # (Auto) 1.10 H 1.19 H Absolute Neutrophils 11.34 H Glucose 115 H Alkaline Phosphatase 120 H Total Protein Albumin Urine Appearance Urine WBC Urine Mucus 02/01/22 16:10 WBC RBC Hgb Hct RDW MPV Neut % (Auto) Lymph % (Auto) Lymph # (Auto) [place] # (Auto) Absolute Neutrophils Glucose Alkaline Phosphatase Total Protein Albumin Urine Appearance Hazy A Urine WBC 5 H Urine Mucus Mod A Meds: Medications Acetaminophen (Acetaminophen 325 Mg Tablet) 650 mg PO Q6HP PRN; Protocol PRN Reason: Per Pain Protocol/Fever > 101 Hydrocodone Bitart/Acetaminophen (Hydrocodone/Apap 10/325mg Tablet) 1 - 2 tab PO Q4H PRN; Protocol PRN Reason: Pain Last Admin: 02/04/22 08:44 Dose: 2 tab Documented by: Hydrocodone Bitart/Acetaminophen (Hydrocodone/Apap 10/325mg Tablet) 0 tab PO Q4HP PRN; Protocol PRN Reason: Per Pain Protocol Albuterol/Ipratropium (Ipratropium/Albuterol 3 Ml Ampul.Neb) 3 ml NEB Q4HP PRN PRN Reason: Shortness Of Breath Amantadine HCl (Amantadine Hcl 100 Mg Capsule) 100 mg PO BID [facility] Last Admin: 02/04/22 10:21 Dose: 100 mg Documented by: Benztropine Mesylate (Benztropine 1 Mg Tablet) 2 mg PO BID [facility] Last Admin: 02/04/22 08:46 Dose: 2 mg Documented by: Bisacodyl (Bisacodyl 10 Mg Supp.Rect) 10 mg RI Q2-3DAYS PRN PRN Reason: Constipation Calcium Carbonate/Glycine (Calcium Carbonate 500 Mg Tab.Chew) 1,000 mg CHEWED Q4HP PRN PRN Reason: Indigestion Calcium Carbonate/Glycine (Calcium (Oyster Shell) 500 Mg Tablet) 500 mg PO BID [facility] Last Admin: 02/04/22 08:45 Dose: 500 mg Documented by: Carvedilol (Carvedilol 6.25 Mg Tablet) [facility] Last Admin: 02/04/22 08:46 Dose: 6.25 mg Documented by: Cyclobenzaprine HCl (Cyclobenzaprine 10 Mg Tablet) 10 mg PO TIDP PRN PRN Reason: Muscle Spasm Docusate Sodium (Docusate Sodium 100 Mg Capsule) 100 mg PO BID [facility] Last Admin: 02/04/22 08:46 Dose: 100 mg Documented by: Docusate Sodium (Docusate Sodium 100 Mg Capsule) 100 mg PO BID [facility] Last Admin: 02/04/22 08:46 Dose: 100 mg Documented by: Fondaparinux (Fondaparinux Sodium 2.5 Mg/0.5 Ml Syringe) 2.5 mg SQ DAILY [facility] Furosemide (Furosemide 20 Mg Tablet) 40 mg PO DAILY [facility] Last Admin: 02/04/22 08:46 Dose: 40 mg Documented by: Potassium Chloride 40 meq/ (Dextrose) 520 mls @ 130 mls/hr IV UD PRN PRN Reason: Potassium < 3 Magnesium Sulfate (Magnesium Sulfate) 2 gm in 50 mls @ 50 mls/hr IV UD PRN PRN Reason: Magnesium </= 1.6 Lactated Ringer's (Lactated Ringers) 1,000 mls @ 125 mls/hr IV .Q8H [facility] Last Admin: 02/04/22 08:47 Dose: Not Given Documented by: Lorazepam (Lorazepam 1 Mg Tablet) 1 mg PO BIDP PRN PRN Reason: Anxiety Last Admin: 02/04/22 03:45 Dose: 1 mg Documented by: Losartan Potassium (Losartan 50 Mg Tablet) 100 mg PO DAILY [facility] Last Admin: 02/04/22 08:46 Dose: 100 mg Documented by: Magnesium Citrate (Magnesium Citrate 300 Ml Oral.Becky) 300 ml PO DAILYP PRN PRN Reason: Constipation Magnesium Hydroxide (Magnesium Hydroxide 30 Ml Oral.Susp) 30 ml PO BIDP PRN PRN Reason: Constipation Methocarbamol (Methocarbamol 750 Mg Tablet) 750 mg PO Q6HP PRN PRN Reason: Muscle Spasm Last Admin: 02/04/22 08:45 Dose: 750 mg Documented by: Morphine Sulfate (Morphine 4 Mg/Ml Vial) 0 mg IV Q1HP PRN; Protocol PRN Reason: Per Pain Protocol Last Admin: 02/03/22 20:42 Dose: 4 mg Documented by: Olanzapine (Olanzapine 5 Mg Tablet) 7.5 mg PO [facility] Last Admin: 02/03/22 20:42 Dose: 7.5 mg Documented by: Ondansetron HCl (Ondansetron 4 Mg/2 Ml Vial) 4 mg IV Q4HP PRN PRN Reason: Nausea And Vomiting Ondansetron HCl (Ondansetron 4 Mg Odt Tablet) 4 mg SL Q4HP PRN; Protocol PRN Reason: Nausea And Vomiting Budesonide- Formoterol [ Symbicort] 10.2 Gm Hfa Inhaler 2 dose INH BID [facility] Last Admin: 02/04/22 09:04 Dose: Not Given Documented by: Diclofenac Sodium 1 (% Gel) 2 dose TOPICAL TID [facility] Last Admin: 02/04/22 09:04 Dose: Not Given Documented by: Polyethylene Glycol (Polyethylene Glycol 3350 17 Gm Packet) 17 gm PO BID [facility] Last Admin: 02/04/22 08:44 Dose: 17 gm Documented by: Polyethylene Glycol (Polyethylene Glycol 3350 17 Gm Packet) 17 gm PO DAILYP PRN PRN Reason: Constipation Potassium Chloride (Potassium Chloride 10 Meq Tablet) 10 meq PO BIDCC [facility] Last Admin: 02/04/22 08:46 Dose: 10 meq Documented by: Potassium Chloride (Potassium Chloride 20 Meq Tablet) 40 meq PO UD PRN PRN Reason: Potssium is 3-3.5 Potassium Chloride (Potassium Chloride 20 Meq Tablet) 40 meq PO UD PRN PRN Reason: Potassium < 3 Prazosin HCl (Prazosin 1 Mg Capsule) 2 mg PO BID [facility] Last Admin: 02/04/22 08:46 Dose: 2 mg Documented by: Senna (Sennosides 1 Tablet) 1 tab PO BID [facility] Last Admin: 02/04/22 08:44 Dose: 1 tab Documented by: Simvastatin (Simvastatin 20 Mg Tablet) 20 mg PO HS [facility] Last Admin: 02/03/22 20:43 Dose: 20 mg Documented by: Sodium Biphosphate/Sodium Phosphate (Fleets Adult Enema) 1 dose RI Q3-4DAYS PRN PRN Reason: Constipation Sodium Chloride (0.9 % Sodium Chloride 10 Ml Syringe) 10 ml IV Q8 [facility] Last Admin: 02/04/22 04:10 Dose: 10 ml Documented by: Throat Lozenges (Benzocaine/Menthol 1 Lozenge) 1 lozenge PO PRN PRN PRN Reason: Sore Throat Tiotropium [place] (Tiotropium [place] 18 Mcg Inhalant) 18 mcg INH DAILY [facility] Last Admin: 02/04/22 09:04 Dose: Not Given Documented by: A/P Assessment and plan (1) CAD (coronary artery disease): Status: Acute (2) Closed hip fracture: Status: Acute (3) Mixed dyslipidemia: Status: Acute (4) Essential hypertension: Status: Acute (5) ADRIANE on CPAP: Status: Acute (6) COPD (chronic obstructive pulmonary disease): Status: Acute (7) Dementia: Status: Acute Narrative A/P Narrative: Assessment and Plans: 1. Closed left hip fracture: s/p ORIF by orthopedic surgeon Dr. Payan 02/03/22; post operative care as per surgical team including pain control No weight bearing on LLE SCDs+ Fondaparinux Physical therapy Pending SNF placement 2. h/o dementia: Amantadine Need to clarify if [facility] can take care of his physical rehab needs or if we need to make arrangement for physical rehab placement 3. h/o CAD: Coreg Simvastatin 4. Essential HTN: Coreg Lasix Losartan 5. Mixed dyslipidemia: Simvastatin 6. h/o COPD: Supplemental oxygen therapy titrate to achieve spo2>=88%, currently on room air Symbicort Spiriva DuoNEB NEB PRN wheezing 7. ADRIANE on CPAP: Continue CPAP at night while sleeping GI ppx: not currently indicated DVT ppx: SCDs+ Fondaparinux Code status: DNI DNR Prognosis: stable Disposition: inpatient med surg; Need to clarify if [facility] can take care of his physical rehab needs or if we need to make arrangement for physical rehab placement Time Spent With Patient Time: Total time spent is greater than 50% in coordination of care (as documented) at patient's floor/unit and/or counseling patient: Total time spent with greater than 50% in coordination of care (as documented) at patient's floor/unit and/or counseling patient:: 35 - 50 minutes QUALITY VTE Deep Vein Thrombosis/Pulmonary Embolism Present on Admission: No
[2022-02-04] MEDS: FONDAPARINUX SODIUM 2.5 MG/0.5 ML SYRINGE SQ SCH (17:27)
[2022-02-04] MEDS ORDERED: ACETAMINOPHEN 650 MG/65 ML BAG IV PRN (19:10)
[2022-02-04] MEDS: OLANZapine 5 MG TABLET PO SCH (20:34)
[2022-02-04] MEDS: SIMVASTATIN 20 MG TABLET PO SCH (20:34)
[2022-02-04] MEDS: traZODone HCL 50 MG TABLET PO SCH (20:37)
[2022-02-04] MEDS ORDERED: traZODone HCL 50 MG TABLET ONE (20:44)
[2022-02-05] MEDS: HYDROcodone/APAP 10/325MG TABLET PO PRN ×3 (03:42→20:12)
[2022-02-05] MEDS: 0.9 % SODIUM CHLORIDE 10 ML SYRINGE IV SCH ×3 (05:27→23:41)
[2022-02-05 06:27] LABS: Hematocrit 29.4 % (40.1-51.0); Hemoglobin 9.4 g/dL (13.7-17.5)
[2022-02-05] MEDS: BUDESONIDE FORMOTEROL INH SCH ×2 (08:06→20:13)
[2022-02-05] MEDS: POLYETHYLENE GLYCOL 3350 17 GM PACKET PO SCH ×2 (08:06→20:13)
[2022-02-05] MEDS: DICLOFENAC SODIUM 1% TOPICAL SCH ×3 (08:06→20:13)
[2022-02-05] MEDS: SENNOSIDES 1 TABLET PO SCH ×2 (08:07→20:13)
[2022-02-05] MEDS: TIOTROPIUM BROMIDE 18 MCG INHALANT INH SCH (08:07)
--- NOTE | 2022-02-05 08:19 | Orthopedic Progress Note ---
SUBJECTIVE Subjective Patient information: Note initiated : 02/05/22 at 8:15 am Service Date, if different from initiated Date: [] Patient: Isrrael Carrasco 71 y/o M admitted on 02/01/22 for left hip pain/weakness. Chief Complaint: [] Principal diagnosis: s/p left hip periposthetic fracture Interval history: didn't sleep much, no responds but lethargic Constitutional Vitals: Vital Signs Temp Pulse Resp BP Pulse Ox 97.7 F 100 H 22 122/77 94 02/05/22 07:49 02/05/22 07:47 02/05/22 07:47 02/05/22 07:47 02/05/22 07:47 Period Temp Pulse Resp BP Sys/[place] Pulse Ox Last 24 Hr 97.6 F-103.1 F 96-123 99-140/58-87 92-96 Intake and Output 02/04/22 02/05/22 02/05/22 21:59 05:59 13:59 Intake Total 480 115 Output Total 850 600 Balance -370 -485 Weight 248 lb 14.4 oz Intake & Output: Intake & Output 02/04/22 02/05/22 02/05/22 21:59 05:59 13:59 Intake Total 480 115 Output Total 850 600 Balance -370 -485 Weight 248 lb 14.4 oz Intake: IV 65 Oral 480 50 Output: Urine Catheter Amount 850 600 Other: Meal Dinner Percent of Meal Consumed 75% Feeding Ability Total Assistance Urine Appearance Clear Uretheral (Chase) Clear Urine Color Tea Colored Light Jessica Uretheral (Chase) Bright Yellow Stool Size Copious Stool Color Brown Stool Consistency Loose # of times incontinent of 1 Bowels Extremities Exam Extremities exam: Present normal capillary refill, tenderness, Foot pink and warm and neurovascular intact; Absent calf tenderness or full ROM OBJ DATA Labs CBC & Chem 7: 02/05/22 05:19 02/04/22 05:22 Labs: Abnormal Lab Results 02/05/22 02/04/22 02/04/22 05:19 05:22 05:22 Hgb 9.4 L 9.4 L Hct 29.4 L 29.9 L Glucose 108 H Meds: Medications Acetaminophen (Acetaminophen 325 Mg Tablet) 650 mg PO Q6HP PRN; Protocol PRN Reason: Per Pain Protocol/Fever > 101 Hydrocodone Bitart/Acetaminophen (Hydrocodone/Apap 10/325mg Tablet) 0 tab PO Q4HP PRN; Protocol PRN Reason: Per Pain Protocol Last Admin: 02/05/22 03:42 Dose: 2 tab Documented by: Albuterol/Ipratropium (Ipratropium/Albuterol 3 Ml Ampul.Neb) 3 ml NEB Q4HP PRN PRN Reason: Shortness Of Breath Amantadine HCl (Amantadine Hcl 100 Mg Capsule) 100 mg PO BID [facility] Last Admin: 02/04/22 20:34 Dose: 100 mg Documented by: Benztropine Mesylate (Benztropine 1 Mg Tablet) 2 mg PO BID [facility] Last Admin: 02/04/22 20:34 Dose: 2 mg Documented by: Bisacodyl (Bisacodyl 10 Mg Supp.Rect) 10 mg [place] Q2-3DAYS PRN PRN Reason: Constipation Calcium Carbonate/Glycine (Calcium Carbonate 500 Mg Tab.Chew) 1,000 mg CHEWED Q4HP PRN PRN Reason: Indigestion Calcium Carbonate/Glycine (Calcium (Oyster Shell) 500 Mg Tablet) 500 mg PO BID [facility] Last Admin: 02/04/22 20:34 Dose: 500 mg Documented by: Carvedilol (Carvedilol 6.25 Mg Tablet) 6.25 mg PO BIDCC [facility] Last Admin: 02/04/22 17:30 Dose: 6.25 mg Documented by: Cyclobenzaprine HCl (Cyclobenzaprine 10 Mg Tablet) 10 mg PO TIDP PRN PRN Reason: Muscle Spasm Docusate Sodium (Docusate Sodium 100 Mg Capsule) 100 mg PO BID [facility] Last Admin: 02/04/22 20:34 Dose: 100 mg Documented by: Fondaparinux (Fondaparinux Sodium 2.5 Mg/0.5 Ml Syringe) 2.5 mg SQ DAILY [facility] Last Admin: 02/04/22 17:27 Dose: 2.5 mg Documented by: Furosemide (Furosemide 20 Mg Tablet) 40 mg PO DAILY [facility] Last Admin: 02/04/22 08:46 Dose: 40 mg Documented by: Potassium Chloride 40 meq/ (Dextrose) 520 mls @ 130 mls/hr IV UD PRN PRN Reason: Potassium < 3 Magnesium Sulfate (Magnesium Sulfate) 2 gm in 50 mls @ 50 mls/hr IV UD PRN PRN Reason: Magnesium </= 1.6 Acetaminophen (Ofirmev) 650 mg in 65 mls @ 130 mls/hr IV Q6HP PRN; Protocol PRN Reason: PAIN/FEVER > 101 Last Infusion: 02/04/22 23:15 Dose: Infused Documented by: Lorazepam (Lorazepam 1 Mg Tablet) 1 mg PO BIDP PRN PRN Reason: Anxiety Last Admin: 02/04/22 03:45 Dose: 1 mg Documented by: Losartan Potassium (Losartan 50 Mg Tablet) 100 mg PO DAILY [facility] Last Admin: 02/04/22 08:46 Dose: 100 mg Documented by: Magnesium Citrate (Magnesium Citrate 300 Ml Oral.Becky) 300 ml PO DAILYP PRN PRN Reason: Constipation Magnesium Hydroxide (Magnesium Hydroxide 30 Ml Oral.Susp) 30 ml PO BIDP PRN PRN Reason: Constipation Methocarbamol (Methocarbamol 750 Mg Tablet) 750 mg PO Q6HP PRN PRN Reason: Muscle Spasm Last Admin: 02/04/22 17:30 Dose: 750 mg Documented by: Morphine Sulfate (Morphine 4 Mg/Ml Vial) 0 mg IV Q1HP PRN; Protocol PRN Reason: Per Pain Protocol Last Admin: 02/03/22 20:42 Dose: 4 mg Documented by: Olanzapine (Olanzapine 5 Mg Tablet) 7.5 [address] [facility] Last Admin: 02/04/22 20:34 Dose: 7.5 mg Documented by: Ondansetron HCl (Ondansetron 4 Mg/2 Ml Vial) 4 mg IV Q4HP PRN PRN Reason: Nausea And Vomiting Ondansetron HCl (Ondansetron 4 Mg Odt Tablet) 4 mg SL Q4HP PRN; Protocol PRN Reason: Nausea And Vomiting Budesonide- Formoterol [ Symbicort] 10.2 Gm Hfa Inhaler 2 dose INH BID [facility] Last Admin: 02/05/22 08:06 Dose: Not Given Documented by: Diclofenac Sodium 1 (% Gel) 2 dose TOPICAL TID [facility] Last Admin: 02/05/22 08:06 Dose: Not Given Documented by: Polyethylene Glycol (Polyethylene Glycol 3350 17 Gm Packet) 17 gm PO BID [facility] Last Admin: 02/05/22 08:06 Dose: Not Given Documented by: Polyethylene Glycol (Polyethylene Glycol 3350 17 Gm Packet) 17 gm PO DAILYP PRN PRN Reason: Constipation Potassium Chloride (Potassium Chloride 10 Meq Tablet) 10 meq PO BIDCC [facility] Last Admin: 02/04/22 17:30 Dose: 10 meq Documented by: Potassium Chloride (Potassium Chloride 20 Meq Tablet) 40 meq PO UD PRN PRN Reason: Potssium is 3-3.5 Potassium Chloride (Potassium Chloride 20 Meq Tablet) 40 meq PO UD PRN PRN Reason: Potassium < 3 Prazosin HCl (Prazosin 1 Mg Capsule) 2 mg PO BID [facility] Last Admin: 02/04/22 20:34 Dose: 2 mg Documented by: Senna (Sennosides 1 Tablet) 1 tab PO BID [facility] Last Admin: 02/05/22 08:07 Dose: Not Given Documented by: Simvastatin (Simvastatin 20 Mg Tablet) 20 mg [address] [facility] Last Admin: 02/04/22 20:34 Dose: 20 mg Documented by: Sodium Biphosphate/Sodium Phosphate (Fleets Adult Enema) 1 dose [place] Q3-4DAYS PRN PRN Reason: Constipation Sodium Chloride (0.9 % Sodium Chloride 10 Ml Syringe) 10 ml IV Q8 [facility] Last Admin: 02/05/22 05:27 Dose: 10 ml Documented by: Throat Lozenges (Benzocaine/Menthol 1 Lozenge) 1 lozenge PO PRN PRN PRN Reason: Sore Throat Tiotropium [place] (Tiotropium [place] 18 Mcg Inhalant) 18 mcg INH DAILY [facility] Last Admin: 02/05/22 08:07 Dose: Not Given Documented by: Trazodone HCl (Trazodone Hcl 50 Mg Tablet) 50 mg PO [facility] Last Admin: 02/04/22 20:37 Dose: 50 mg Documented by: A/P Assessment and plan (1) Closed hip fracture: Status: Acute (2) Dementia: Status: Acute (3) CAD (coronary artery disease): Status: Acute (4) Tobacco abuse: Status: Acute (5) Schizoaffective disorder: Status: Acute (6) Mixed dyslipidemia: Status: Acute (7) Essential hypertension: Status: Acute (8) Anemia, normocytic normochromic: Status: Acute (9) On home oxygen therapy: Status: Acute (10) COPD (chronic obstructive pulmonary disease): Status: Acute (11) Obesity (BMI 30-39.9): Status: Acute (12) ADRIANE on CPAP: Status: Acute (13) Hx of total knee arthroplasty: Status: Acute Plan pod 2 s/p revision cele with orif for periprosthetic fracture Plan: 50% wb lle pain control dvt prophylaxis d/c planning - needs snf stable ortho, await medical clearance for transfer f/u in office in 2 weeks Time Spent With Patient Time: Total time spent is greater than 50% in coordination of care (as documented) at patient's floor/unit and/or counseling patient:
[2022-02-05] MEDS: FUROSEMIDE 20 MG TABLET PO SCH (08:20)
[2022-02-05] MEDS: FONDAPARINUX SODIUM 2.5 MG/0.5 ML SYRINGE SQ SCH (08:20)
[2022-02-05] MEDS: PRAZOSIN 1 MG CAPSULE PO SCH ×2 (08:20→20:12)
[2022-02-05] MEDS: CALCIUM (OYSTER SHELL) 500 MG TABLET PO SCH ×2 (08:21→20:11)
[2022-02-05] MEDS: LOSARTAN 50 MG TABLET PO SCH (08:21)
[2022-02-05] MEDS: BENZTROPINE 1 MG TABLET PO SCH ×2 (08:21→20:12)
[2022-02-05] MEDS: CARVEDILOL 6.25 MG TABLET PO SCH ×2 (08:21→17:15)
[2022-02-05] MEDS: POTASSIUM CHLORIDE 10 MEQ TABLET PO SCH ×2 (08:21→17:15)
[2022-02-05] MEDS: DOCUSATE SODIUM 100 MG CAPSULE PO SCH ×2 (08:22→20:13)
[2022-02-05] MEDS: AMANTADINE HCL 100 MG CAPSULE PO SCH ×2 (09:06→20:12)
--- NOTE | 2022-02-05 11:33 | Internal Med Progress Note ---
SUBJECTIVE Subjective Patient information: Note initiated : 02/05/22 at 11:27 am Service Date, if different from initiated Date: [] Patient: Isrrael Carrasco a 71 y/o M admitted on 02/01/22 for left hip pain/weakness. Chief Complaint: [] Principal diagnosis: s/p left hip periposthetic fracture Interval history: Mr. Crarasco is a 71 year old M Patient recently left hip replacement on January 17 and on had a fall resulting in a nondisplaced fracture below the stem. He has had difficulty ambulating increasing pain since that time and had a repeat fall yesterday. He is now unable to bear weight as much more pain. Past medical history cleared COPD on 2 L nasal cannula. Work-up in the ED revealed an oblique displaced fracture of left hip. Dr. Payan was contacted. Patient is a smoker about half pack per day but wants to quit now. Sense of medication for parkinsonism or drug-induced extrapyramidal symptoms but not sure why. Reviewed imaging and ekg 02/02 No overnight event or new complaints. Surgery will be till tomorrow because her waiting for surgical equipment. Patient is wheezy a little bit but states she is always wheezy. Debilitated will likely need SNF. Chronic oxygen use. 02/03 Awaiting surgery today. Does seem to have some chronic tachycardia looking at old trends. 02/04: s/p ORIF last night by Dr. Payan. c/o 10/10 left lateral hip pain. No bowel movement yet since surgery. Denies any shortness of breath. Currently on room air. Pending SNF placement once cleared by surgery. 02/05: Fever with Tmax 39.3 last night. Blood and urine cultures no growth to date. Lethargic. Denies left hip pain. Denies any shortness of breath. Currently on room air. Pending SNF placement once clinically cleared. Constitutional Vitals: Vital Signs Temp Pulse Resp BP Pulse Ox 36.9 C 89 20 96/75 92 02/05/22 11:00 02/05/22 10:52 02/05/22 10:52 02/05/22 11:00 02/05/22 11:01 Period Temp Pulse Resp BP Sys/[place] Pulse Ox Last 24 Hr 36.4 C-39.5 C 89-123 20-24 96-132/58-77 92-96 Intake and Output 02/04/22 02/05/22 02/05/22 21:59 05:59 13:59 Intake Total 480 115 200 Output Total 850 600 Balance -370 -485 200 Weight 112.899 kg Intake & Output: Intake & Output 02/04/22 02/05/22 02/05/22 21:59 05:59 13:59 Intake Total 480 115 200 Output Total 850 600 Balance -370 -485 200 Weight 112.899 kg Intake: IV 65 Oral 480 50 200 Output: Urine Catheter Amount 850 600 Other: Meal Dinner Breakfast Percent of Meal Consumed 75% 25% Feeding Ability Total Assistance Assist with Tray Set Up Urine Appearance Clear Uretheral (Chase) Clear Urine Color Tea Colored Light Jessica Uretheral (Chase) Bright Yellow Stool Size Copious Stool Color Brown Stool Consistency Loose # of times incontinent of 1 Bowels General appearance: cooperative and obese Head Head exam: Present atraumatic and normal inspection Eye Eye exam: Present normal appearance ENT ENT exam: Present mucous membranes moist, normal exam and normal external ear exam Neck Neck exam: Present normal inspection Respiratory Respiratory exam: Present rhonchi Cardiovascular Cardiovascular exam: Present normal rate and rhythm GI/Abdominal GI/Abdominal exam: Present normal bowel sounds Additional comments: Chase catheter in place Extremities Exam Extremities exam: Absent full ROM or normal inspection Additional comments: Left lateral hip covered by surgical dressing Back Exam Back exam: Present normal inspection Neurological Exam Neurological exam: Present alert and oriented X3 Skin Skin exam: Present intact and warm OBJ DATA Labs CBC & Chem 7: 02/05/22 05:19 02/04/22 05:22 Labs: Abnormal Lab Results 02/05/22 02/04/22 02/04/22 05:19 05:22 05:22 Hgb 9.4 L 9.4 L Hct 29.4 L 29.9 L Glucose 108 H Meds: Medications Acetaminophen (Acetaminophen 325 Mg Tablet) 650 mg PO Q6HP PRN; Protocol PRN Reason: Per Pain Protocol/Fever > 101 Hydrocodone Bitart/Acetaminophen (Hydrocodone/Apap 10/325mg Tablet) 0 tab PO Q4HP PRN; Protocol PRN Reason: Per Pain Protocol Last Admin: 02/05/22 03:42 Dose: 2 tab Documented by: Albuterol/Ipratropium (Ipratropium/Albuterol 3 Ml Ampul.Neb) 3 ml NEB Q4HP PRN PRN Reason: Shortness Of Breath Amantadine HCl (Amantadine Hcl 100 Mg Capsule) 100 mg PO BID [facility] Last Admin: 02/05/22 09:06 Dose: Not Given Documented by: Benztropine Mesylate (Benztropine 1 Mg Tablet) 2 mg PO BID [facility] Last Admin: 02/05/22 08:21 Dose: 2 mg Documented by: Bisacodyl (Bisacodyl 10 Mg Supp.Rect) 10 mg [place] Q2-3DAYS PRN PRN Reason: Constipation Calcium Carbonate/Glycine (Calcium Carbonate 500 Mg Tab.Chew) 1,000 mg CHEWED Q4HP PRN PRN Reason: Indigestion Calcium Carbonate/Glycine (Calcium (Oyster Shell) 500 Mg Tablet) 500 mg PO BID [facility] Last Admin: 02/05/22 08:21 Dose: 500 mg Documented by: Carvedilol (Carvedilol 6.25 Mg Tablet) [facility] Last Admin: 02/05/22 08:21 Dose: 6.25 mg Documented by: Cyclobenzaprine HCl (Cyclobenzaprine 10 Mg Tablet) 10 mg PO TIDP PRN PRN Reason: Muscle Spasm Docusate Sodium (Docusate Sodium 100 Mg Capsule) 100 mg PO BID [facility] Last Admin: 02/05/22 08:22 Dose: Not Given Documented by: Fondaparinux (Fondaparinux Sodium 2.5 Mg/0.5 Ml Syringe) 2.5 mg SQ DAILY [facility] Last Admin: 02/05/22 08:20 Dose: 2.5 mg Documented by: Furosemide (Furosemide 20 Mg Tablet) 40 mg PO DAILY [facility] Last Admin: 02/05/22 08:20 Dose: 40 mg Documented by: Potassium Chloride 40 meq/ (Dextrose) 520 mls @ 130 mls/hr IV UD PRN PRN Reason: Potassium < 3 Magnesium Sulfate (Magnesium Sulfate) 2 gm in 50 mls @ 50 mls/hr IV UD PRN PRN Reason: Magnesium </= 1.6 Acetaminophen (Ofirmev) 650 mg in 65 mls @ 130 mls/hr IV Q6HP PRN; Protocol PRN Reason: PAIN/FEVER > 101 Last Infusion: 02/04/22 23:15 Dose: Infused Documented by: Piperacillin Sod/Tazobactam (Sod 3.375 gm/ Dextrose) 50 mls @ 100 mls/hr IV Q8H [facility]; Protocol Lorazepam (Lorazepam 1 Mg Tablet) 1 mg PO BIDP PRN PRN Reason: Anxiety Last Admin: 02/04/22 03:45 Dose: 1 mg Documented by: Losartan Potassium (Losartan 50 Mg Tablet) 100 mg PO DAILY [facility] Last Admin: 02/05/22 08:21 Dose: 100 mg Documented by: Magnesium Citrate (Magnesium Citrate 300 Ml Oral.Becky) 300 ml PO DAILYP PRN PRN Reason: Constipation Magnesium Hydroxide (Magnesium Hydroxide 30 Ml Oral.Susp) 30 ml PO BIDP PRN PRN Reason: Constipation Methocarbamol (Methocarbamol 750 Mg Tablet) 750 mg PO Q6HP PRN PRN Reason: Muscle Spasm Last Admin: 02/04/22 17:30 Dose: 750 mg Documented by: Morphine Sulfate (Morphine 4 Mg/Ml Vial) 0 mg IV Q1HP PRN; Protocol PRN Reason: Per Pain Protocol Last Admin: 02/03/22 20:42 Dose: 4 mg Documented by: Olanzapine (Olanzapine 5 Mg Tablet) 7.5 mg PO HS [facility] Last Admin: 02/04/22 20:34 Dose: 7.5 mg Documented by: Ondansetron HCl (Ondansetron 4 Mg/2 Ml Vial) 4 mg IV Q4HP PRN PRN Reason: Nausea And Vomiting Ondansetron HCl (Ondansetron 4 Mg Odt Tablet) 4 mg SL Q4HP PRN; Protocol PRN Reason: Nausea And Vomiting Budesonide- Formoterol [ Symbicort] 10.2 Gm Hfa Inhaler 2 dose INH BID [facility] Last Admin: 02/05/22 08:06 Dose: Not Given Documented by: Diclofenac Sodium 1 (% Gel) 2 dose TOPICAL TID [facility] Last Admin: 02/05/22 08:06 Dose: Not Given Documented by: Polyethylene Glycol (Polyethylene Glycol 3350 17 Gm Packet) 17 gm PO BID [facility] Last Admin: 02/05/22 08:06 Dose: Not Given Documented by: Polyethylene Glycol (Polyethylene Glycol 3350 17 Gm Packet) 17 gm PO DAILYP PRN PRN Reason: Constipation Potassium Chloride (Potassium Chloride 10 Meq Tablet) 10 meq PO BIDCC [facility] Last Admin: 02/05/22 08:21 Dose: 10 meq Documented by: Potassium Chloride (Potassium Chloride 20 Meq Tablet) 40 meq PO UD PRN PRN Reason: Potssium is 3-3.5 Potassium Chloride (Potassium Chloride 20 Meq Tablet) 40 meq PO UD PRN PRN Reason: Potassium < 3 Prazosin HCl (Prazosin 1 Mg Capsule) 2 mg PO BID [facility] Last Admin: 02/05/22 08:20 Dose: 2 mg Documented by: Senna (Sennosides 1 Tablet) 1 tab PO BID [facility] Last Admin: 02/05/22 08:07 Dose: Not Given Documented by: Simvastatin (Simvastatin 20 Mg Tablet) 20 mg PO [facility] Last Admin: 02/04/22 20:34 Dose: 20 mg Documented by: Sodium Biphosphate/Sodium Phosphate (Fleets Adult Enema) 1 dose [place] Q3-4DAYS PRN PRN Reason: Constipation Sodium Chloride (0.9 % Sodium Chloride 10 Ml Syringe) 10 ml IV Q8 [facility] Last Admin: 02/05/22 05:27 Dose: 10 ml Documented by: Throat Lozenges (Benzocaine/Menthol 1 Lozenge) 1 lozenge PO PRN PRN PRN Reason: Sore Throat Tiotropium [place] (Tiotropium [place] 18 Mcg Inhalant) 18 mcg INH DAILY [facility] Last Admin: 02/05/22 08:07 Dose: Not Given Documented by: Trazodone HCl (Trazodone Hcl 50 Mg Tablet) 50 mg PO [facility] Last Admin: 02/04/22 20:37 Dose: 50 mg Documented by: A/P Assessment and plan (1) CAD (coronary artery disease): Status: Acute (2) Closed hip fracture: Status: Acute (3) Mixed dyslipidemia: Status: Acute (4) Essential hypertension: Status: Acute (5) ADRIANE on CPAP: Status: Acute (6) COPD (chronic obstructive pulmonary disease): Status: Acute (7) Dementia: Status: Acute (8) Fever: Status: Acute Narrative A/P Narrative: Assessment and Plans: 1. Closed left hip fracture: s/p ORIF by orthopedic surgeon Dr. Payan 02/03/22; post operative care as per surgical team including pain control No weight bearing on LLE SCDs+ Fondaparinux Physical therapy Pending SNF placement 2. h/o dementia: Amantadine Need to clarify if [facility] can take care of his physical rehab needs or if we need to make arrangement for physical rehab placement 3. h/o CAD: Coreg Simvastatin 4. Essential HTN: Coreg Lasix Losartan 5. Mixed dyslipidemia: Simvastatin 6. h/o COPD: Supplemental oxygen therapy titrate to achieve spo2>=88%, currently on room air Symbicort Spiriva DuoNEB NEB PRN wheezing Chest X ray 7. ADRIANE on CPAP: Continue CPAP at night while sleeping 8. Fever: Blood culture, no growth to date Urine culture, no growth to date Chest X ray Zosyn as empiric antibiotics Tylenol PRN fever GI ppx: not currently indicated DVT ppx: SCDs+ Fondaparinux Code status: DNI DNR Prognosis: guarded Disposition: inpatient med surg; Need to clarify if [facility] can take care of his physical rehab needs or if we need to make arrangement for physical rehab placement Time Spent With Patient Time: Total time spent is greater than 50% in coordination of care (as documented) at patient's floor/unit and/or counseling patient: Total time spent with greater than 50% in coordination of care (as documented) at patient's floor/unit and/or counseling patient:: 35 - 50 minutes QUALITY VTE Deep Vein Thrombosis/Pulmonary Embolism Present on Admission: No
[2022-02-05] MEDS: PIPERACILLIN SODIUM/TAZOBACTAM 3.375 GM in DEXTROSE 5% IN WATER 50 ML IV SCH ×3 (11:54→23:40)
--- NOTE | 2022-02-05 12:45 | XRay Report ---
CLINICAL INFORMATION: Shortness of breath COMPARISON: 12/29/2016 and 02/01/2022 TECHNIQUE: PA and Lateral views FINDINGS: The heart is mildly enlarged, but unchanged. Mild mediastinal widening also stable. Pulmonary vessels are unremarkable. COPD again appreciated with minor scarring in the right infrahilar region again noted. There is minor atelectasis in the lateral left base. Small right pleural effusion also noted. IMPRESSION: Moderate cardiomegaly and COPD. Stable Interpreted and Authenticated by: Andre Cortez 02/05/22
[2022-02-05] MEDS: SIMVASTATIN 20 MG TABLET PO SCH (20:11)
[2022-02-05] MEDS: OLANZapine 5 MG TABLET PO SCH (20:12)
[2022-02-05] MEDS: traZODone HCL 50 MG TABLET PO SCH (20:12)
[2022-02-06] MEDS: 0.9 % SODIUM CHLORIDE 1,000 ML IV SCH ×2 (00:19→18:28)
[2022-02-06] MEDS: PIPERACILLIN SODIUM/TAZOBACTAM 3.375 GM in DEXTROSE 5% IN WATER 50 ML IV SCH ×3 (05:25→17:27)
[2022-02-06] MEDS: 0.9 % SODIUM CHLORIDE 10 ML SYRINGE IV SCH ×3 (05:25→20:19)
[2022-02-06 07:40] LABS: Basophils # (Auto) 0.07 K/mcL (0.00-0.30); Basophils % (Auto) 0.6 % (0.0-2.0); Eosinophils # (Auto) 0.25 K/mcL (0.00-0.70); Eosinophils % (Auto) 2.2 % (0.0-7.0); Hematocrit 29.9 % (40.1-51.0); Hemoglobin 9.3 g/dL (13.7-17.5); Lymphocytes # (Auto) 1.66 K/mcL (1.50-4.80); Lymphocytes % (Auto) 14.3 % (15.5-49.0); Mean Cell Volume 93.1 fL (80.0-100.0); Mean Corpuscular HGB Conc 31.1 g/dL (31.0-36.0); Mean Platelet Volume 10.7 fL (7.4-10.4); Monocytes # (Auto) 1.59 K/mcL (0.10-0.90); Monocytes % (Auto) 13.7 % (1.0-12.0); Neutrophils % (Auto) 69.2 % (38.0-78.0); Platelet Count 376 K/mcL (140-440); RBC 3.21 M/mcL (4.63-6.08); Red Cell Distribution Width 14.3 % (11.5-14.5); WBC 11.6 K/mcL (4.5-11.0)
[2022-02-06 08:13] LABS: ALT/SGPT 32 U/L (<40); AST/SGOT 45 U/L (<40); Albumin 2.4 gm/dL (3.2-5.2); Albumin/Globulin Ratio 0.7 (1.0-2.3); Alkaline Phosphatase 107 U/L (39-117); Bilirubin,Total 0.4 mg/dL (0.1-1.0); Blood Urea Nitrogen 26 mg/dL (8-23); Calcium 10.7 mg/dL (8.6-10.4); Carbon Dioxide 26 mmol/L (22-30); Chloride 97 mmol/L (96-108); Globulin 3.4 gm/dL (2.2-3.7); Glomerular Filtration Rate 60; Glucose 90 mg/dL (70-105)
[2022-02-06] MEDS: FONDAPARINUX SODIUM 2.5 MG/0.5 ML SYRINGE SQ SCH (08:31)
[2022-02-06] MEDS: BENZTROPINE 1 MG TABLET PO SCH ×2 (08:43→20:17)
[2022-02-06] MEDS: CARVEDILOL 6.25 MG TABLET PO SCH ×2 (08:46→17:26)
[2022-02-06] MEDS: FUROSEMIDE 20 MG TABLET PO SCH (08:46)
[2022-02-06] MEDS: POTASSIUM CHLORIDE 10 MEQ TABLET PO SCH ×2 (08:48→17:26)
[2022-02-06] MEDS: PRAZOSIN 1 MG CAPSULE PO SCH ×2 (09:54→20:18)
[2022-02-06] MEDS: DOCUSATE SODIUM 100 MG CAPSULE PO SCH ×2 (09:55→20:17)
[2022-02-06] MEDS: AMANTADINE HCL 100 MG CAPSULE PO SCH ×2 (09:55→20:18)
[2022-02-06] MEDS: TIOTROPIUM BROMIDE 18 MCG INHALANT INH SCH (09:56)
[2022-02-06] MEDS: POLYETHYLENE GLYCOL 3350 17 GM PACKET PO SCH ×2 (09:56→20:16)
[2022-02-06] MEDS: DICLOFENAC SODIUM 1% TOPICAL SCH ×3 (09:56→20:18)
[2022-02-06] MEDS: SENNOSIDES 1 TABLET PO SCH ×2 (09:56→20:17)
[2022-02-06] MEDS: CALCIUM (OYSTER SHELL) 500 MG TABLET PO SCH ×2 (09:56→20:17)
[2022-02-06] MEDS: BUDESONIDE FORMOTEROL INH SCH ×2 (09:56→20:18)
[2022-02-06] MEDS: LOSARTAN 50 MG TABLET PO SCH (09:56)
--- NOTE | 2022-02-06 14:02 | Internal Med Progress Note ---
SUBJECTIVE Subjective Patient information: Note initiated : 02/06/22 at 1:57 pm Service Date, if different from initiated Date: [] Patient: Isrrael Carrasco a 71 y/o M admitted on 02/01/22 for left hip pain/weakness. Chief Complaint: [] Principal diagnosis: s/p left hip periposthetic fracture Interval history: Mr. Carrasco is a 71 year old M Patient recently left hip replacement on January 17 and on had a fall resulting in a nondisplaced fracture below the stem. He has had difficulty ambulating increasing pain since that time and had a repeat fall yesterday. He is now unable to bear weight as much more pain. Past medical history cleared COPD on 2 L nasal cannula. Work-up in the ED revealed an oblique displaced fracture of left hip. Dr. Payan was contacted. Patient is a smoker about half pack per day but wants to quit now. Sense of medication for parkinsonism or drug-induced extrapyramidal symptoms but not sure why. Reviewed imaging and ekg 02/02 No overnight event or new complaints. Surgery will be till tomorrow because her waiting for surgical equipment. Patient is wheezy a little bit but states she is always wheezy. Debilitated will likely need SNF. Chronic oxygen use. 02/03 Awaiting surgery today. Does seem to have some chronic tachycardia looking at old trends. 02/04: s/p ORIF last night by Dr. Payan. c/o 10/10 left lateral hip pain. No bowel movement yet since surgery. Denies any shortness of breath. Currently on room air. Pending SNF placement once cleared by surgery. 02/05: Fever with Tmax 39.3 last night. Blood and urine cultures no growth to date. Lethargic. Denies left hip pain. Denies any shortness of breath. Currently on room air. Pending SNF placement once clinically cleared. 02/06: Fever with Tmax 38.0 this morning. Blood and urine cultures no growth to date. Way more awake and alert this morning compared to yesterday. Denies left hip pain. Good appetite. Denies any shortness of breath. Currently on room air. Denies any fever or chills. Pending SNF placement once clinically cleared. Constitutional Vitals: Vital Signs Temp Pulse Resp BP Pulse Ox 36.1 C 100 H 18 110/74 92 02/06/22 12:09 02/06/22 12:09 02/06/22 12:09 02/06/22 12:09 02/06/22 12:09 Period Temp Pulse Resp BP Sys/[place] Pulse Ox Last 24 Hr 36.1 C-38.1 C 95-106 16-20 84-110/55-74 91-99 Intake and Output 02/05/22 02/06/22 02/06/22 21:59 05:59 13:59 Intake Total 50 530 100 Output Total 400 375 250 Balance -350 155 -150 Weight 111.039 kg Intake & Output: Intake & Output 02/05/22 02/06/22 02/06/22 21:59 05:59 13:59 Intake Total 50 530 100 Output Total 400 375 250 Balance -350 155 -150 Weight 111.039 kg Intake: IV 50 50 100 Zosyn 3.375 gm In Dextrose 5% 50 50 100 in Water 50 ml @ 100 mls/hr IV Q6H [facility] Rx#:[id number] Oral 480 Output: Urine Catheter Amount 400 375 250 Other: Meal Breakfast Percent of Meal Consumed 75% Feeding Ability Assist with Tray Set Up Urine Appearance Clear Clear Uretheral (Chase) Clear Urine Color Dark Yellow Light Jessica Bright Yellow Uretheral (Chase) Light Jessica Urine Odor Normal Stool Size Small Stool Color Brown Stool Consistency Loose # of times incontinent of 1 Bowels General appearance: cooperative, no acute distress and obese Head Head exam: Present atraumatic and normal inspection Eye Eye exam: Present normal appearance ENT ENT exam: Present mucous membranes moist, normal exam and normal external ear exam Neck Neck exam: Present normal inspection Respiratory Respiratory exam: Present normal respiratory exam Cardiovascular Cardiovascular exam: Present normal rate and rhythm GI/Abdominal GI/Abdominal exam: Present normal bowel sounds Additional comments: Chase catheter in place Extremities Exam Extremities exam: Absent full ROM or normal inspection Additional comments: Left lateral hip covered by surgical dressing, no tenderness to palpation. Back Exam Back exam: Present normal inspection Neurological Exam Neurological exam: Present alert; Absent oriented X3 Additional comments: oriented X2 to person and place only Skin Skin exam: Present intact and warm OBJ DATA Labs CBC & Chem 7: 02/06/22 05:29 02/06/22 05:29 Labs: Abnormal Lab Results 02/06/22 02/06/22 02/05/22 05:29 05:29 05:19 WBC 11.6 H RBC 3.21 L Hgb 9.3 L 9.4 L Hct 29.9 L 29.4 L MPV 10.7 H Lymph % (Auto) 14.3 L [place] % (Auto) 13.7 H [place] # (Auto) 1.59 H Absolute Neutrophils 8.01 H BUN 26 H Glucose Calcium 10.7 H AST 45 H Total Protein 5.8 L Albumin 2.4 L Albumin/Globulin Ratio 0.7 L 02/04/22 02/04/22 05:22 05:22 WBC RBC Hgb 9.4 L Hct 29.9 L MPV Lymph % (Auto) [place] % (Auto) [place] # (Auto) Absolute Neutrophils BUN Glucose 108 H Calcium AST Total Protein Albumin Albumin/Globulin Ratio Meds: Medications Acetaminophen (Acetaminophen 325 Mg Tablet) 650 mg PO Q6HP PRN; Protocol PRN Reason: Per Pain Protocol/Fever > 101 Hydrocodone Bitart/Acetaminophen (Hydrocodone/Apap 10/325mg Tablet) 0 tab PO Q4HP PRN; Protocol PRN Reason: Per Pain Protocol Last Admin: 02/05/22 20:12 Dose: 2 tab Documented by: Albuterol/Ipratropium (Ipratropium/Albuterol 3 Ml Ampul.Neb) 3 ml NEB Q4HP PRN PRN Reason: Shortness Of Breath Amantadine HCl (Amantadine Hcl 100 Mg Capsule) 100 mg PO BID [facility] Last Admin: 02/06/22 09:55 Dose: 100 mg Documented by: Benztropine Mesylate (Benztropine 1 Mg Tablet) 2 mg PO BID [facility] Last Admin: 02/06/22 08:43 Dose: 2 mg Documented by: Bisacodyl (Bisacodyl 10 Mg Supp.Rect) 10 mg MN Q2-3DAYS PRN PRN Reason: Constipation Calcium Carbonate/Glycine (Calcium Carbonate 500 Mg Tab.Chew) 1,000 mg CHEWED Q4HP PRN PRN Reason: Indigestion Calcium Carbonate/Glycine (Calcium (Oyster [place]) 500 Mg Tablet) 500 mg PO BID [facility] Last Admin: 02/06/22 09:56 Dose: Not Given Documented by: Carvedilol (Carvedilol 6.25 Mg Tablet) [facility] Last Admin: 02/06/22 08:46 Dose: 6.25 mg Documented by: Cyclobenzaprine HCl (Cyclobenzaprine 10 Mg Tablet) 10 mg PO TIDP PRN PRN Reason: Muscle Spasm Docusate Sodium (Docusate Sodium 100 Mg Capsule) 100 mg PO BID [facility] Last Admin: 02/06/22 09:55 Dose: Not Given Documented by: Fondaparinux (Fondaparinux Sodium 2.5 Mg/0.5 Ml Syringe) 2.5 mg SQ DAILY [facility] Last Admin: 02/05/22 08:20 Dose: 2.5 mg Documented by: Furosemide (Furosemide 20 Mg Tablet) 40 mg PO DAILY [facility] Last Admin: 02/06/22 08:46 Dose: 40 mg Documented by: Potassium Chloride 40 meq/ (Dextrose) 520 mls @ 130 mls/hr IV UD PRN PRN Reason: Potassium < 3 Magnesium Sulfate (Magnesium Sulfate) 2 gm in 50 mls @ 50 mls/hr IV UD PRN PRN Reason: Magnesium </= 1.6 Acetaminophen (Ofirmev) 650 mg in 65 mls @ 130 mls/hr IV Q6HP PRN; Protocol PRN Reason: PAIN/FEVER > 101 Last Infusion: 02/04/22 23:15 Dose: Infused Documented by: Piperacillin Sod/Tazobactam (Sod 3.375 gm/ Dextrose) 50 mls @ 100 mls/hr IV Q6H [facility]; Protocol Last Infusion: 02/06/22 12:45 Dose: Infused Documented by: Sodium Chloride (Sodium Chloride 0.9%) 1,000 mls @ 75 mls/hr IV .[id number] [facility] Last Admin: 02/06/22 00:19 Dose: 75 mls/hr Documented by: Lorazepam (Lorazepam 1 Mg Tablet) 1 mg PO BIDP PRN PRN Reason: Anxiety Last Admin: 02/04/22 03:45 Dose: 1 mg Documented by: Magnesium Citrate (Magnesium Citrate 300 Ml Oral.Becky) 300 ml PO DAILYP PRN PRN Reason: Constipation Magnesium Hydroxide (Magnesium Hydroxide 30 Ml Oral.Susp) 30 ml PO BIDP PRN PRN Reason: Constipation Methocarbamol (Methocarbamol 750 Mg Tablet) 750 mg PO Q6HP PRN PRN Reason: Muscle Spasm Last Admin: 02/04/22 17:30 Dose: 750 mg Documented by: Morphine Sulfate (Morphine 4 Mg/Ml Vial) 0 mg IV Q1HP PRN; Protocol PRN Reason: Per Pain Protocol Last Admin: 02/03/22 20:42 Dose: 4 mg Documented by: Olanzapine (Olanzapine 5 Mg Tablet) 7.5 mg PO [facility] Last Admin: 02/05/22 20:12 Dose: 7.5 mg Documented by: Ondansetron HCl (Ondansetron 4 Mg/2 Ml Vial) 4 mg IV Q4HP PRN PRN Reason: Nausea And Vomiting Ondansetron HCl (Ondansetron 4 Mg Odt Tablet) 4 mg SL Q4HP PRN; Protocol PRN Reason: Nausea And Vomiting Budesonide- Formoterol [ Symbicort] 10.2 Gm Hfa Inhaler 2 dose INH BID [facility] Last Admin: 02/06/22 09:56 Dose: Not Given Documented by: Diclofenac Sodium 1 (% Gel) 2 dose TOPICAL TID [facility] Last Admin: 02/06/22 09:56 Dose: Not Given Documented by: Polyethylene Glycol (Polyethylene Glycol 3350 17 Gm Packet) 17 gm PO BID [facility] Last Admin: 02/06/22 09:56 Dose: Not Given Documented by: Polyethylene Glycol (Polyethylene Glycol 3350 17 Gm Packet) 17 gm PO DAILYP PRN PRN Reason: Constipation Potassium Chloride (Potassium Chloride 10 Meq Tablet) [facility] Last Admin: 02/06/22 08:48 Dose: 10 meq Documented by: Potassium Chloride (Potassium Chloride 20 Meq Tablet) 40 meq PO UD PRN PRN Reason: Potssium is 3-3.5 Potassium Chloride (Potassium Chloride 20 Meq Tablet) 40 meq PO UD PRN PRN Reason: Potassium < 3 Prazosin HCl (Prazosin 1 Mg Capsule) 2 mg PO BID [facility] Last Admin: 02/06/22 09:54 Dose: 2 mg Documented by: Senna (Sennosides 1 Tablet) 1 tab PO BID [facility] Last Admin: 02/06/22 09:56 Dose: Not Given Documented by: Simvastatin (Simvastatin 20 Mg Tablet) 20 mg PO [facility] Last Admin: 02/05/22 20:11 Dose: 20 mg Documented by: Sodium Biphosphate/Sodium Phosphate (Fleets Adult Enema) 1 dose [place] Q3-4DAYS PRN PRN Reason: Constipation Sodium Chloride (0.9 % Sodium Chloride 10 Ml Syringe) 10 ml IV Q8 [facility] Last Admin: 02/06/22 05:25 Dose: Not Given Documented by: Throat Lozenges (Benzocaine/Menthol 1 Lozenge) 1 lozenge PO PRN PRN PRN Reason: Sore Throat Tiotropium [place] (Tiotropium [place] 18 Mcg Inhalant) 18 mcg INH DAILY [facility] Last Admin: 02/06/22 09:56 Dose: Not Given Documented by: Trazodone HCl (Trazodone Hcl 50 Mg Tablet) 50 mg PO HS [facility] Last Admin: 02/05/22 20:12 Dose: 50 mg Documented by: A/P Assessment and plan (1) CAD (coronary artery disease): Status: Acute (2) Closed hip fracture: Status: Acute (3) Mixed dyslipidemia: Status: Acute (4) Essential hypertension: Status: Acute (5) ADRIANE on CPAP: Status: Acute (6) COPD (chronic obstructive pulmonary disease): Status: Acute (7) Dementia: Status: Acute (8) Fever: Status: Acute Narrative A/P Narrative: Assessment and Plans: 1. Closed left hip fracture: s/p ORIF by orthopedic surgeon Dr. Payan 02/03/22; post operative care as per surgical team including pain control No weight bearing on LLE SCDs+ Fondaparinux Physical therapy Pending SNF placement 2. h/o dementia: Amantadine Need to clarify if [facility] can take care of his physical rehab needs or if we need to make arrangement for physical rehab placement 3. h/o CAD: Continue Coreg Continue Simvastatin 4. Essential HTN: Currently borderline hypotensive Continue Coreg Continue Lasix Hold Losartan 5. Mixed dyslipidemia: Continue Simvastatin 6. h/o COPD: Supplemental oxygen therapy titrate to achieve spo2>=88%, currently on room air Symbicort Spiriva DuoNEB NEB PRN wheezing Chest X ray 7. ADRIANE on CPAP: Continue CPAP at night while sleeping 8. Fever: Blood culture, no growth to date Urine culture, no growth to date Chest X ray showing moderate cardiomyopathy and stable COPD Zosyn as empiric antibiotics Tylenol PRN fever GI ppx: not currently indicated DVT ppx: SCDs+ Fondaparinux Code status: DNI DNR Prognosis: guarded Disposition: inpatient med surg; pending SNF placement Time Spent With Patient Time: Total time spent is greater than 50% in coordination of care (as documented) at patient's floor/unit and/or counseling patient: Total time spent with greater than 50% in coordination of care (as documented) at patient's floor/unit and/or counseling patient:: 25 - 35 minutes QUALITY VTE Deep Vein Thrombosis/Pulmonary Embolism Present on Admission: No
[2022-02-06] MEDS: ACETAMINOPHEN 325 MG TABLET PO PRN (15:57)
[2022-02-06] MEDS: LORazepam 1 MG TABLET PO PRN (20:17)
[2022-02-06] MEDS: OLANZapine 5 MG TABLET PO SCH (20:17)
[2022-02-06] MEDS: HYDROcodone/APAP 10/325MG TABLET PO PRN (20:17)
[2022-02-06] MEDS: traZODone HCL 50 MG TABLET PO SCH (20:18)
[2022-02-06] MEDS: SIMVASTATIN 20 MG TABLET PO SCH (20:18)
[2022-02-07] MEDS: PIPERACILLIN SODIUM/TAZOBACTAM 3.375 GM in DEXTROSE 5% IN WATER 50 ML IV SCH ×4 (02:55→18:01)
[2022-02-07 07:06] LABS: Basophils # (Auto) 0.06 K/mcL (0.00-0.30); Basophils % (Auto) 0.4 % (0.0-2.0); Eosinophils # (Auto) 0.03 K/mcL (0.00-0.70); Eosinophils % (Auto) 0.2 % (0.0-7.0); Hematocrit 31.8 % (40.1-51.0); Hemoglobin 10.2 g/dL (13.7-17.5); Lymphocytes # (Auto) 1.33 K/mcL (1.50-4.80); Lymphocytes % (Auto) 9.6 % (15.5-49.0); Mean Cell Volume 90.9 fL (80.0-100.0); Mean Corpuscular HGB Conc 32.1 g/dL (31.0-36.0); Mean Platelet Volume 10.5 fL (7.4-10.4); Monocytes # (Auto) 1.35 K/mcL (0.10-0.90); Monocytes % (Auto) 9.7 % (1.0-12.0); Neutrophils % (Auto) 80.1 % (38.0-78.0); Platelet Count 492 K/mcL (140-440); WBC 13.9 K/mcL (4.5-11.0)
[2022-02-07] MEDS: 0.9 % SODIUM CHLORIDE 10 ML SYRINGE IV SCH ×3 (07:10→22:19)
[2022-02-07 07:27] LABS: ALT/SGPT 116 U/L (<40); AST/SGOT 136 U/L (<40); Albumin/Globulin Ratio 0.8 (1.0-2.3); Alkaline Phosphatase 125 U/L (39-117); Bilirubin,Total 0.5 mg/dL (0.1-1.0); Blood Urea Nitrogen 26 mg/dL (8-23); Calcium 10.8 mg/dL (8.6-10.4); Carbon Dioxide 27 mmol/L (22-30); Chloride 93 mmol/L (96-108); Globulin 3.6 gm/dL (2.2-3.7); Glomerular Filtration Rate 67; Glucose 135 mg/dL (70-105)
[2022-02-07] MEDS: CARVEDILOL 6.25 MG TABLET PO SCH ×2 (08:15→18:01)
[2022-02-07] MEDS: POTASSIUM CHLORIDE 10 MEQ TABLET PO SCH ×2 (08:16→18:01)
[2022-02-07] MEDS: PRAZOSIN 1 MG CAPSULE PO SCH ×2 (09:22→21:48)
[2022-02-07] MEDS: BENZTROPINE 1 MG TABLET PO SCH ×2 (09:22→21:48)
[2022-02-07] MEDS: AMANTADINE HCL 100 MG CAPSULE PO SCH ×2 (09:22→23:10)
[2022-02-07] MEDS: FUROSEMIDE 20 MG TABLET PO SCH (09:22)
[2022-02-07] MEDS: DOCUSATE SODIUM 100 MG CAPSULE PO SCH ×2 (09:22→21:48)
[2022-02-07] MEDS: TIOTROPIUM BROMIDE 18 MCG INHALANT INH SCH (09:23)
[2022-02-07] MEDS: CALCIUM (OYSTER SHELL) 500 MG TABLET PO SCH ×2 (09:23→21:48)
[2022-02-07] MEDS: BUDESONIDE FORMOTEROL INH SCH ×2 (09:23→21:48)
[2022-02-07] MEDS: POLYETHYLENE GLYCOL 3350 17 GM PACKET PO SCH ×2 (09:23→21:48)
[2022-02-07] MEDS: DICLOFENAC SODIUM 1% TOPICAL SCH ×3 (09:23→21:48)
[2022-02-07] MEDS: SENNOSIDES 1 TABLET PO SCH ×2 (09:23→21:49)
[2022-02-07] MEDS: FONDAPARINUX SODIUM 2.5 MG/0.5 ML SYRINGE SQ SCH (09:49)
--- NOTE | 2022-02-07 12:40 | Internal Med Progress Note ---
SUBJECTIVE Subjective Patient information: Note initiated : 02/07/22 at 12:35 pm Service Date, if different from initiated Date: [] Patient: Isrrael Carrasco a 71 y/o M admitted on 02/01/22 for left hip pain/weakness. Chief Complaint: [] Principal diagnosis: s/p left hip periposthetic fracture Interval history: Mr. Carrasco is a 71 year old M Patient recently left hip replacement on January 17 and on had a fall resulting in a nondisplaced fracture below the stem. He has had difficulty ambulating increasing pain since that time and had a repeat fall yesterday. He is now unable to bear weight as much more pain. Past medical history cleared COPD on 2 L nasal cannula. Work-up in the ED revealed an oblique displaced fracture of left hip. Dr. Payan was contacted. Patient is a smoker about half pack per day but wants to quit now. Sense of medication for parkinsonism or drug-induced extrapyramidal symptoms but not sure why. Reviewed imaging and ekg 02/02 No overnight event or new complaints. Surgery will be till tomorrow because her waiting for surgical equipment. Patient is wheezy a little bit but states she is always wheezy. Debilitated will likely need SNF. Chronic oxygen use. 02/03 Awaiting surgery today. Does seem to have some chronic tachycardia looking at old trends. 02/04: s/p ORIF last night by Dr. Payan. c/o 10/10 left lateral hip pain. No bowel movement yet since surgery. Denies any shortness of breath. Currently on room air. Pending SNF placement once cleared by surgery. 02/05: Fever with Tmax 39.3 last night. Blood and urine cultures no growth to date. Lethargic. Denies left hip pain. Denies any shortness of breath. Currently on room air. Pending SNF placement once clinically cleared. 02/06: Fever with Tmax 38.0 this morning. Blood and urine cultures no growth to date. Way more awake and alert this morning compared to yesterday. Denies left hip pain. Good appetite. Denies any shortness of breath. Currently on room air. Denies any fever or chills. Pending SNF placement once clinically cleared. 02/07: Coffee ground emesis this morning. Stable H/H. Afebrile overnight. Denies any subjective fever or chills. Denies any epigastric abdominal pain. Denies lightheadedness. Denies shortness of breath. Denies hip pain. NPO. Consult general surgeon Dr. Castorena for potential EGD. Hold anticoagulants. Continue Zosyn as empiric antibiotics for recent leukocytosis and fever. All cultures no growth to date. Constitutional Vitals: Vital Signs Temp Pulse Resp BP Pulse Ox 36.1 C 106 H 20 108/71 92 02/07/22 08:00 02/07/22 08:00 02/07/22 08:00 02/07/22 08:00 02/07/22 11:00 Period Temp Pulse Resp BP Sys/[place] Pulse Ox Last 24 Hr 36.1 C-37.1 C 106-110 18-20 99-122/57-86 92-94 Intake and Output 02/06/22 02/07/22 02/07/22 21:59 05:59 13:59 Intake Total 1050 450 Output Total 351 1 Balance 699 449 Weight 111.669 kg Intake & Output: Intake & Output 02/06/22 02/07/22 02/07/22 21:59 05:59 13:59 Intake Total 1050 450 Output Total 351 1 Balance 699 449 Weight 111.669 kg Intake: IV 50 50 Zosyn 3.375 gm In Dextrose 5% 50 50 in Water 50 ml @ 100 mls/hr IV Q6H [facility] Rx#:[id number] Oral 1000 400 Output: Urine Catheter Amount 350 Uretheral (Chase) 100 # of times incontinent of urine 1 1 Other: Meal Lunch Percent of Meal Consumed Refused Feeding Ability Assist with Tray Set Up Urine Appearance Clear Urine Color Straw Urine Odor Normal Uretheral (Chase) Normal Stool Size Moderate Stool Color Brown Stool Consistency Loose # Unmeasured Emesis 1 # of times incontinent of 1 Bowels General appearance: cooperative, no acute distress and obese Head Head exam: Present atraumatic and normal inspection Eye Eye exam: Present normal appearance ENT ENT exam: Present mucous membranes moist, normal exam and normal external ear exam Neck Neck exam: Present normal inspection Respiratory Respiratory exam: Present rhonchi Cardiovascular Cardiovascular exam: Present normal rate and rhythm GI/Abdominal GI/Abdominal exam: Present normal bowel sounds Extremities Exam Extremities exam: Absent full ROM or normal inspection Additional comments: Left lateral hip covered by surgical dressing Back Exam Back exam: Present normal inspection Neurological Exam Neurological exam: Present alert and oriented X3 Skin Skin exam: Present intact and warm OBJ DATA Labs CBC & Chem 7: 02/07/22 05:15 02/07/22 05:15 Labs: Abnormal Lab Results 02/07/22 02/07/22 02/06/22 05:15 05:15 05:29 WBC 13.9 H RBC 3.50 L Hgb 10.2 L Hct 31.8 L Plt Count 492 H MPV 10.5 H Neut % (Auto) 80.1 H Lymph % (Auto) 9.6 L Leon % (Auto) Lymph # (Auto) 1.33 L Leon # (Auto) 1.35 H Absolute Neutrophils 11.09 H Sodium 132 L Chloride 93 L BUN 26 H 26 H Glucose 135 H Calcium 10.8 H 10.7 H AST 136 H 45 H ALT 116 H Alkaline Phosphatase 125 H Total Protein 5.8 L Albumin 3.0 L 2.4 L Albumin/Globulin Ratio 0.8 L 0.7 L 02/06/22 02/05/22 05:29 05:19 WBC 11.6 H RBC 3.21 L Hgb 9.3 L 9.4 L Hct 29.9 L 29.4 L Plt Count MPV 10.7 H Neut % (Auto) Lymph % (Auto) 14.3 L Leon % (Auto) 13.7 H Lymph # (Auto) Leon # (Auto) 1.59 H Absolute Neutrophils 8.01 H Sodium Chloride BUN Glucose Calcium AST ALT Alkaline Phosphatase Total Protein Albumin Albumin/Globulin Ratio Meds: Medications Acetaminophen (Acetaminophen 325 Mg Tablet) 650 mg PO Q6HP PRN; Protocol PRN Reason: Per Pain Protocol/Fever > 101 Last Admin: 02/06/22 15:57 Dose: 650 mg Documented by: Hydrocodone Bitart/Acetaminophen (Hydrocodone/Apap 10/325mg Tablet) 0 tab PO Q4HP PRN; Protocol PRN Reason: Per Pain Protocol Last Admin: 02/06/22 20:17 Dose: 2 tab Documented by: Albuterol/Ipratropium (Ipratropium/Albuterol 3 Ml Ampul.Neb) 3 ml NEB Q4HP PRN PRN Reason: Shortness Of Breath Amantadine HCl (Amantadine Hcl 100 Mg Capsule) 100 mg PO BID SUE Last Admin: 02/07/22 09:22 Dose: Not Given Documented by: Benztropine Mesylate (Benztropine 1 Mg Tablet) 2 mg PO BID [facility] Last Admin: 02/07/22 09:22 Dose: Not Given Documented by: Bisacodyl (Bisacodyl 10 Mg Supp.Rect) 10 mg NV Q2-3DAYS PRN PRN Reason: Constipation Calcium Carbonate/Glycine (Calcium Carbonate 500 Mg Tab.Chew) 1,000 mg CHEWED Q4HP PRN PRN Reason: Indigestion Calcium Carbonate/Glycine (Calcium ([place]yster [place]) 500 Mg Tablet) 500 mg PO BID [facility] Last Admin: 02/07/22 09:23 Dose: Not Given Documented by: Carvedilol (Carvedilol 6.25 Mg Tablet) [facility] Last Admin: 02/07/22 08:15 Dose: Not Given Documented by: Cyclobenzaprine HCl (Cyclobenzaprine 10 Mg Tablet) 10 mg PO TIDP PRN PRN Reason: Muscle Spasm Docusate Sodium (Docusate Sodium 100 Mg Capsule) 100 mg PO BID [facility] Last Admin: 02/07/22 09:22 Dose: Not Given Documented by: Furosemide (Furosemide 20 Mg Tablet) 40 mg PO DAILY [facility] Last Admin: 02/07/22 09:22 Dose: Not Given Documented by: Potassium Chloride 40 meq/ (Dextrose) 520 mls @ 130 mls/hr IV UD PRN PRN Reason: Potassium < 3 Magnesium Sulfate (Magnesium Sulfate) 2 gm in 50 mls @ 50 mls/hr IV UD PRN PRN Reason: Magnesium </= 1.6 Acetaminophen (Ofirmev) 650 mg in 65 mls @ 130 mls/hr IV Q6HP PRN; Protocol PRN Reason: PAIN/FEVER > 101 Last Infusion: 02/04/22 23:15 Dose: Infused Documented by: Piperacillin Sod/Tazobactam (Sod 3.375 gm/ Dextrose) 50 mls @ 100 mls/hr IV Q6H [facility]; Protocol Last Admin: 02/07/22 07:18 Dose: 100 mls/hr Documented by: Lorazepam (Lorazepam 1 Mg Tablet) 1 mg PO BIDP PRN PRN Reason: Anxiety Last Admin: 02/06/22 20:17 Dose: 1 mg Documented by: Magnesium Citrate (Magnesium Citrate 300 Ml Oral.Becky) 300 ml PO DAILYP PRN PRN Reason: Constipation Magnesium Hydroxide (Magnesium Hydroxide 30 Ml Oral.Susp) 30 ml PO BIDP PRN PRN Reason: Constipation Methocarbamol (Methocarbamol 750 Mg Tablet) 750 mg PO Q6HP PRN PRN Reason: Muscle Spasm Last Admin: 02/04/22 17:30 Dose: 750 mg Documented by: Morphine Sulfate (Morphine 4 Mg/Ml Vial) 0 mg IV Q1HP PRN; Protocol PRN Reason: Per Pain Protocol Last Admin: 02/03/22 20:42 Dose: 4 mg Documented by: Olanzapine (Olanzapine 5 Mg Tablet) 7.5 mg PO [facility] Last Admin: 02/06/22 20:17 Dose: 7.5 mg Documented by: Ondansetron HCl (Ondansetron 4 Mg/2 Ml Vial) 4 mg IV Q4HP PRN PRN Reason: Nausea And Vomiting Last Admin: 02/07/22 08:11 Dose: 4 mg Documented by: Ondansetron HCl (Ondansetron 4 Mg Odt Tablet) 4 mg SL Q4HP PRN; Protocol PRN Reason: Nausea And Vomiting Budesonide- Formoterol [ Symbicort] 10.2 Gm Hfa Inhaler 2 dose INH BID [facility] Last Admin: 02/07/22 09:23 Dose: Not Given Documented by: Diclofenac Sodium 1 (% Gel) 2 dose TOPICAL TID [facility] Last Admin: 02/07/22 09:23 Dose: Not Given Documented by: Polyethylene Glycol (Polyethylene Glycol 3350 17 Gm Packet) 17 gm PO BID [facility] Last Admin: 02/07/22 09:23 Dose: Not Given Documented by: Polyethylene Glycol (Polyethylene Glycol 3350 17 Gm Packet) 17 gm PO DAILYP PRN PRN Reason: Constipation Potassium Chloride (Potassium Chloride 10 Meq Tablet) [facility] Last Admin: 02/07/22 08:16 Dose: Not Given Documented by: Potassium Chloride (Potassium Chloride 20 Meq Tablet) 40 meq PO UD PRN PRN Reason: Potssium is 3-3.5 Potassium Chloride (Potassium Chloride 20 Meq Tablet) 40 meq PO UD PRN PRN Reason: Potassium < 3 Prazosin HCl (Prazosin 1 Mg Capsule) 2 mg PO BID [facility] Last Admin: 02/07/22 09:22 Dose: Not Given Documented by: Senna (Sennosides 1 Tablet) 1 tab PO BID [facility] Last Admin: 02/07/22 09:23 Dose: Not Given Documented by: Simvastatin (Simvastatin 20 Mg Tablet) 20 mg PO [facility] Last Admin: 02/06/22 20:18 Dose: 20 mg Documented by: Sodium Biphosphate/Sodium Phosphate (Fleets Adult Enema) 1 dose NV Q3-4DAYS PRN PRN Reason: Constipation Sodium Chloride (0.9 % Sodium Chloride 10 Ml Syringe) 10 ml IV Q8 [facility] Last Admin: 02/07/22 07:10 Dose: 10 ml Documented by: Throat Lozenges (Benzocaine/Menthol 1 Lozenge) 1 lozenge PO PRN PRN PRN Reason: Sore Throat Tiotropium [place] (Tiotropium [place] 18 Mcg Inhalant) 18 mcg INH DAILY [facility] Last Admin: 02/07/22 09:23 Dose: Not Given Documented by: Trazodone HCl (Trazodone Hcl 50 Mg Tablet) 50 mg PO [facility] Last Admin: 02/06/22 20:18 Dose: 50 mg Documented by: A/P Assessment and plan (1) CAD (coronary artery disease): Status: Acute (2) Closed hip fracture: Status: Acute (3) Mixed dyslipidemia: Status: Acute (4) Essential hypertension: Status: Acute (5) ADRIANE on CPAP: Status: Acute (6) COPD (chronic obstructive pulmonary disease): Status: Acute (7) Dementia: Status: Acute (8) Fever: Status: Acute (9) Upper GI bleeding: Status: Acute Narrative A/P Narrative: Assessment and Plans: 1. Closed left hip fracture: s/p ORIF by orthopedic surgeon Dr. Payan 02/03/22; post operative care as per surgical team including pain control No weight bearing on LLE SCDs; hold Fondaparinux for GI bleeding Physical therapy Pending SNF placement 2. h/o dementia: Amantadine Need to clarify if [facility] Alcantar can take care of his physical rehab needs or if we need to make arrangement for physical rehab placement 3. h/o CAD: Continue Coreg Continue Simvastatin 4. Essential HTN: Currently borderline hypotensive Continue Coreg Continue Lasix Hold Losartan 5. Mixed dyslipidemia: Continue Simvastatin 6. h/o COPD: Supplemental oxygen therapy titrate to achieve spo2>=88%, currently on room air Symbicort Spiriva DuoNEB NEB PRN wheezing Chest X ray 7. ADRIANE on CPAP: Continue CPAP at night while sleeping 8. Fever: Blood culture, no growth to date Urine culture, no growth to date Chest X ray showing moderate cardiomyopathy and stable COPD Zosyn as empiric antibiotics Tylenol PRN fever 9. Upper GI bleeding: NPO Consult general surgeon Dr. Castorena for potential EGD Serial H/H check Protonix IV BID hold Fondaparinux for now GI ppx: Protonix IV DVT ppx: SCDs; hold Fondaparinux Code status: DNI DNR Prognosis: guarded Disposition: inpatient med surg; pending SNF placement Time Spent With Patient Time: Total time spent is greater than 50% in coordination of care (as documented) at patient's floor/unit and/or counseling patient: Total time spent with greater than 50% in coordination of care (as documented) at patient's floor/unit and/or counseling patient:: 35 - 50 minutes QUALITY VTE Deep Vein Thrombosis/Pulmonary Embolism Present on Admission: No
--- NOTE | 2022-02-07 13:38 | General Surgery Consult Note ---
HPI Data of Consult Patient: new to practice Consult date: 02/07/22 Primary Care Provider: Andre Myrick PA-C Consult Narrative Patient Information: Note initiated : 02/07/22 at 1:35 pm Service Date, if different from initiated Date: [] Patient: Isrrael Carrasco 71 y/o M admitted on 02/01/22 for left hip pain/weakness. This gentleman was admitted approximately 3 weeks ago status post hip fracture, underwent open fixation, 2 weeks later he fell and broke femur at the shaft. He was readmitted, underwent open reduction internal fixation. He has been in the hospital since doing well in a nonweightbearing status. This morning his nurse came into the room and there was what appeared to be coffee- ground emesis on the floor. Patient does not recall having emesis, he denies any complaints at this time although he is a very poor historian. The nurses did a guaiac on the emesis on the floor which was positive and I was asked to see the patient to perform an EGD to rule out an upper GI bleed. Chief Complaint: [] Reason for consult: Coffee-ground emesis cc:: CC: Justin Craft Review of Systems ROS unobtainable: due to mental status PFSH PFSH All Active Problems Upper GI bleeding (Acute) Fever (Acute) Dementia (Acute) CAD (coronary artery disease) (Acute) Tobacco abuse (Acute) Schizoaffective disorder (Acute) Mixed dyslipidemia (Acute) Essential hypertension (Acute) Anemia, normocytic normochromic (Acute) On home oxygen therapy (Acute) COPD (chronic obstructive pulmonary disease) (Acute) Obesity (BMI 30-39.9) (Acute) ADRIANE on CPAP (Acute) Hx of total knee arthroplasty (Acute) Closed hip fracture (Acute) MEDS/ALLERGIES Home Medications and Allergies Home Medications Medication Instructions Recorded Confirmed Type albuterol sulfate 90 mcg/actuation 2 puff INH Q4HP PRN 12/06/17 02/01/22 History aerosol inhaler (Ventolin HFA) benztropine 1 mg tablet 2 mg PO BID 12/06/17 02/01/22 History budesonide-formoterol HFA 160 2 puff INH BID 12/06/17 02/01/22 History mcg-4.5 mcg/actuation aerosol inhaler (Symbicort) calcium carbonate 200 mg calcium 1,000 mg CHEWED Q4HP PRN 12/06/17 02/01/22 History (500 mg) chewable tablet calcium carbonate 600 mg calcium 600 mg PO BID 12/06/17 02/01/22 History (1,500 mg) tablet cholecalciferol (vitamin D3) 25 2,000 unit PO DAILY 12/06/17 02/01/22 History mcg (1,000 unit) tablet (Vitamin D3) clotrimazole 1 % topical cream 1 dose TOPICAL BIDP PRN 12/06/17 02/01/22 History cyclobenzaprine 10 mg tablet 10 mg PO TIDP PRN 12/06/17 02/01/22 History fluticasone propionate 50 1 spray NS DAILY 12/06/17 02/01/22 History mcg/actuation nasal spray,suspension furosemide 20 mg tablet 40 mg PO DAILY 12/06/17 02/01/22 History losartan 50 mg tablet (Cozaar) 100 mg PO DAILY 12/06/17 02/01/22 History olanzapine 5 mg tablet 7.5 mg PO HS 12/06/17 02/01/22 History paliperidone palmitate 234 mg/1.5 234 mg IM QMONTH 12/06/17 02/01/22 History mL intramuscular syringe (Invega Sustenna) potassium chloride 10 mEq 10 meq PO BIDCC 12/06/17 02/01/22 History tablet,extended release prazosin 2 mg capsule 2 mg PO BID 12/06/17 02/01/22 History simvastatin 20 mg tablet 20 mg PO HS 12/06/17 02/01/22 History tiotropium bromide 18 mcg capsule 18 mcg INH DAILY 12/06/17 02/01/22 History with inhalation device (Spiriva with HandiHaler) acetaminophen 325 mg tablet 650 mg PO Q6H PRN 01/10/22 02/01/22 History amantadine HCl 100 mg capsule 100 mg PO BID 01/10/22 02/01/22 History carvedilol 6.25 mg tablet 6.25 mg PO BIDCC 01/10/22 02/01/22 History diclofenac sodium 1 % topical gel 2 g TOPICAL TID 01/10/22 02/01/22 History ipratropium 0.5 mg-albuterol 3 mg 3 ml INHALATION Q4H PRN 01/10/22 02/01/22 History (2.5 mg base)/3 mL nebulization soln lorazepam 1 mg tablet 1 mg PO BIDP PRN 01/10/22 02/01/22 History magnesium citrate 300 ml PO DAILYP PRN 01/10/22 02/01/22 History polyethylene glycol 3350 17 gram 17 g PO BID 01/10/22 02/01/22 History oral powder packet (Miralax) sennosides 8.6 mg tablet (Senna 8.6 mg PO BID 01/10/22 02/01/22 History Lax) aspirin 81 mg tablet,delayed 81 mg PO BID #60 tab 01/17/22 02/01/22 Rx release (Aspirin Low Dose) hydrocodone 10 mg-acetaminophen 1 - 2 tab PO Q4H PRN #60 tab 01/17/22 02/01/22 Rx 325 mg tablet hydrocodone 10 mg-acetaminophen 1 - 2 tab PO Q4H PRN #60 tab 02/03/22 Rx 325 mg tablet Allergies Allergy/AdvReac Type Severity Reaction Status Date / Time Beta-Blockers Allergy Unknown Unknown Verified 01/10/22 13:30 (Beta-Adrenergic Bloc codeine AdvReac Mild Vomiting Verified 01/10/22 13:30 tramadol AdvReac Mild Confusion Verified 01/10/22 13:30 Physical Examination Vital Signs Vital signs: Temp Pulse Resp BP Pulse Ox 99.1 F H 100 H 20 125/77 93 02/07/22 12:00 02/07/22 12:00 02/07/22 12:00 02/07/22 12:00 02/07/22 12:00 General physical appearance General physical exam: well developed, well nourished and no distress Eyes Eye exam: PERRL and normal ocular movement ENT ENT exam: normal pinna, normal nares, normal mucosa, no hearing loss and no congestion Head Head exam IM: Present atraumatic and normocephalic Neck Neck exam: no masses, no bruits, trachea midline, no lymphadenopathy and no venous distension Cardiovascular Cardiovascular exam IM: Present normal rate and rhythm Respiratory Respiratory exam: normal expansion, normal respiratory effort, clear to percussion and clear to auscultation Abdomen Abdomen: Present soft, non tender and bowel sounds Hernia: Present none Genitourinary Genitourinary (Male): Present normal penis with no external lesions Rectum Rectum: Present normal sphincter tone, no hemorrhoids, no tenderness, no masses and no bleeding Integumentary Integumentary: Present no rash, no growths and no abnormal pigmentation Neurologic Neurologic: Present normal coordination and normal sensation Musculoskeletal Musculoskeletal: Present normal gait and normal posture Psychiatric Psychiatric: Present oriented to time, oriented to person, oriented to place, speech is normal and memory intact Results Labs Result diagrams: 02/07/22 05:15 02/07/22 05:15 Labs: Abnormal lab results 02/07/22 02/07/22 Range/Units 05:15 05:15 WBC 13.9 H (4.5-11.0) K/mcL RBC 3.50 L (4.63-6.08) M/mcL Hgb 10.2 L (13.7-17.5) g/dL Hct 31.8 L (40.1-51.0) % Plt Count 492 H (140-440) K/mcL MPV 10.5 H (7.4-10.4) fL Neut % (Auto) 80.1 H (38.0-78.0) % Lymph % (Auto) 9.6 L (15.5-49.0) % Lymph # (Auto) 1.33 L (1.50-4.80) K/mcL [place] # (Auto) 1.35 H (0.10-0.90) K/mcL Absolute Neutrophils 11.09 H (1.80-8.00) K/mcL Sodium 132 L (133-145) mmol/L Chloride 93 L (96-108) mmol/L BUN 26 H (8-23) mg/dL Glucose 135 H (70-105) mg/dL Calcium 10.8 H (8.6-10.4) mg/dL AST 136 H (<40) U/L ALT 116 H (<40) U/L Alkaline Phosphatase 125 H (39-117) U/L Albumin 3.0 L (3.2-5.2) gm/dL Albumin/Globulin Ratio 0.8 L (1.0-2.3) Diabetes panel 02/07/22 Range/Units 05:15 Sodium 132 L (133-145) mmol/L Potassium 3.7 (3.3-5.1) mmol/L Chloride 93 L (96-108) mmol/L Carbon Dioxide 27 (22-30) mmol/L BUN 26 H (8-23) mg/dL Creatinine 1.1 (0.7-1.2) mg/dL Glucose 135 H (70-105) mg/dL Calcium 10.8 H (8.6-10.4) mg/dL AST 136 H (<40) U/L ALT 116 H (<40) U/L Alkaline Phosphatase 125 H (39-117) U/L Total Protein 6.6 (5.9-8.4) gm/dL Albumin 3.0 L (3.2-5.2) gm/dL Calcium panel 02/07/22 Range/Units 05:15 Calcium 10.8 H (8.6-10.4) mg/dL Albumin 3.0 L (3.2-5.2) gm/dL Pituitary panel 02/07/22 Range/Units 05:15 Sodium 132 L (133-145) mmol/L Potassium 3.7 (3.3-5.1) mmol/L Chloride 93 L (96-108) mmol/L Carbon Dioxide 27 (22-30) mmol/L BUN 26 H (8-23) mg/dL Creatinine 1.1 (0.7-1.2) mg/dL Glucose 135 H (70-105) mg/dL Calcium 10.8 H (8.6-10.4) mg/dL Adrenal panel 02/07/22 Range/Units 05:15 Sodium 132 L (133-145) mmol/L Potassium 3.7 (3.3-5.1) mmol/L Chloride 93 L (96-108) mmol/L Carbon Dioxide 27 (22-30) mmol/L BUN 26 H (8-23) mg/dL Creatinine 1.1 (0.7-1.2) mg/dL Glucose 135 H (70-105) mg/dL Calcium 10.8 H (8.6-10.4) mg/dL Total Bilirubin 0.5 (0.1-1.0) mg/dL AST 136 H (<40) U/L ALT 116 H (<40) U/L Alkaline Phosphatase 125 H (39-117) U/L Total Protein 6.6 (5.9-8.4) gm/dL Albumin 3.0 L (3.2-5.2) gm/dL All other labs normal. A/P Narrative Plan of Treatment: This is a pleasant 71-year-old gentleman who is on chronic anticoagulant who had possible hematemesis. I was asked to see the patient for EGD. Risk, benefits, alternatives discussed with the patient at length. Plan EGD in a.m. Time Spent With Patient Time: Total time spent is greater than 50% in coordination of care (as documented) at patient's floor/unit and/or counseling patient:
[2022-02-07] MEDS: PANTOPRAZOLE 40 MG VIAL IV SCH (17:37)
[2022-02-07 19:04] LABS: Hematocrit 32.2 % (40.1-51.0); Hemoglobin 10.2 g/dL (13.7-17.5)
--- NOTE | 2022-02-07 20:30 | Orthopedic Progress Note ---
SUBJECTIVE Subjective Patient information: Note initiated : 02/07/22 at 8:20 pm Service Date, if different from initiated Date: [] Patient: Isrrael Carrasco 71 y/o M admitted on 02/01/22 for left hip pain/weakness. Chief Complaint: [Left hip pain ] Principal diagnosis: s/p left hip periposthetic fracture Pertinent ROS: 10 points reviewed and is negative except where mentioned Constitutional Vitals: Vital Signs Temp Pulse Resp BP Pulse Ox 98.0 F 106 H 20 127/77 92 02/07/22 16:00 02/07/22 16:00 02/07/22 16:00 02/07/22 16:00 02/07/22 16:00 Period Temp Pulse Resp BP Sys/Bur[place]on Pulse Ox Last 24 Hr 97.0 F-99.1 F 100-110 18-20 99-127/57-86 92-93 Intake and Output 02/07/22 02/07/22 02/07/22 05:59 13:59 21:59 Intake Total 450 100 170 Output Total 1 1 1 Balance 449 99 169 Weight 246 lb 3 oz Patient Weight 02/08/22 05:59 Weight 246 lb 3 oz Intake & Output: Intake & Output 02/07/22 02/07/22 02/07/22 05:59 13:59 21:59 Intake Total 450 100 170 Output Total 1 1 1 Balance 449 99 169 Weight 246 lb 3 oz Intake: IV 50 100 50 Zosyn 3.375 gm In Dextrose 5% 50 100 50 in Water 50 ml @ 100 mls/hr IV Q6H [facility] Rx#:[id number] Oral 400 120 Output: # of times incontinent of urine 1 1 1 Other: Stool Size Moderate Stool Color Brown Stool Consistency Loose # Unmeasured Emesis 1 # of times incontinent of 1 Bowels OBJ DATA Labs CBC & Chem 7: 02/07/22 18:17 02/07/22 05:15 Labs: Abnormal Lab Results 02/07/22 02/07/22 02/07/22 18:17 05:15 05:15 WBC 13.9 H RBC 3.50 L Hgb 10.2 L 10.2 L Hct 32.2 L 31.8 L Plt Count 492 H MPV 10.5 H Neut % (Auto) 80.1 H Lymph % (Auto) 9.6 L [place] % (Auto) Lymph # (Auto) 1.33 L [place] # (Auto) 1.35 H Absolute Neutrophils 11.09 H Sodium 132 L Chloride 93 L BUN 26 H Glucose 135 H Calcium 10.8 H AST 136 H ALT 116 H Alkaline Phosphatase 125 H Total Protein Albumin 3.0 L Albumin/Globulin Ratio 0.8 L 02/06/22 02/06/22 02/05/22 05:29 05:29 05:19 WBC 11.6 H RBC 3.21 L Hgb 9.3 L 9.4 L Hct 29.9 L 29.4 L Plt Count MPV 10.7 H Neut % (Auto) Lymph % (Auto) 14.3 L [place] % (Auto) 13.7 H Lymph # (Auto) [place] # (Auto) 1.59 H Absolute Neutrophils 8.01 H Sodium Chloride BUN 26 H Glucose Calcium 10.7 H AST 45 H ALT Alkaline Phosphatase Total Protein 5.8 L Albumin 2.4 L Albumin/Globulin Ratio 0.7 L Meds: Medications Acetaminophen (Acetaminophen 325 Mg Tablet) 650 mg PO Q6HP PRN; Protocol PRN Reason: Per Pain Protocol/Fever > 101 Last Admin: 02/06/22 15:57 Dose: 650 mg Documented by: Hydrocodone Bitart/Acetaminophen (Hydrocodone/Apap 10/325mg Tablet) 0 tab PO Q4HP PRN; Protocol PRN Reason: Per Pain Protocol Last Admin: 02/06/22 20:17 Dose: 2 tab Documented by: Albuterol/Ipratropium (Ipratropium/Albuterol 3 Ml Ampul.Neb) 3 ml NEB Q4HP PRN PRN Reason: Shortness Of Breath Amantadine HCl (Amantadine Hcl 100 Mg Capsule) 100 mg PO BID [facility] Last Admin: 02/07/22 09:22 Dose: Not Given Documented by: Benztropine Mesylate (Benztropine 1 Mg Tablet) 2 mg PO BID [facility] Last Admin: 02/07/22 09:22 Dose: Not Given Documented by: Bisacodyl (Bisacodyl 10 Mg Supp.Rect) 10 mg [place] Q2-3DAYS PRN PRN Reason: Constipation Calcium Carbonate/Glycine (Calcium Carbonate 500 Mg Tab.Chew) 1,000 mg CHEWED Q4HP PRN PRN Reason: Indigestion Calcium Carbonate/Glycine (Calcium (Oyster Shell) 500 Mg Tablet) 500 mg PO BID [facility] Last Admin: 02/07/22 09:23 Dose: Not Given Documented by: Carvedilol (Car[facility]ilol 6.25 Mg Tablet) [facility] Last Admin: 02/07/22 18:01 Dose: Not Given Documented by: Cyclobenzaprine HCl (Cyclobenzaprine 10 Mg Tablet) 10 mg PO TIDP PRN PRN Reason: Muscle Spasm Docusate Sodium (Docusate Sodium 100 Mg Capsule) 100 mg PO BID [facility] Last Admin: 02/07/22 09:22 Dose: Not Given Documented by: Furosemide (Furosemide 20 Mg Tablet) 40 mg PO DAILY [facility] Last Admin: 02/07/22 09:22 Dose: Not Given Documented by: Potassium Chloride 40 meq/ (Dextrose) 520 mls @ 130 mls/hr IV UD PRN PRN Reason: Potassium < 3 Magnesium Sulfate (Magnesium Sulfate) 2 gm in 50 mls @ 50 mls/hr IV UD PRN PRN Reason: Magnesium </= 1.6 Acetaminophen (Ofirmev) 650 mg in 65 mls @ 130 mls/hr IV Q6HP PRN; Protocol PRN Reason: PAIN/FEVER > 101 Last Infusion: 02/04/22 23:15 Dose: Infused Documented by: Piperacillin Sod/Tazobactam (Sod 3.375 gm/ Dextrose) 50 mls @ 100 mls/hr IV Q6H [facility]; Protocol Last Infusion: 02/07/22 18:39 Dose: Infused Documented by: Lorazepam (Lorazepam 1 Mg Tablet) 1 mg PO BIDP PRN PRN Reason: Anxiety Last Admin: 02/06/22 20:17 Dose: 1 mg Documented by: Magnesium Citrate (Magnesium Citrate 300 Ml Oral.Becky) 300 ml PO DAILYP PRN PRN Reason: Constipation Magnesium Hydroxide (Magnesium Hydroxide 30 Ml Oral.Susp) 30 ml PO BIDP PRN PRN Reason: Constipation Methocarbamol (Methocarbamol 750 Mg Tablet) 750 mg PO Q6HP PRN PRN Reason: Muscle Spasm Last Admin: 02/04/22 17:30 Dose: 750 mg Documented by: Morphine Sulfate (Morphine 4 Mg/Ml Vial) 0 mg IV Q1HP PRN; Protocol PRN Reason: Per Pain Protocol Last Admin: 02/03/22 20:42 Dose: 4 mg Documented by: Olanzapine (Olanzapine 5 Mg Tablet) 7.5 mg PO [facility] Last Admin: 02/06/22 20:17 Dose: 7.5 mg Documented by: Ondansetron HCl (Ondansetron 4 Mg/2 Ml Vial) 4 mg IV Q4HP PRN PRN Reason: Nausea And Vomiting Last Admin: 02/07/22 08:11 Dose: 4 mg Documented by: Ondansetron HCl (Ondansetron 4 Mg Odt Tablet) 4 mg SL Q4HP PRN; Protocol PRN Reason: Nausea And Vomiting Pantoprazole Sodium (Pantoprazole 40 Mg Vial) 40 mg IV BIDAC [facility] Last Admin: 02/07/22 17:37 Dose: 40 mg Documented by: Budesonide- Formoterol [ Symbicort] 10.2 Gm Hfa Inhaler 2 dose INH BID [facility] Last Admin: 02/07/22 09:23 Dose: Not Given Documented by: Diclofenac Sodium 1 (% Gel) 2 dose TOPICAL TID [facility] Last Admin: 02/07/22 17:13 Dose: Not Given Documented by: Polyethylene Glycol (Polyethylene Glycol 3350 17 Gm Packet) 17 gm PO BID [facility] Last Admin: 02/07/22 09:23 Dose: Not Given Documented by: Polyethylene Glycol (Polyethylene Glycol 3350 17 Gm Packet) 17 gm PO DAILYP PRN PRN Reason: Constipation Potassium Chloride (Potassium Chloride 10 Meq Tablet) 10 meq PO BIDCC [facility] Last Admin: 02/07/22 18:01 Dose: Not Given Documented by: Potassium Chloride (Potassium Chloride 20 Meq Tablet) 40 meq PO UD PRN PRN Reason: Potssium is 3-3.5 Potassium Chloride (Potassium Chloride 20 Meq Tablet) 40 meq PO UD PRN PRN Reason: Potassium < 3 Prazosin HCl (Prazosin 1 Mg Capsule) 2 mg PO BID [facility] Last Admin: 02/07/22 09:22 Dose: Not Given Documented by: Senna (Sennosides 1 Tablet) 1 tab PO BID [facility] Last Admin: 02/07/22 09:23 Dose: Not Given Documented by: Simvastatin (Simvastatin 20 Mg Tablet) 20 mg PO [facility] Last Admin: 02/06/22 20:18 Dose: 20 mg Documented by: Sodium Biphosphate/Sodium Phosphate (Fleets Adult Enema) 1 dose [place] Q3-4DAYS PRN PRN Reason: Constipation Sodium Chloride (0.9 % Sodium Chloride 10 Ml Syringe) 10 ml IV Q8 [facility] Last Admin: 02/07/22 12:52 Dose: 10 ml Documented by: Throat Lozenges (Benzocaine/Menthol 1 Lozenge) 1 lozenge PO PRN PRN PRN Reason: Sore Throat Tiotropium [place] (Tiotropium [place] 18 Mcg Inhalant) 18 mcg INH DAILY [facility] Last Admin: 02/07/22 09:23 Dose: Not Given Documented by: Trazodone HCl (Trazodone Hcl 50 Mg Tablet) 50 mg PO HSP PRN PRN Reason: Insomnia A/P Narrative A/P Narrative: Seen and examined this afternoon awake alert conversant. Much more lucid this afternoon and oriented 3. Has no complaints of pain at the left hip under current regimen. Silver Dressing at left hip area clean dry and intact, both lower extremities are warm well perfused and neurovascularly intact. Will maintain nonweightbearing status on left lower extremity. Continue pain control, PT/OT Recent notes indicate general surgery consult for EGD due to Hemoccult-positive coffee-ground emesis, fever and leukocytosis. Stable from orthopedic standpoint, will defer final disposition to attending hospitalist. Plan is for discharge to SNF in 1-2 days with follow-up at [facility] in 10-14 days status post discharge. Time Spent With Patient Time: Total time spent is greater than 50% in coordination of care (as documented) at patient's floor/unit and/or counseling patient:
[2022-02-07] MEDS: traZODone HCL 50 MG TABLET PO PRN (22:18)
[2022-02-07] MEDS: SIMVASTATIN 20 MG TABLET PO SCH (22:18)
[2022-02-07] MEDS: OLANZapine 5 MG TABLET PO SCH (22:18)
[2022-02-08] MEDS: PIPERACILLIN SODIUM/TAZOBACTAM 3.375 GM in DEXTROSE 5% IN WATER 50 ML IV SCH ×4 (00:26→17:44)
[2022-02-08] MEDS: 0.9 % SODIUM CHLORIDE 10 ML SYRINGE IV SCH ×4 (05:40→21:49)
[2022-02-08 06:42] LABS: Basophils # (Auto) 0.05 K/mcL (0.00-0.30); Basophils % (Auto) 0.3 % (0.0-2.0); Eosinophils # (Auto) 0.02 K/mcL (0.00-0.70); Eosinophils % (Auto) 0.1 % (0.0-7.0); Hematocrit 30.4 % (40.1-51.0); Hemoglobin 9.5 g/dL (13.7-17.5); Lymphocytes # (Auto) 1.26 K/mcL (1.50-4.80); Lymphocytes % (Auto) 6.8 % (15.5-49.0); Mean Cell Volume 91.6 fL (80.0-100.0); Mean Corpuscular HGB Conc 31.3 g/dL (31.0-36.0); Mean Platelet Volume 10.4 fL (7.4-10.4); Monocytes % (Auto) 9.7 % (1.0-12.0); Neutrophils % (Auto) 83.1 % (38.0-78.0); Platelet Count 489 K/mcL (140-440); RBC 3.32 M/mcL (4.63-6.08); Red Cell Distribution Width 14.1 % (11.5-14.5); WBC 18.6 K/mcL (4.5-11.0)
[2022-02-08] MEDS ORDERED: PROPOFOL 200 MG/20 ML VIAL IV SCH (06:45)
[2022-02-08] MEDS ORDERED: MIDAZOLAM 2 MG/2 ML VIAL IV SCH (06:45)
[2022-02-08 07:06] LABS: ALT/SGPT 217 U/L (<40); AST/SGOT 241 U/L (<40); Albumin 2.7 gm/dL (3.2-5.2); Albumin/Globulin Ratio 0.7 (1.0-2.3); Alkaline Phosphatase 126 U/L (39-117); Bilirubin,Total 0.4 mg/dL (0.1-1.0); Blood Urea Nitrogen 35 mg/dL (8-23); Calcium 10.7 mg/dL (8.6-10.4); Carbon Dioxide 27 mmol/L (22-30); Chloride 95 mmol/L (96-108); Globulin 3.7 gm/dL (2.2-3.7); Glomerular Filtration Rate 67; Glucose 118 mg/dL (70-105)
--- NOTE | 2022-02-08 07:33 | EGD Procedure Note ---
EGD Procedure Notes Procedure Information Patient information: Note initiated : 02/08/22 at 7:28 am Service Date: 02/01/22 Patient: sIrrael Carrasco 71 y/o M admitted on 02/01/22 for left hip pain/weakness. Pre-op diagnosis general: GI bleed Post-Op Diagnosis general: Gastritis, esophagitis Procedure: Esophagogastroduodenoscopy Procedure Narrative: After risk benefits and alternatives to the procedure were discussed with the patient at length he verbalized understanding and desire to continue with the procedure. Patient was taken to endoscopy. Surgical timeout was taken to verify patient and procedure being performed sedation was administered with 1 mg of Versed and 100 mcg of propofol. An adult gastroscope was entered and advanced under direct vision into the [place] portion of the duodenum. The antrum was fully inspected, the scope was retroflexed in the stomach. Full examination revealed gastroparesis, mild gastritis, normal duodenum, mild esophagitis. The GE junction was at 35 cm and the esophagus was normal on full exam. EBL none. Patient tolerated procedure well. Assessment: Gastroparesis, gastritis, esophagitis.
[2022-02-08] MEDS: PANTOPRAZOLE 40 MG VIAL IV SCH ×2 (07:50→17:16)
[2022-02-08] MEDS: BENZTROPINE 1 MG TABLET PO SCH ×2 (10:15→21:47)
[2022-02-08] MEDS: SENNOSIDES 1 TABLET PO SCH ×2 (10:15→21:48)
[2022-02-08] MEDS: DOCUSATE SODIUM 100 MG CAPSULE PO SCH ×2 (10:16→21:48)
[2022-02-08] MEDS: POTASSIUM CHLORIDE 10 MEQ TABLET PO SCH ×2 (10:16→17:16)
[2022-02-08] MEDS: POLYETHYLENE GLYCOL 3350 17 GM PACKET PO SCH ×2 (10:17→21:48)
[2022-02-08] MEDS: CALCIUM (OYSTER SHELL) 500 MG TABLET PO SCH ×2 (10:17→21:47)
[2022-02-08] MEDS: CARVEDILOL 6.25 MG TABLET PO SCH ×3 (10:19→17:16)
[2022-02-08] MEDS: FUROSEMIDE 20 MG TABLET PO SCH (10:20)
[2022-02-08] MEDS: PRAZOSIN 1 MG CAPSULE PO SCH ×2 (10:22→21:46)
[2022-02-08] MEDS: AMANTADINE HCL 100 MG CAPSULE PO SCH ×2 (10:43→21:46)
[2022-02-08] MEDS: BUDESONIDE FORMOTEROL INH SCH ×2 (10:57→21:48)
[2022-02-08] MEDS: DICLOFENAC SODIUM 1% TOPICAL SCH ×3 (10:57→21:48)
[2022-02-08] MEDS: TIOTROPIUM BROMIDE 18 MCG INHALANT INH SCH (10:58)
--- NOTE | 2022-02-08 14:13 | Internal Med Progress Note ---
SUBJECTIVE Subjective Patient information: Note initiated : 02/08/22 at 2:08 pm Service Date, if different from initiated Date: [] Patient: Isrrael Carrasco a 71 y/o M admitted on 02/01/22 for left hip pain/weakness. Chief Complaint: [] Principal diagnosis: s/p left hip periposthetic fracture Interval history: Mr. Carrasco is a 71 year old M Patient recently left hip replacement on January 17 and on had a fall resulting in a nondisplaced fracture below the stem. He has had difficulty ambulating increasing pain since that time and had a repeat fall yesterday. He is now unable to bear weight as much more pain. Past medical history cleared COPD on 2 L nasal cannula. Work-up in the ED revealed an oblique displaced fracture of left hip. Dr. Payan was contacted. Patient is a smoker about half pack per day but wants to quit now. Sense of medication for parkinsonism or drug-induced extrapyramidal symptoms but not sure why. Reviewed imaging and ekg 02/02 No overnight event or new complaints. Surgery will be till tomorrow because her waiting for surgical equipment. Patient is wheezy a little bit but states she is always wheezy. Debilitated will likely need SNF. Chronic oxygen use. 02/03 Awaiting surgery today. Does seem to have some chronic tachycardia looking at old trends. 02/04: s/p ORIF last night by Dr. Payan. c/o 10/10 left lateral hip pain. No bowel movement yet since surgery. Denies any shortness of breath. Currently on room air. Pending SNF placement once cleared by surgery. 02/05: Fever with Tmax 39.3 last night. Blood and urine cultures no growth to date. Lethargic. Denies left hip pain. Denies any shortness of breath. Currently on room air. Pending SNF placement once clinically cleared. 02/06: Fever with Tmax 38.0 this morning. Blood and urine cultures no growth to date. Way more awake and alert this morning compared to yesterday. Denies left hip pain. Good appetite. Denies any shortness of breath. Currently on room air. Denies any fever or chills. Pending SNF placement once clinically cleared. 02/07: Coffee ground emesis this morning. Stable H/H. Afebrile overnight. Denies any subjective fever or chills. Denies any epigastric abdominal pain. Denies lightheadedness. Denies shortness of breath. Denies hip pain. NPO. Consult general surgeon Dr. Castorena for potential EGD. Hold anticoagulants. Continue Zosyn as empiric antibiotics for recent leukocytosis and fever. All cultures no growth to date. 02/08: Status post EGD by Dr. Castorena general surgeons on February 07, 2022, which found gastroparesis, gastritis, and esophagitis. H&H stable this morning relatively yesterday. Leukocytosis with WBC 18.6. No more episode of hematemesis or bloody or black stool. Resumed dysphagia diet. Denies any subjective fever or chills. Denies any epigastric abdominal pain. Denies lightheadedness. Denies shortness of breath. Denies hip pain. Continue Zosyn as empiric antibiotics for recent leukocytosis and fever. All cultures no growth to date. Constitutional Vitals: Vital Signs Temp Pulse Resp BP Pulse Ox 37.4 C H 119 H 24 H 116/69 91 02/08/22 11:33 02/08/22 11:33 02/08/22 11:33 02/08/22 11:33 02/08/22 11:33 Period Temp Pulse Resp BP Sys/[place] Pulse Ox Last 24 Hr 36.1 C-37.6 C 99-126 18-26 83-142/53-91 90-100 Intake and Output 02/08/22 02/08/22 02/08/22 05:59 13:59 21:59 Intake Total 800 170 Output Total 3 Balance 800 167 Intake & Output: Intake & Output 02/08/22 02/08/22 02/08/22 05:59 13:59 21:59 Intake Total 800 170 Output Total 3 Balance 800 167 Intake: IV 50 50 Zosyn 3.375 gm In Dextrose 5% 50 50 in Water 50 ml @ 100 mls/hr IV Q6H [facility] Rx#:[id number] Oral 750 120 Output: # of times incontinent of urine 3 Other: Meal Dinner Lunch Percent of Meal Consumed 50% 50% Feeding Ability Total Assistance General appearance: cooperative, no acute distress and obese Head Head exam: Present atraumatic and normal inspection Eye Eye exam: Present normal appearance ENT ENT exam: Present mucous membranes moist, normal exam and normal external ear exam Neck Neck exam: Present normal inspection Respiratory Respiratory exam: Present normal respiratory exam Cardiovascular Cardiovascular exam: Present normal rate and rhythm GI/Abdominal GI/Abdominal exam: Present normal bowel sounds Extremities Exam Extremities exam: Absent full ROM or normal inspection Additional comments: Left lateral hip covered by surgical dressing Back Exam Back exam: Present normal inspection Neurological Exam Neurological exam: Present alert and oriented X3 Skin Skin exam: Present intact and warm OBJ DATA Labs CBC & Chem 7: 02/08/22 05:19 02/08/22 05:19 Labs: Abnormal Lab Results 02/08/22 02/08/22 02/07/22 05:19 05:19 18:17 WBC 18.6 H RBC 3.32 L Hgb 9.5 L 10.2 L Hct 30.4 L 32.2 L Plt Count 489 H MPV Neut % (Auto) 83.1 H Lymph % (Auto) 6.8 L [place] % (Auto) Lymph # (Auto) 1.26 L [place] # (Auto) 1.80 H Absolute Neutrophils 15.44 H Sodium Chloride 95 L BUN 35 H Glucose 118 H Calcium 10.7 H AST 241 H ALT 217 H Alkaline Phosphatase 126 H Total Protein Albumin 2.7 L Albumin/Globulin Ratio 0.7 L 02/07/22 02/07/22 02/06/22 05:15 05:15 05:29 WBC 13.9 H RBC 3.50 L Hgb 10.2 L Hct 31.8 L Plt Count 492 H MPV 10.5 H Neut % (Auto) 80.1 H Lymph % (Auto) 9.6 L [place] % (Auto) Lymph # (Auto) 1.33 L [place] # (Auto) 1.35 H Absolute Neutrophils 11.09 H Sodium 132 L Chloride 93 L BUN 26 H 26 H Glucose 135 H Calcium 10.8 H 10.7 H AST 136 H 45 H ALT 116 H Alkaline Phosphatase 125 H Total Protein 5.8 L Albumin 3.0 L 2.4 L Albumin/Globulin Ratio 0.8 L 0.7 L 02/06/22 05:29 WBC 11.6 H RBC 3.21 L Hgb 9.3 L Hct 29.9 L Plt Count MPV 10.7 H Neut % (Auto) Lymph % (Auto) 14.3 L [place] % (Auto) 13.7 H Lymph # (Auto) [place] # (Auto) 1.59 H Absolute Neutrophils 8.01 H Sodium Chloride BUN Glucose Calcium AST ALT Alkaline Phosphatase Total Protein Albumin Albumin/Globulin Ratio Meds: Medications Acetaminophen (Acetaminophen 325 Mg Tablet) 650 mg PO Q6HP PRN; Protocol PRN Reason: Per Pain Protocol/Fever > 101 Last Admin: 02/06/22 15:57 Dose: 650 mg Documented by: Hydrocodone Bitart/Acetaminophen (Hydrocodone/Apap 10/325mg Tablet) 0 tab PO Q4HP PRN; Protocol PRN Reason: Per Pain Protocol Last Admin: 02/06/22 20:17 Dose: 2 tab Documented by: Albuterol/Ipratropium (Ipratropium/Albuterol 3 Ml Ampul.Neb) 3 ml NEB Q4HP PRN PRN Reason: Shortness Of Breath Amantadine HCl (Amantadine Hcl 100 Mg Capsule) 100 mg PO BID [facility] Last Admin: 02/08/22 10:43 Dose: 100 mg Documented by: Benztropine Mesylate (Benztropine 1 Mg Tablet) 2 mg PO BID [facility] Last Admin: 02/08/22 10:15 Dose: 2 mg Documented by: Bisacodyl (Bisacodyl 10 Mg Supp.Rect) 10 mg [place] Q2-3DAYS PRN PRN Reason: Constipation Calcium Carbonate/Glycine (Calcium Carbonate 500 Mg Tab.Chew) 1,000 mg CHEWED Q4HP PRN PRN Reason: Indigestion Calcium Carbonate/Glycine (Calcium (Oyster Shell) 500 Mg Tablet) 500 mg PO BID [facility] Last Admin: 02/08/22 10:17 Dose: 500 mg Documented by: Carvedilol (Carvedilol 6.25 Mg Tablet) 6.25 mg PO BIDCC [facility] Last Admin: 02/08/22 10:45 Dose: 6.25 mg Documented by: Cyclobenzaprine HCl (Cyclobenzaprine 10 Mg Tablet) 10 mg PO TIDP PRN PRN Reason: Muscle Spasm Diagnostic Test (Pha) (Accu-Chek 1 Each Strip) 1 each FS UD PRN PRN Reason: . Stop: 02/08/22 14:42 Docusate Sodium (Docusate Sodium 100 Mg Capsule) 100 mg PO BID [facility] Last Admin: 02/08/22 10:16 Dose: 100 mg Documented by: Furosemide (Furosemide 20 Mg Tablet) 40 mg PO DAILY [facility] Last Admin: 02/08/22 10:20 Dose: Not Given Documented by: Potassium Chloride 40 meq/ (Dextrose) 520 mls @ 130 mls/hr IV UD PRN PRN Reason: Potassium < 3 Magnesium Sulfate (Magnesium Sulfate) 2 gm in 50 mls @ 50 mls/hr IV UD PRN PRN Reason: Magnesium </= 1.6 Acetaminophen (Ofirmev) 650 mg in 65 mls @ 130 mls/hr IV Q6HP PRN; Protocol PRN Reason: PAIN/FEVER > 101 Last Infusion: 02/04/22 23:15 Dose: Infused Documented by: Piperacillin Sod/Tazobactam (Sod 3.375 gm/ Dextrose) 50 mls @ 100 mls/hr IV Q6H [facility]; Protocol Last Admin: 02/08/22 11:50 Dose: 100 mls/hr Documented by: Lorazepam (Lorazepam 1 Mg Tablet) 1 mg PO BIDP PRN PRN Reason: Anxiety Last Admin: 02/06/22 20:17 Dose: 1 mg Documented by: Magnesium Citrate (Magnesium Citrate 300 Ml Oral.Becky) 300 ml PO DAILYP PRN PRN Reason: Constipation Magnesium Hydroxide (Magnesium Hydroxide 30 Ml Oral.Susp) 30 ml PO BIDP PRN PRN Reason: Constipation Methocarbamol (Methocarbamol 750 Mg Tablet) 750 mg PO Q6HP PRN PRN Reason: Muscle Spasm Last Admin: 02/04/22 17:30 Dose: 750 mg Documented by: Midazolam HCl (Midazolam 2 Mg/2 Ml Vial) 0 mg IV ONCE SUE Stop: 02/08/22 14:42 Last Admin: 02/08/22 07:08 Dose: 1 mg Documented by: Morphine Sulfate (Morphine 4 Mg/Ml Vial) 0 mg IV Q1HP PRN; Protocol PRN Reason: Per Pain Protocol Last Admin: 02/03/22 20:42 Dose: 4 mg Documented by: Olanzapine (Olanzapine 5 Mg Tablet) 7.5 mg PO HS [facility] Last Admin: 02/07/22 22:18 Dose: 7.5 mg Documented by: Ondansetron HCl (Ondansetron 4 Mg/2 Ml Vial) 4 mg IV Q4HP PRN PRN Reason: Nausea And Vomiting Last Admin: 02/07/22 08:11 Dose: 4 mg Documented by: Ondansetron HCl (Ondansetron 4 Mg Odt Tablet) 4 mg SL Q4HP PRN; Protocol PRN Reason: Nausea And Vomiting Pantoprazole Sodium (Pantoprazole 40 Mg Vial) 40 mg IV BIDAC [facility] Last Admin: 02/08/22 07:50 Dose: 40 mg Documented by: Budesonide- Formoterol [ Symbicort] 10.2 Gm Hfa Inhaler 2 dose INH BID [facility] Last Admin: 02/08/22 10:57 Dose: Not Given Documented by: Diclofenac Sodium 1 (% Gel) 2 dose TOPICAL TID [facility] Last Admin: 02/08/22 10:57 Dose: Not Given Documented by: Polyethylene Glycol (Polyethylene Glycol 3350 17 Gm Packet) 17 gm PO BID [facility] Last Admin: 02/08/22 10:17 Dose: 17 gm Documented by: Polyethylene Glycol (Polyethylene Glycol 3350 17 Gm Packet) 17 gm PO DAILYP PRN PRN Reason: Constipation Potassium Chloride (Potassium Chloride 10 Meq Tablet) 10 meq PO BIDCC [facility] Last Admin: 02/08/22 10:16 Dose: 10 meq Documented by: Potassium Chloride (Potassium Chloride 20 Meq Tablet) 40 meq PO UD PRN PRN Reason: Potssium is 3-3.5 Potassium Chloride (Potassium Chloride 20 Meq Tablet) 40 meq PO UD PRN PRN Reason: Potassium < 3 Prazosin HCl (Prazosin 1 Mg Capsule) 2 mg PO BID [facility] Last Admin: 02/08/22 10:22 Dose: Not Given Documented by: Propofol (Propofol 200 Mg/20 Ml Vial) 0 mg IV UD [facility] Stop: 02/08/22 14:42 Last Admin: 02/08/22 07:08 Dose: 100 mg Documented by: Senna (Sennosides 1 Tablet) 1 tab PO BID [facility] Last Admin: 02/08/22 10:15 Dose: 1 tab Documented by: Simvastatin (Simvastatin 20 Mg Tablet) 20 mg PO HS [facility] Last Admin: 02/07/22 22:18 Dose: 20 mg Documented by: Sodium Biphosphate/Sodium Phosphate (Fleets Adult Enema) 1 dose OR Q3-4DAYS PRN PRN Reason: Constipation Sodium Chloride (0.9 % Sodium Chloride 10 Ml Syringe) 10 ml IV Q8 [facility] Last Admin: 02/08/22 11:51 Dose: 10 ml Documented by: Throat Lozenges (Benzocaine/Menthol 1 Lozenge) 1 lozenge PO PRN PRN PRN Reason: Sore Throat Tiotropium [place] (Tiotropium [place] 18 Mcg Inhalant) 18 mcg INH DAILY [facility] Last Admin: 02/08/22 10:58 Dose: Not Given Documented by: Trazodone HCl (Trazodone Hcl 50 Mg Tablet) 50 mg PO HSP PRN PRN Reason: Insomnia Last Admin: 02/07/22 22:18 Dose: 50 mg Documented by: A/P Assessment and plan (1) CAD (coronary artery disease): Status: Acute (2) Closed hip fracture: Status: Acute (3) Mixed dyslipidemia: Status: Acute (4) Essential hypertension: Status: Acute (5) ADRIANE on CPAP: Status: Acute (6) COPD (chronic obstructive pulmonary disease): Status: Acute (7) Dementia: Status: Acute (8) Fever: Status: Acute (9) Upper GI bleeding: Status: Acute (10) Gastritis: Status: Acute (11) Esophagitis: Status: Acute Narrative A/P Narrative: Assessment and Plans: 1. Closed left hip fracture: s/p ORIF by orthopedic surgeon Dr. Payan 02/03/22; post operative care as per surgical team including pain control No weight bearing on LLE SCDs; hold Fondaparinux for GI bleeding Physical therapy Pending SNF placement 2. h/o dementia: Amantadine Need to clarify if [place] can take care of his physical rehab needs or if we need to make arrangement for physical rehab placement 3. h/o CAD: Continue Coreg Continue Simvastatin 4. Essential HTN: Currently borderline hypotensive Continue Coreg Continue Lasix Hold Losartan for soft blood pressure 5. Mixed dyslipidemia: Continue Simvastatin 6. h/o COPD: Supplemental oxygen therapy titrate to achieve spo2>=88%, currently on room air Symbicort Spiriva DuoNEB NEB PRN wheezing Chest X ray 7. ADRIANE on CPAP: Continue CPAP at night while sleeping 8. Fever: Blood culture, no growth to date Urine culture, no growth to date Chest X ray showing moderate cardiomyopathy and stable COPD Zosyn as empiric antibiotics Tylenol PRN fever 9. Upper GI bleeding: EGD on 02/07 found gastritis and esophagitis Daily cbc w/ auto diff to trend H/H Resume dysphagia diet Protonix IV BID hold Fondaparinux for now, resume at time of hospital discharge GI ppx: Protonix IV DVT ppx: SCDs; hold Fondaparinux for now, resume at time of hospital discharge Code status: DNI DNR Prognosis: guarded Disposition: inpatient med surg; pending SNF placement Time Spent With Patient Time: Total time spent is greater than 50% in coordination of care (as documented) at patient's floor/unit and/or counseling patient: Total time spent with greater than 50% in coordination of care (as documented) at patient's floor/unit and/or counseling patient:: 35 - 50 minutes QUALITY VTE Deep Vein Thrombosis/Pulmonary Embolism Present on Admission: No
[2022-02-08] MEDS: traZODone HCL 50 MG TABLET PO PRN (21:47)
[2022-02-08] MEDS: OLANZapine 5 MG TABLET PO SCH (21:47)
[2022-02-08] MEDS: SIMVASTATIN 20 MG TABLET PO SCH (21:47)
[2022-02-09] MEDS: PIPERACILLIN SODIUM/TAZOBACTAM 3.375 GM in DEXTROSE 5% IN WATER 50 ML IV SCH ×4 (02:47→17:18)
[2022-02-09] MEDS: 0.9 % SODIUM CHLORIDE 10 ML SYRINGE IV SCH ×3 (04:40→21:30)
[2022-02-09 06:38] LABS: Basophils # (Auto) 0.06 K/mcL (0.00-0.30); Basophils % (Auto) 0.3 % (0.0-2.0); Eosinophils # (Auto) 0.21 K/mcL (0.00-0.70); Hemoglobin 8.1 g/dL (13.7-17.5); Lymphocytes # (Auto) 1.44 K/mcL (1.50-4.80); Mean Cell Volume 92.2 fL (80.0-100.0); Mean Corpuscular HGB Conc 31.2 g/dL (31.0-36.0); Mean Platelet Volume 10.4 fL (7.4-10.4); Monocytes # (Auto) 1.79 K/mcL (0.10-0.90); Monocytes % (Auto) 8.7 % (1.0-12.0); Platelet Count 413 K/mcL (140-440); RBC 2.82 M/mcL (4.63-6.08); Red Cell Distribution Width 14.1 % (11.5-14.5); WBC 20.5 K/mcL (4.5-11.0)
[2022-02-09] MEDS: PANTOPRAZOLE 40 MG VIAL IV SCH ×2 (06:58→16:25)
[2022-02-09 07:03] LABS: ALT/SGPT 322 U/L (<40); AST/SGOT 264 U/L (<40); Albumin 2.7 gm/dL (3.2-5.2); Albumin/Globulin Ratio 0.9 (1.0-2.3); Alkaline Phosphatase 136 U/L (39-117); Bilirubin,Total 0.3 mg/dL (0.1-1.0); Blood Urea Nitrogen 23 mg/dL (8-23); Calcium 9.8 mg/dL (8.6-10.4); Carbon Dioxide 27 mmol/L (22-30); Chloride 100 mmol/L (96-108); Globulin 2.9 gm/dL (2.2-3.7); Glomerular Filtration Rate 85; Glucose 113 mg/dL (70-105)
[2022-02-09] MEDS ORDERED: POTASSIUM CHLORIDE 20 MEQ in DEXTROSE 5% IN WATER 250 ML IV PRN (08:30)
[2022-02-09] MEDS: DOCUSATE SODIUM 100 MG CAPSULE PO SCH ×2 (09:19→20:10)
[2022-02-09] MEDS: SENNOSIDES 1 TABLET PO SCH ×2 (09:20→20:10)
[2022-02-09] MEDS: POLYETHYLENE GLYCOL 3350 17 GM PACKET PO SCH ×2 (09:20→20:10)
[2022-02-09] MEDS: DICLOFENAC SODIUM 1% TOPICAL SCH ×3 (09:20→20:10)
[2022-02-09] MEDS: BUDESONIDE FORMOTEROL INH SCH ×2 (09:20→20:10)
[2022-02-09] MEDS: TIOTROPIUM BROMIDE 18 MCG INHALANT INH SCH (09:20)
[2022-02-09] MEDS: CALCIUM (OYSTER SHELL) 500 MG TABLET PO SCH ×2 (09:26→20:08)
[2022-02-09] MEDS: POTASSIUM CHLORIDE 10 MEQ TABLET PO SCH ×2 (09:26→16:29)
[2022-02-09] MEDS: AMANTADINE HCL 100 MG CAPSULE PO SCH ×2 (09:27→20:06)
[2022-02-09] MEDS: FUROSEMIDE 20 MG TABLET PO SCH (09:27)
[2022-02-09] MEDS: PRAZOSIN 1 MG CAPSULE PO SCH ×2 (09:27→20:08)
[2022-02-09] MEDS: BENZTROPINE 1 MG TABLET PO SCH ×2 (09:27→20:09)
[2022-02-09] MEDS: CARVEDILOL 6.25 MG TABLET PO SCH ×2 (09:27→16:29)
[2022-02-09] MEDS ORDERED: VANCOMYCIN PER PHARMACY IV SCH (09:29)
--- NOTE | 2022-02-09 09:29 | Internal Med Progress Note ---
SUBJECTIVE Subjective Patient information: Note initiated : 02/09/22 at 9:26 am Service Date, if different from initiated Date: [] Patient: Isrrael Carrasco a 71 y/o M admitted on 02/01/22 for left hip pain/weakness. Chief Complaint: [] Principal diagnosis: s/p left hip periposthetic fracture Interval history: Mr. Carrasco is a 71 year old M Patient recently left hip replacement on January 17 and on had a fall resulting in a nondisplaced fracture below the stem. He has had difficulty ambulating increasing pain since that time and had a repeat fall yesterday. He is now unable to bear weight as much more pain. Past medical history cleared COPD on 2 L nasal cannula. Work-up in the ED revealed an oblique displaced fracture of left hip. Dr. Payan was contacted. Patient is a smoker about half pack per day but wants to quit now. Sense of medication for parkinsonism or drug-induced extrapyramidal symptoms but not sure why. Reviewed imaging and ekg 02/02 No overnight event or new complaints. Surgery will be till tomorrow because her waiting for surgical equipment. Patient is wheezy a little bit but states she is always wheezy. Debilitated will likely need SNF. Chronic oxygen use. 02/03 Awaiting surgery today. Does seem to have some chronic tachycardia looking at old trends. 02/04: s/p ORIF last night by Dr. Payan. c/o 10/10 left lateral hip pain. No bowel movement yet since surgery. Denies any shortness of breath. Currently on room air. Pending SNF placement once cleared by surgery. 02/05: Fever with Tmax 39.3 last night. Blood and urine cultures no growth to date. Lethargic. Denies left hip pain. Denies any shortness of breath. Currently on room air. Pending SNF placement once clinically cleared. 02/06: Fever with Tmax 38.0 this morning. Blood and urine cultures no growth to date. Way more awake and alert this morning compared to yesterday. Denies left hip pain. Good appetite. Denies any shortness of breath. Currently on room air. Denies any fever or chills. Pending SNF placement once clinically cleared. 02/07: Coffee ground emesis this morning. Stable H/H. Afebrile overnight. Denies any subjective fever or chills. Denies any epigastric abdominal pain. Denies lightheadedness. Denies shortness of breath. Denies hip pain. NPO. Consult general surgeon Dr. Castorena for potential EGD. Hold anticoagulants. Continue Zosyn as empiric antibiotics for recent leukocytosis and fever. All cultures no growth to date. 02/08: Status post EGD by Dr. Castorena general surgeons on February 07, 2022, which found gastroparesis, gastritis, and esophagitis. H&H stable this morning relatively yesterday. Leukocytosis with WBC 18.6. No more episode of hematemesis or bloody or black stool. Resumed dysphagia diet. Denies any subjective fever or chills. Denies any epigastric abdominal pain. Denies lightheadedness. Denies shortness of breath. Denies hip pain. Continue Zosyn as empiric antibiotics for recent leukocytosis and fever. All cultures no growth to date. 02/09: Lethargic. Leukocytosis worsening WBC 18.6-->20.5. Blood cultures no growth to date. Will broaden antibiotics therapy by adding Vancomycin in addition to Zosyn. Prognosis extremely guarded. Constitutional Vitals: Vital Signs Temp Pulse Resp BP Pulse Ox 36.6 C 108 H 17 125/70 91 02/09/22 07:31 02/09/22 07:31 02/09/22 07:31 02/09/22 07:31 02/09/22 07:31 Period Temp Pulse Resp BP Sys/[place] Pulse Ox Last 24 Hr 36.6 C-37.6 C 95-119 17-24 114-139/68-89 90-92 Intake and Output 02/08/22 02/09/22 02/09/22 21:59 05:59 13:59 Intake Total 570 349 Output Total 4 0 Balance 566 349 Weight 106.231 kg Intake & Output: Intake & Output 02/08/22 02/09/22 02/09/22 21:59 05:59 13:59 Intake Total 570 349 Output Total 4 0 Balance 566 349 Weight 106.231 kg Intake: IV 50 349 Sodium Chloride 0.9% 1,000 ml @ 349 75 mls/hr IV .[id number] [facility] Rx#: [id number] Zosyn 3.375 gm In Dextrose 5% 50 in Water 50 ml @ 100 mls/hr IV Q6H [facility] Rx#:[id number] Oral 520 0 Output: Void Amount 0 # of times incontinent of urine 4 Other: Meal Dinner Percent of Meal Consumed 25% Feeding Ability Assist with Tray Set Up Urine Color Dark Yellow Stool Size Large Stool Color Brown Green Stool Consistency Liquid # Voids 0 General appearance: disheveled Exam: lethargic Head Head exam: Present atraumatic and normal inspection Eye Eye exam: Present normal appearance ENT ENT exam: Present mucous membranes moist, normal exam and normal external ear exam Neck Neck exam: Present normal inspection Respiratory Respiratory exam: Present normal respiratory exam Cardiovascular Cardiovascular exam: Present normal rate and rhythm GI/Abdominal GI/Abdominal exam: Present normal bowel sounds Extremities Exam Extremities exam: Absent full ROM or normal inspection Additional comments: Left lateral hip covered by surgical dressing Back Exam Back exam: Present normal inspection Neurological Exam Neurological exam: Present altered; Absent alert or oriented X3 Additional comments: lethargic Psychiatric Additional comments: not assessed due to clinical situations Skin Skin exam: Present intact and warm OBJ DATA Labs CBC & Chem 7: 02/09/22 05:25 02/09/22 05:00 Labs: Abnormal Lab Results 02/09/22 02/09/22 02/08/22 05:25 05:00 05:19 WBC 20.5 H RBC 2.82 L Hgb 8.1 L Hct 26.0 L Plt Count MPV Neut % (Auto) 83.0 H Lymph % (Auto) 7.0 L Lymph # (Auto) 1.44 L Conway # (Auto) 1.79 H Absolute Neutrophils 17.03 H Sodium Potassium 3.1 L Chloride 95 L BUN 35 H Glucose 113 H 118 H Calcium 10.7 H AST 264 H 241 H ALT 322 H 217 H Alkaline Phosphatase 136 H 126 H Total Protein 5.6 L Albumin 2.7 L 2.7 L Albumin/Globulin Ratio 0.9 L 0.7 L 02/08/22 02/07/22 02/07/22 05:19 18:17 05:15 WBC 18.6 H RBC 3.32 L Hgb 9.5 L 10.2 L Hct 30.4 L 32.2 L Plt Count 489 H MPV Neut % (Auto) 83.1 H Lymph % (Auto) 6.8 L Lymph # (Auto) 1.26 L Conway # (Auto) 1.80 H Absolute Neutrophils 15.44 H Sodium 132 L Potassium Chloride 93 L BUN 26 H Glucose 135 H Calcium 10.8 H AST 136 H ALT 116 H Alkaline Phosphatase 125 H Total Protein Albumin 3.0 L Albumin/Globulin Ratio 0.8 L 02/07/22 05:15 WBC 13.9 H RBC 3.50 L Hgb 10.2 L Hct 31.8 L Plt Count 492 H MPV 10.5 H Neut % (Auto) 80.1 H Lymph % (Auto) 9.6 L Lymph # (Auto) 1.33 L Conway # (Auto) 1.35 H Absolute Neutrophils 11.09 H Sodium Potassium Chloride BUN Glucose Calcium AST ALT Alkaline Phosphatase Total Protein Albumin Albumin/Globulin Ratio Meds: Medications Acetaminophen (Acetaminophen 325 Mg Tablet) 650 mg PO Q6HP PRN; Protocol PRN Reason: Per Pain Protocol/Fever > 101 Last Admin: 02/06/22 15:57 Dose: 650 mg Documented by: Hydrocodone Bitart/Acetaminophen (Hydrocodone/Apap 10/325mg Tablet) 0 tab PO Q4HP PRN; Protocol PRN Reason: Per Pain Protocol Last Admin: 02/06/22 20:17 Dose: 2 tab Documented by: Albuterol/Ipratropium (Ipratropium/Albuterol 3 Ml Ampul.Neb) 3 ml NEB Q4HP PRN PRN Reason: Shortness Of Breath Amantadine HCl (Amantadine Hcl 100 Mg Capsule) 100 mg PO BID [facility] Last Admin: 02/08/22 21:46 Dose: 100 mg Documented by: Benztropine Mesylate (Benztropine 1 Mg Tablet) 2 mg PO BID [facility] Last Admin: 02/08/22 21:47 Dose: 2 mg Documented by: Bisacodyl (Bisacodyl 10 Mg Supp.Rect) 10 mg FL Q2-3DAYS PRN PRN Reason: Constipation Calcium Carbonate/Glycine (Calcium Carbonate 500 Mg Tab.Chew) 1,000 mg CHEWED Q4HP PRN PRN Reason: Indigestion Calcium Carbonate/Glycine (Calcium (Oyster Shell) 500 Mg Tablet) 500 mg PO BID [facility] Last Admin: 02/08/22 21:47 Dose: 500 mg Documented by: Carvedilol ([facility] 6.25 Mg Tablet) [facility] Last Admin: 02/08/22 17:16 Dose: 6.25 mg Documented by: Cyclobenzaprine HCl (Cyclobenzaprine 10 Mg Tablet) 10 mg PO TIDP PRN PRN Reason: Muscle Spasm Docusate Sodium (Docusate Sodium 100 Mg Capsule) 100 mg PO BID [facility] Last Admin: 02/09/22 09:19 Dose: Not Given Documented by: Furosemide (Furosemide 20 Mg Tablet) 40 mg PO DAILY [facility] Last Admin: 02/08/22 10:20 Dose: Not Given Documented by: Potassium Chloride 40 meq/ (Dextrose) 520 mls @ 130 mls/hr IV UD PRN PRN Reason: Potassium < 3 Magnesium Sulfate (Magnesium Sulfate) 2 gm in 50 mls @ 50 mls/hr IV UD PRN PRN Reason: Magnesium </= 1.6 Acetaminophen (Ofirmev) 650 mg in 65 mls @ 130 mls/hr IV Q6HP PRN; Protocol PRN Reason: PAIN/FEVER > 101 Last Infusion: 02/04/22 23:15 Dose: Infused Documented by: Piperacillin Sod/Tazobactam (Sod 3.375 gm/ Dextrose) 50 mls @ 100 mls/hr IV Q6H [facility]; Protocol Last Admin: 02/09/22 04:40 Dose: Not Given Documented by: Potassium Chloride 20 meq/ (Dextrose) 260 mls @ 130 mls/hr IV UD PRN PRN Reason: hypokalemia Lorazepam (Lorazepam 1 Mg Tablet) 1 mg PO BIDP PRN PRN Reason: Anxiety Last Admin: 02/06/22 20:17 Dose: 1 mg Documented by: Magnesium Citrate (Magnesium Citrate 300 Ml Oral.Becky) 300 ml PO DAILYP PRN PRN Reason: Constipation Magnesium Hydroxide (Magnesium Hydroxide 30 Ml Oral.Susp) 30 ml PO BIDP PRN PRN Reason: Constipation Methocarbamol (Methocarbamol 750 Mg Tablet) 750 mg PO Q6HP PRN PRN Reason: Muscle Spasm Last Admin: 02/04/22 17:30 Dose: 750 mg Documented by: Morphine Sulfate (Morphine 4 Mg/Ml Vial) 0 mg IV Q1HP PRN; Protocol PRN Reason: Per Pain Protocol Last Admin: 02/03/22 20:42 Dose: 4 mg Documented by: Olanzapine (Olanzapine 5 Mg Tablet) 7.5 mg PO [facility] Last Admin: 02/08/22 21:47 Dose: 7.5 mg Documented by: Ondansetron HCl (Ondansetron 4 Mg/2 Ml Vial) 4 mg IV Q4HP PRN PRN Reason: Nausea And Vomiting Last Admin: 02/07/22 08:11 Dose: 4 mg Documented by: Ondansetron HCl (Ondansetron 4 Mg Odt Tablet) 4 mg SL Q4HP PRN; Protocol PRN Reason: Nausea And Vomiting Pantoprazole Sodium (Pantoprazole 40 Mg Vial) 40 mg IV BIDAC [facility] Last Admin: 02/09/22 06:58 Dose: Not Given Documented by: Budesonide- Formoterol [ Symbicort] 10.2 Gm Hfa Inhaler 2 dose INH BID [facility] Last Admin: 02/09/22 09:20 Dose: Not Given Documented by: Diclofenac Sodium 1 (% Gel) 2 dose TOPICAL TID [facility] Last Admin: 02/09/22 09:20 Dose: Not Given Documented by: Polyethylene Glycol (Polyethylene Glycol 3350 17 Gm Packet) 17 gm PO BID [facility] Last Admin: 02/09/22 09:20 Dose: Not Given Documented by: Polyethylene Glycol (Polyethylene Glycol 3350 17 Gm Packet) 17 gm PO DAILYP PRN PRN Reason: Constipation Potassium Chloride (Potassium Chloride 10 Meq Tablet) 10 meq PO BIDCC [facility] Last Admin: 02/08/22 17:16 Dose: 10 meq Documented by: Potassium Chloride (Potassium Chloride 20 Meq Tablet) 40 meq PO UD PRN PRN Reason: Potssium is 3-3.5 Potassium Chloride (Potassium Chloride 20 Meq Tablet) 40 meq PO UD PRN PRN Reason: Potassium < 3 Prazosin HCl (Prazosin 1 Mg Capsule) 2 mg PO BID [facility] Last Admin: 02/08/22 21:46 Dose: 2 mg Documented by: Senna (Sennosides 1 Tablet) 1 tab PO BID [facility] Last Admin: 02/09/22 09:20 Dose: Not Given Documented by: Simvastatin (Simvastatin 20 Mg Tablet) 20 mg PO HS [facility] Last Admin: 02/08/22 21:47 Dose: 20 mg Documented by: Sodium Biphosphate/Sodium Phosphate (Fleets Adult Enema) 1 dose FL Q3-4DAYS PRN PRN Reason: Constipation Sodium Chloride (0.9 % Sodium Chloride 10 Ml Syringe) 10 ml IV Q8 [facility] Last Admin: 02/09/22 04:40 Dose: Not Given Documented by: Throat Lozenges (Benzocaine/Menthol 1 Lozenge) 1 lozenge PO PRN PRN PRN Reason: Sore Throat Tiotropium Terril (Tiotropium Terril 18 Mcg Inhalant) 18 mcg INH DAILY [facility] Last Admin: 02/09/22 09:20 Dose: Not Given Documented by: Trazodone HCl (Trazodone Hcl 50 Mg Tablet) 50 mg PO HSP PRN PRN Reason: Insomnia Last Admin: 02/08/22 21:47 Dose: 50 mg Documented by: A/P Assessment and plan (1) CAD (coronary artery disease): Status: Acute (2) Closed hip fracture: Status: Acute (3) Mixed dyslipidemia: Status: Acute (4) Essential hypertension: Status: Acute (5) ADRIANE on CPAP: Status: Acute (6) COPD (chronic obstructive pulmonary disease): Status: Acute (7) Dementia: Status: Acute (8) Fever: Status: Acute (9) Upper GI bleeding: Status: Acute (10) Gastritis: Status: Acute (11) Esophagitis: Status: Acute Narrative A/P Narrative: Assessment and Plans: 1. Closed left hip fracture: s/p ORIF by orthopedic surgeon Dr. Payan 02/03/22; post operative care as per surgical team including pain control No weight bearing on LLE SCDs; hold Fondaparinux for GI bleeding Physical therapy Pending SNF placement 2. h/o dementia: Amantadine Need to clarify if [facility] can take care of his physical rehab needs or if we need to make arrangement for physical rehab placement 3. h/o CAD: Continue Coreg Continue Simvastatin 4. Essential HTN: Currently borderline hypotensive Continue Coreg Continue Lasix Hold Losartan for soft blood pressure 5. Mixed dyslipidemia: Continue Simvastatin 6. h/o COPD: Supplemental oxygen therapy titrate to achieve spo2>=88%, currently on room air Symbicort Spiriva DuoNEB NEB PRN wheezing Chest X ray 7. ADRIANE on CPAP: Continue CPAP at night while sleeping 8. Fever: Blood culture, no growth to date Urine culture, no growth to date Chest X ray showing moderate cardiomyopathy and stable COPD Zosyn as empiric antibiotics Add Vancomycin to broaden the antibiotic spectrum coverage Tylenol PRN fever 9. Upper GI bleeding: EGD on 02/07 found gastritis and esophagitis Daily cbc w/ auto diff to trend H/H NPO for lethargic Protonix IV BID hold Fondaparinux for now, resume at time of hospital discharge GI ppx: Protonix IV DVT ppx: SCDs; hold Fondaparinux for now, resume at time of hospital discharge Code status: DNI DNR Prognosis: extremely guarded Disposition: inpatient med surg; pending SNF placement Time Spent With Patient Time: Total time spent is greater than 50% in coordination of care (as documented) at patient's floor/unit and/or counseling patient: QUALITY VTE Deep Vein Thrombosis/Pulmonary Embolism Present on Admission: No
[2022-02-09] MEDS ORDERED: VANCOMYCIN 1,500 MG in 0.9 % SODIUM CHLORIDE 500 ML IV SCH (10:00)
[2022-02-09] MEDS: DEXTROSE 5%-LR 1,000 ML IV SCH (11:25)
[2022-02-09] MEDS: VANCOMYCIN 1,500 MG in 0.9 % SODIUM CHLORIDE 500 ML IV SCH ×2 (12:53→21:30)
[2022-02-09] MEDS: POTASSIUM CHLORIDE 20 MEQ TABLET PO PRN (15:03)
[2022-02-09] MEDS: OLANZapine 5 MG TABLET PO SCH (20:07)
[2022-02-09] MEDS: SIMVASTATIN 20 MG TABLET PO SCH (20:09)
[2022-02-10] MEDS: DEXTROSE 5%-LR 1,000 ML IV SCH ×3 (00:54→12:41)
[2022-02-10] MEDS: PIPERACILLIN SODIUM/TAZOBACTAM 3.375 GM in DEXTROSE 5% IN WATER 50 ML IV SCH ×5 (05:57→23:21)
[2022-02-10] MEDS: 0.9 % SODIUM CHLORIDE 10 ML SYRINGE IV SCH ×4 (06:00→23:22)
[2022-02-10 06:28] LABS: Basophils # (Auto) 0.07 K/mcL (0.00-0.30); Basophils % (Auto) 0.3 % (0.0-2.0); Eosinophils # (Auto) 0.46 K/mcL (0.00-0.70); Eosinophils % (Auto) 2.3 % (0.0-7.0); Hematocrit 26.2 % (40.1-51.0); Hemoglobin 7.9 g/dL (13.7-17.5); Lymphocytes # (Auto) 1.46 K/mcL (1.50-4.80); Lymphocytes % (Auto) 7.3 % (15.5-49.0); Mean Cell Volume 94.9 fL (80.0-100.0); Mean Corpuscular HGB Conc 30.2 g/dL (31.0-36.0); Mean Platelet Volume 10.3 fL (7.4-10.4); Monocytes # (Auto) 1.73 K/mcL (0.10-0.90); Monocytes % (Auto) 8.6 % (1.0-12.0); Neutrophils % (Auto) 81.5 % (38.0-78.0); Platelet Count 412 K/mcL (140-440); RBC 2.76 M/mcL (4.63-6.08); Red Cell Distribution Width 14.5 % (11.5-14.5); WBC 20.1 K/mcL (4.5-11.0)
[2022-02-10 06:55] LABS: ALT/SGPT 338 U/L (<40); AST/SGOT 222 U/L (<40); Albumin 2.3 gm/dL (3.2-5.2); Albumin/Globulin Ratio 0.7 (1.0-2.3); Alkaline Phosphatase 172 U/L (39-117); Bilirubin,Total 0.3 mg/dL (0.1-1.0); Blood Urea Nitrogen 14 mg/dL (8-23); Calcium 9.3 mg/dL (8.6-10.4); Carbon Dioxide 26 mmol/L (22-30); Chloride 105 mmol/L (96-108); Globulin 3.2 gm/dL (2.2-3.7); Glomerular Filtration Rate 89; Glucose 116 mg/dL (70-105)
[2022-02-10] MEDS: DOCUSATE SODIUM 100 MG CAPSULE PO SCH ×2 (08:09→20:20)
[2022-02-10] MEDS: POLYETHYLENE GLYCOL 3350 17 GM PACKET PO SCH ×2 (08:09→20:21)
[2022-02-10] MEDS: BUDESONIDE FORMOTEROL INH SCH ×2 (08:10→20:21)
[2022-02-10] MEDS: DICLOFENAC SODIUM 1% TOPICAL SCH ×3 (08:10→20:21)
[2022-02-10] MEDS: TIOTROPIUM BROMIDE 18 MCG INHALANT INH SCH (08:10)
[2022-02-10] MEDS: SENNOSIDES 1 TABLET PO SCH ×2 (08:17→20:21)
[2022-02-10] MEDS: PANTOPRAZOLE 40 MG VIAL IV SCH ×2 (08:21→17:18)
[2022-02-10] MEDS: AMANTADINE HCL 100 MG CAPSULE PO SCH ×2 (08:23→20:32)
[2022-02-10] MEDS: CARVEDILOL 6.25 MG TABLET PO SCH ×2 (08:23→17:18)
[2022-02-10] MEDS: CALCIUM (OYSTER SHELL) 500 MG TABLET PO SCH ×2 (08:23→20:31)
[2022-02-10] MEDS: POTASSIUM CHLORIDE 10 MEQ TABLET PO SCH ×2 (08:23→17:18)
[2022-02-10] MEDS: PRAZOSIN 1 MG CAPSULE PO SCH ×2 (08:23→20:31)
[2022-02-10] MEDS: BENZTROPINE 1 MG TABLET PO SCH ×2 (08:25→20:30)
[2022-02-10] MEDS: FUROSEMIDE 20 MG TABLET PO SCH (08:25)
[2022-02-10] MEDS: VANCOMYCIN 1,500 MG in 0.9 % SODIUM CHLORIDE 500 ML IV SCH ×2 (10:00→20:47)
--- NOTE | 2022-02-10 15:22 | Internal Med Progress Note ---
SUBJECTIVE Subjective Patient information: Note initiated : 02/10/22 at 3:18 pm Service Date, if different from initiated Date: [] Patient: Isrrael Carrasco a 71 y/o M admitted on 02/01/22 for left hip pain/weakness. Chief Complaint: [] Principal diagnosis: s/p left hip periposthetic fracture Interval history: Mr. Carrasco is a 71 year old M Patient recently left hip replacement on January 17 and on had a fall resulting in a nondisplaced fracture below the stem. He has had difficulty ambulating increasing pain since that time and had a repeat fall yesterday. He is now unable to bear weight as much more pain. Past medical history cleared COPD on 2 L nasal cannula. Work-up in the ED revealed an oblique displaced fracture of left hip. Dr. Payan was contacted. Patient is a smoker about half pack per day but wants to quit now. Sense of medication for parkinsonism or drug-induced extrapyramidal symptoms but not sure why. Reviewed imaging and ekg 02/02 No overnight event or new complaints. Surgery will be till tomorrow because her waiting for surgical equipment. Patient is wheezy a little bit but states she is always wheezy. Debilitated will likely need SNF. Chronic oxygen use. 02/03 Awaiting surgery today. Does seem to have some chronic tachycardia looking at old trends. 02/04: s/p ORIF last night by Dr. Payan. c/o 10/10 left lateral hip pain. No bowel movement yet since surgery. Denies any shortness of breath. Currently on room air. Pending SNF placement once cleared by surgery. 02/05: Fever with Tmax 39.3 last night. Blood and urine cultures no growth to date. Lethargic. Denies left hip pain. Denies any shortness of breath. Currently on room air. Pending SNF placement once clinically cleared. 02/06: Fever with Tmax 38.0 this morning. Blood and urine cultures no growth to date. Way more awake and alert this morning compared to yesterday. Denies left hip pain. Good appetite. Denies any shortness of breath. Currently on room air. Denies any fever or chills. Pending SNF placement once clinically cleared. 02/07: Coffee ground emesis this morning. Stable H/H. Afebrile overnight. Denies any subjective fever or chills. Denies any epigastric abdominal pain. Denies lightheadedness. Denies shortness of breath. Denies hip pain. NPO. Consult general surgeon Dr. Castorena for potential EGD. Hold anticoagulants. Continue Zosyn as empiric antibiotics for recent leukocytosis and fever. All cultures no growth to date. 02/08: Status post EGD by Dr. Castorena general surgeons on February 07, 2022, which found gastroparesis, gastritis, and esophagitis. H&H stable this morning relatively yesterday. Leukocytosis with WBC 18.6. No more episode of hematemesis or bloody or black stool. Resumed dysphagia diet. Denies any subjective fever or chills. Denies any epigastric abdominal pain. Denies lightheadedness. Denies shortness of breath. Denies hip pain. Continue Zosyn as empiric antibiotics for recent leukocytosis and fever. All cultures no growth to date. 02/09: Lethargic. Leukocytosis worsening WBC 18.6-->20.5. Blood cultures no growth to date. Will broaden antibiotics therapy by adding Vancomycin in addition to Zosyn. Prognosis extremely guarded 02/10: Continues to be lethargic. Hard to arouse with voice or touch. WBC remained at 20k.Blood cultures no growth to date Cont Vanc and Zosyn. Prognosis guarded. Ordered CT Head, Ammonia and Liver US today to further workup cause of his lethargy. Pertinent ROS: Unable to obtaindue to lethargy Constitutional Vitals: Vital Signs Temp Pulse Resp BP Pulse Ox 97.1 F 86 16 138/87 94 02/10/22 11:43 02/10/22 11:43 02/10/22 11:43 02/10/22 11:43 02/10/22 11:45 Period Temp Pulse Resp BP Sys/[place] Pulse Ox Last 24 Hr 97.1 F-99.1 F 77-106 16-20 121-139/60-87 89-94 Intake and Output 02/10/22 02/10/22 02/10/22 05:59 13:59 21:59 Intake Total 1550 600 Balance 1550 600 Intake & Output: Intake & Output 02/10/22 02/10/22 02/10/22 05:59 13:59 21:59 Intake Total 1550 600 Balance 1550 600 Intake: IV 1550 600 Dextrose 5%-Lactated Ringers 1, 1000 000 ml @ 75 mls/hr IV .[id number] [facility] Rx#:[id number] Zosyn 3.375 gm In Dextrose 5% 50 100 in Water 50 ml @ 100 mls/hr IV Q6H [facility] Rx#:[id number] Vancomycin 1,500 mg In Sodium 500 500 Chloride 0.9% 500 ml @ 333.3 mls/hr IV Q12H [facility] Rx#: [id number] Other: Stool Size Large Stool Color Brown # Bowel Movements 1 General appearance: average body habitus, cooperative and no acute distress Head Head exam: Present atraumatic and normocephalic Eye Eye exam: Present normal appearance Respiratory Respiratory exam: Present normal respiratory exam and CTAB; Absent accessory muscle use, decreased breath sounds or respiratory distress Cardiovascular Cardiovascular exam: Present normal rate and rhythm and RRR; Absent bradycardia, gallop, systolic murmur or tachycardia GI/Abdominal GI/Abdominal exam: Present soft Neurological Exam Neurological exam: Present altered; Absent alert, motor sensory deficit, normal gait, oriented X3 or reflexes normal OBJ DATA Labs CBC & Chem 7: 02/10/22 05:10 02/10/22 05:10 Labs: Abnormal Lab Results 02/10/22 02/10/22 02/09/22 05:10 05:10 05:25 WBC 20.1 H 20.5 H RBC 2.76 L 2.82 L Hgb 7.9 L 8.1 L Hct 26.2 L 26.0 L MCHC 30.2 L Plt Count Neut % (Auto) 81.5 H 83.0 H Lymph % (Auto) 7.3 L 7.0 L Lymph # (Auto) 1.46 L 1.44 L [place] # (Auto) 1.73 H 1.79 H Absolute Neutrophils 16.40 H 17.03 H Potassium 3.0 L Chloride BUN Glucose 116 H Calcium AST 222 H ALT 338 H Alkaline Phosphatase 172 H Total Protein 5.5 L Albumin 2.3 L Albumin/Globulin Ratio 0.7 L 02/09/22 02/08/22 02/08/22 05:00 05:19 05:19 WBC 18.6 H RBC 3.32 L Hgb 9.5 L Hct 30.4 L MCHC Plt Count 489 H Neut % (Auto) 83.1 H Lymph % (Auto) 6.8 L Lymph # (Auto) 1.26 L [place] # (Auto) 1.80 H Absolute Neutrophils 15.44 H Potassium 3.1 L Chloride 95 L BUN 35 H Glucose 113 H 118 H Calcium 10.7 H AST 264 H 241 H ALT 322 H 217 H Alkaline Phosphatase 136 H 126 H Total Protein 5.6 L Albumin 2.7 L 2.7 L Albumin/Globulin Ratio 0.9 L 0.7 L 02/07/22 18:17 WBC RBC Hgb 10.2 L Hct 32.2 L MCHC Plt Count Neut % (Auto) Lymph % (Auto) Lymph # (Auto) [place] # (Auto) Absolute Neutrophils Potassium Chloride BUN Glucose Calcium AST ALT Alkaline Phosphatase Total Protein Albumin Albumin/Globulin Ratio Meds: Medications Acetaminophen (Acetaminophen 325 Mg Tablet) 650 mg PO Q6HP PRN; Protocol PRN Reason: Per Pain Protocol/Fever > 101 Last Admin: 02/06/22 15:57 Dose: 650 mg Documented by: Hydrocodone Bitart/Acetaminophen (Hydrocodone/Apap 10/325mg Tablet) 0 tab PO Q4HP PRN; Protocol PRN Reason: Per Pain Protocol Last Admin: 02/06/22 20:17 Dose: 2 tab Documented by: Albuterol/Ipratropium (Ipratropium/Albuterol 3 Ml Ampul.Neb) 3 ml NEB Q4HP PRN PRN Reason: Shortness Of Breath Amantadine HCl (Amantadine Hcl 100 Mg Capsule) 100 mg PO BID [facility] Last Admin: 02/10/22 08:23 Dose: 100 mg Documented by: Benztropine Mesylate (Benztropine 1 Mg Tablet) 2 mg PO BID [facility] Last Admin: 02/10/22 08:25 Dose: 2 mg Documented by: Bisacodyl (Bisacodyl 10 Mg Supp.Rect) 10 mg ID Q2-3DAYS PRN PRN Reason: Constipation Calcium Carbonate/Glycine (Calcium Carbonate 500 Mg Tab.Chew) 1,000 mg CHEWED Q4HP PRN PRN Reason: Indigestion Calcium Carbonate/Glycine (Calcium (Oyster Shell) 500 Mg Tablet) 500 mg PO BID [facility] Last Admin: 02/10/22 08:23 Dose: 500 mg Documented by: Carvedilol (Carvedilol 6.25 Mg Tablet) [facility] Last Admin: 02/10/22 08:23 Dose: 6.25 mg Documented by: Cyclobenzaprine HCl (Cyclobenzaprine 10 Mg Tablet) 10 mg PO TIDP PRN PRN Reason: Muscle Spasm Docusate Sodium (Docusate Sodium 100 Mg Capsule) 100 mg PO BID [facility] Last Admin: 02/10/22 08:09 Dose: Not Given Documented by: Furosemide (Furosemide 20 Mg Tablet) 40 mg PO DAILY [facility] Last Admin: 02/10/22 08:25 Dose: 40 mg Documented by: Potassium Chloride 40 meq/ (Dextrose) 520 mls @ 130 mls/hr IV UD PRN PRN Reason: Potassium < 3 Magnesium Sulfate (Magnesium Sulfate) 2 gm in 50 mls @ 50 mls/hr IV UD PRN PRN Reason: Magnesium </= 1.6 Acetaminophen (Ofirmev) 650 mg in 65 mls @ 130 mls/hr IV Q6HP PRN; Protocol PRN Reason: PAIN/FEVER > 101 Last Infusion: 02/04/22 23:15 Dose: Infused Documented by: Piperacillin Sod/Tazobactam (Sod 3.375 gm/ Dextrose) 50 mls @ 100 mls/hr IV Q6H [facility]; Protocol Last Infusion: 02/10/22 13:15 Dose: Infused Documented by: Potassium Chloride 20 meq/ (Dextrose) 260 mls @ 130 mls/hr IV UD PRN PRN Reason: hypokalemia Dextrose/Lactated Ringer's (Dextrose 5%-Lactated Ringers) 1,000 mls @ 75 mls/hr IV .[id number] [facility] Last Admin: 02/10/22 12:41 Dose: Not Given Documented by: Vancomycin HCl 1,500 mg/ (Sodium Chloride) 500 mls @ 333.3 mls/hr IV Q12H [facility] Last Infusion: 02/10/22 11:35 Dose: Infused Documented by: Lorazepam (Lorazepam 1 Mg Tablet) 1 mg PO BIDP PRN PRN Reason: Anxiety Last Admin: 02/06/22 20:17 Dose: 1 mg Documented by: Magnesium Citrate (Magnesium Citrate 300 Ml Oral.Becky) 300 ml PO DAILYP PRN PRN Reason: Constipation Magnesium Hydroxide (Magnesium Hydroxide 30 Ml Oral.Susp) 30 ml PO BIDP PRN PRN Reason: Constipation Methocarbamol (Methocarbamol 750 Mg Tablet) 750 mg PO Q6HP PRN PRN Reason: Muscle Spasm Last Admin: 02/04/22 17:30 Dose: 750 mg Documented by: Morphine Sulfate (Morphine 4 Mg/Ml Vial) 0 mg IV Q1HP PRN; Protocol PRN Reason: Per Pain Protocol Last Admin: 02/03/22 20:42 Dose: 4 mg Documented by: Olanzapine (Olanzapine 5 Mg Tablet) 7.5 mg PO HS [facility] Last Admin: 02/09/22 20:07 Dose: 7.5 mg Documented by: Ondansetron HCl (Ondansetron 4 Mg/2 Ml Vial) 4 mg IV Q4HP PRN PRN Reason: Nausea And Vomiting Last Admin: 02/07/22 08:11 Dose: 4 mg Documented by: Ondansetron HCl (Ondansetron 4 Mg Odt Tablet) 4 mg SL Q4HP PRN; Protocol PRN Reason: Nausea And Vomiting Pantoprazole Sodium (Pantoprazole 40 Mg Vial) 40 mg IV BIDAC [facility] Last Admin: 02/10/22 08:21 Dose: 40 mg Documented by: Budesonide- Formoterol [ Symbicort] 10.2 Gm Hfa Inhaler 2 dose INH BID [facility] Last Admin: 02/10/22 08:10 Dose: Not Given Documented by: Diclofenac Sodium 1 (% Gel) 2 dose TOPICAL TID [facility] Last Admin: 02/10/22 14:03 Dose: Not Given Documented by: Polyethylene Glycol (Polyethylene Glycol 3350 17 Gm Packet) 17 gm PO BID [facility] Last Admin: 02/10/22 08:09 Dose: Not Given Documented by: Polyethylene Glycol (Polyethylene Glycol 3350 17 Gm Packet) 17 gm PO DAILYP PRN PRN Reason: Constipation Potassium Chloride (Potassium Chloride 10 Meq Tablet) 10 meq PO BIDCC [facility] Last Admin: 02/10/22 08:23 Dose: 10 meq Documented by: Potassium Chloride (Potassium Chloride 20 Meq Tablet) 40 meq PO UD PRN PRN Reason: Potssium is 3-3.5 Last Admin: 02/09/22 15:03 Dose: 40 meq Documented by: Potassium Chloride (Potassium Chloride 20 Meq Tablet) 40 meq PO UD PRN PRN Reason: Potassium < 3 Prazosin HCl (Prazosin 1 Mg Capsule) 2 mg PO BID [facility] Last Admin: 02/10/22 08:23 Dose: 2 mg Documented by: Senna (Sennosides 1 Tablet) 1 tab PO BID [facility] Last Admin: 02/10/22 08:17 Dose: Not Given Documented by: Simvastatin (Simvastatin 20 Mg Tablet) 20 mg PO HS [facility] Last Admin: 02/09/22 20:09 Dose: 20 mg Documented by: Sodium Biphosphate/Sodium Phosphate (Fleets Adult Enema) 1 dose ID Q3-4DAYS PRN PRN Reason: Constipation Sodium Chloride (0.9 % Sodium Chloride 10 Ml Syringe) 10 ml IV Q8 [facility] Last Admin: 02/10/22 14:04 Dose: 10 ml Documented by: Throat Lozenges (Benzocaine/Menthol 1 Lozenge) 1 lozenge PO PRN PRN PRN Reason: Sore Throat Tiotropium Midpines (Tiotropium Midpines 18 Mcg Inhalant) 18 mcg INH DAILY [facility] Last Admin: 02/10/22 08:10 Dose: Not Given Documented by: Trazodone HCl (Trazodone Hcl 50 Mg Tablet) 50 mg PO HSP PRN PRN Reason: Insomnia Last Admin: 02/08/22 21:47 Dose: 50 mg Documented by: Vancomycin HCl (Vancomycin Per Pharmacy) 1 order IV UD [facility]; Protocol A/P Narrative A/P Narrative: 1. Closed left hip fracture: s/p ORIF by orthopedic surgeon Dr. Payan 02/03/22; post operative care as per surgical team including pain control No weight bearing on LLE SCDs; hold Fondaparinux for GI bleeding 2. h/o dementia: Amantadine Need to clarify if [facility] can take care of his physical rehab needs or if we need to make arrangement for physical rehab placement 3. h/o CAD: Continue Coreg Continue Simvastatin 4. Essential HTN: Currently borderline hypotensive Continue Coreg Continue Lasix Hold Losartan for soft blood pressure 5. Mixed dyslipidemia: Continue Simvastatin 6. h/o COPD: Supplemental oxygen therapy titrate to achieve spo2>=88%, currently on room air Symbicort Spiriva DuoNEB NEB PRN wheezing Chest X ray 7. ADRIANE on CPAP: Continue CPAP at night while sleeping 8. Fever: Blood culture, no growth to date Urine culture, no growth to date Chest X ray showing moderate cardiomyopathy and stable COPD Zosyn as empiric antibiotics Add Vancomycin to broaden the antibiotic spectrum coverage Tylenol PRN fever 9. Upper GI bleeding: EGD on 02/07 found gastritis and esophagitis Daily cbc w/ auto diff to trend H/H NPO for lethargy Protonix IV BID hold Fondaparinux for now, resume at time of hospital discharge 10. Acute metabolic encephalopathy His extremities are warm and well perfused, which is reassuring for cardiac output. Also vital signs are stable. This ensures optimal cardiopulmonary system performance. Ordered CT of the head without contrast to rule out new stroke/bleed Ordered ultrasound of the liver to assess for liver function-especially co nsidering elevated LFTs. Would like to ensure he does not have underlying cirrhosis that could have caused the GI bleed Ordered ammonia level. Agree with other physicians note that his prognosis remains extremely guarded. Continue empiric antibiotic coverage. Chest x-ray ruled out pneumonia. Blood cultures have been negative. GI ppx: Protonix IV DVT ppx: SCDs; hold Fondaparinux for now, resume at time of hospital discharge Code status: DNI DNR Prognosis: extremely guarded Disposition: inpatient med surg; pending SNF placement Time Spent With Patient Time: Total time spent is greater than 50% in coordination of care (as documented) at patient's floor/unit and/or counseling patient: Total time spent with greater than 50% in coordination of care (as documented) at patient's floor/unit and/or counseling patient:: 35 - 50 minutes QUALITY VTE Deep Vein Thrombosis/Pulmonary Embolism Present on Admission: No
[2022-02-10] MEDS: POTASSIUM CHLORIDE 20 MEQ TABLET PO PRN (15:45)
[2022-02-10] MEDS: OLANZapine 5 MG TABLET PO SCH (20:30)
[2022-02-10] MEDS: SIMVASTATIN 20 MG TABLET PO SCH (20:31)
[2022-02-11] MEDS: 0.9 % SODIUM CHLORIDE 10 ML SYRINGE IV SCH ×3 (05:29→20:33)
[2022-02-11] MEDS: PIPERACILLIN SODIUM/TAZOBACTAM 3.375 GM in DEXTROSE 5% IN WATER 50 ML IV SCH ×3 (05:29→17:01)
[2022-02-11] MEDS: DEXTROSE 5%-LR 1,000 ML IV SCH ×3 (05:29→21:50)
[2022-02-11] MEDS: PANTOPRAZOLE 40 MG VIAL IV SCH (06:52)
[2022-02-11] MEDS: POLYETHYLENE GLYCOL 3350 17 GM PACKET PO SCH ×2 (08:16→20:38)
[2022-02-11] MEDS: BUDESONIDE FORMOTEROL INH SCH ×2 (08:16→20:38)
[2022-02-11] MEDS: DOCUSATE SODIUM 100 MG CAPSULE PO SCH ×2 (08:16→20:37)
[2022-02-11] MEDS: TIOTROPIUM BROMIDE 18 MCG INHALANT INH SCH (08:17)
[2022-02-11] MEDS: SENNOSIDES 1 TABLET PO SCH ×2 (08:17→20:38)
[2022-02-11] MEDS: DICLOFENAC SODIUM 1% TOPICAL SCH ×3 (08:17→20:38)
[2022-02-11] MEDS: VANCOMYCIN 1,500 MG in 0.9 % SODIUM CHLORIDE 500 ML IV SCH ×2 (08:42→20:33)
--- NOTE | 2022-02-11 09:00 | Internal Med Progress Note ---
SUBJECTIVE Subjective Patient information: Note initiated : 02/11/22 at 8:59 am Service Date, if different from initiated Date: [] Patient: Isrrael Carrasco 71 y/o M admitted on 02/01/22 for left hip pain/weakness. Chief Complaint: [] Principal diagnosis: s/p left hip periposthetic fracture Interval history: Patient recently left hip replacement on January 17 and on had a fall resulting in a nondisplaced fracture below the stem. He has had difficulty ambulating increasing pain since that time and had a repeat fall yesterday. He is now unable to bear weight as much more pain. Past medical history cleared COPD on 2 L nasal cannula. Work-up in the ED revealed an oblique displaced fracture of left hip. Dr. Payan was contacted. Patient is a smoker about half pack per day but wants to quit now. Sense of medication for parkinsonism or drug-induced extrapyramidal symptoms but not sure why. Reviewed imaging and ekg 02/02 No overnight event or new complaints. Surgery will be till tomorrow because her waiting for surgical equipment. Patient is wheezy a little bit but states she is always wheezy. Debilitated will likely need SNF. Chronic oxygen use. 02/03 Awaiting surgery today. Does seem to have some chronic tachycardia looking at old trends. 02/04: s/p ORIF last night by Dr. Payan. c/o 10/10 left lateral hip pain. No bowel movement yet since surgery. Denies any shortness of breath. Currently on room air. Pending SNF placement once cleared by surgery. 02/05: Fever with Tmax 39.3 last night. Blood and urine cultures no growth to date. Lethargic. Denies left hip pain. Denies any shortness of breath. Currently on room air. Pending SNF placement once clinically cleared. 02/06: Fever with Tmax 38.0 this morning. Blood and urine cultures no growth to date. Way more awake and alert this morning compared to yesterday. Denies left hip pain. Good appetite. Denies any shortness of breath. Currently on room air. Denies any fever or chills. Pending SNF placement once clinically cleared. 02/07: Coffee ground emesis this morning. Stable H/H. Afebrile overnight. Denies any subjective fever or chills. Denies any epigastric abdominal pain. Denies lightheadedness. Denies shortness of breath. Denies hip pain. NPO. Consult general surgeon Dr. Castorena for potential EGD. Hold anticoagulants. Continue Zos yn as empiric antibiotics for recent leukocytosis and fever. All cultures no growth to date. 02/08: Status post EGD by Dr. Castorena general surgeons on February 07, 2022, which found gastroparesis, gastritis, and esophagitis. H&H stable this morning relatively yesterday. Leukocytosis with WBC 18.6. No more episode of hematemesis or bloody or black stool. Resumed dysphagia diet. Denies any subjective fever or chills. Denies any epigastric abdominal pain. Denies lightheadedness. Denies shortness of breath. Denies hip pain. Continue Zosyn as empiric antibiotics for recent leukocytosis and fever. All cultures no growth to date. 02/09: Lethargic. Leukocytosis worsening WBC 18.6-->20.5. Blood cultures no growth to date. Will broaden antibiotics therapy by adding Vancomycin in addition to Zosyn. Prognosis extremely guarded 02/10: Continues to be lethargic. Hard to arouse with voice or touch. WBC remained at 20k.Blood cultures no growth to date Cont Vanc and Zosyn. Prognosis guarded. Ordered CT Head, Ammonia and Liver US today to further workup cause of his lethargy. Pertinent ROS: Unable to obtaindue to lethargy 02/11-appears much better today awake, alert. Is able to engage in normal conv ersation. Reports he is feeling much better. Per RN report, he ate most of his dinner last night. Still awaiting CT head, liver ultrasound. Has some wheezing bilaterally. Ordered albuterol nebulizer. Constitutional Vitals: Vital Signs Temp Pulse Resp BP Pulse Ox 98 F 100 H 18 136/75 91 02/11/22 07:37 02/11/22 07:37 02/11/22 07:37 02/11/22 07:37 02/11/22 07:37 Period Temp Pulse Resp BP Sys/[place] Pulse Ox Last 24 Hr 97.1 F-98.3 F 82-100 16-20 107-138/63-89 91-94 Intake and Output 02/10/22 02/11/22 02/11/22 21:59 05:59 13:59 Intake Total 876 2029 50 Output Total 229 2 1 Balance 2027 49 Weight 109.089 kg Intake & Output: Intake & Output 02/10/22 02/11/22 02/11/22 21:59 05:59 13:59 Intake Total 876 2029 50 Output Total 229 2 1 Balance 647 2027 49 Weight 109.089 kg Intake: IV 50 1550 50 Dextrose 5%-Lactated Ringers 1, 1000 000 ml @ 75 mls/hr IV .[id number] SUE Rx#:[id number] Zosyn 3.375 gm In Dextrose 5% 50 50 50 in Water 50 ml @ 100 mls/hr IV Q6H SUE Rx#:[id number] Vancomycin 1,500 mg In Sodium 500 Chloride 0.9% 500 ml @ 333.3 mls/hr IV Q12H SUE Rx#: [id number] Oral [id number] 480 Output: Void Amount 225 # of times incontinent of urine 4 2 1 Other: Meal Dinner Percent of Meal Consumed 50% Feeding Ability Needs Supervision Stool Size Copious Moderate Stool Color Brown Stool Consistency Soft # Voids 1 # Bowel Movements 1 # of times incontinent of 1 1 Bowels General appearance: average body habitus, cooperative and no acute distress Head Head exam: Present atraumatic and normocephalic Eye Eye exam: Present normal appearance Respiratory Respiratory exam: Present wheezes; Absent respiratory distress Cardiovascular Cardiovascular exam: Present normal rate and rhythm and RRR; Absent bradycardia, gallop, systolic murmur or tachycardia GI/Abdominal GI/Abdominal exam: Present soft Neurological Exam Neurological exam: Present alert and oriented X3; Absent altered or motor sensory deficit OBJ DATA Labs CBC & Chem 7: 02/10/22 05:10 02/10/22 05:10 Labs: Abnormal Lab Results 02/10/22 02/10/22 02/09/22 05:10 05:10 05:25 WBC 20.1 H 20.5 H RBC 2.76 L 2.82 L Hgb 7.9 L 8.1 L Hct 26.2 L 26.0 L MCHC 30.2 L Neut % (Auto) 81.5 H 83.0 H Lymph % (Auto) 7.3 L 7.0 L Lymph # (Auto) 1.46 L 1.44 L [place] # (Auto) 1.73 H 1.79 H Absolute Neutrophils 16.40 H 17.03 H Potassium 3.0 L Glucose 116 H AST 222 H ALT 338 H Alkaline Phosphatase 172 H Total Protein 5.5 L Albumin 2.3 L Albumin/Globulin Ratio 0.7 L 02/09/22 05:00 WBC RBC Hgb Hct MCHC Neut % (Auto) Lymph % (Auto) Lymph # (Auto) [place] # (Auto) Absolute Neutrophils Potassium 3.1 L Glucose 113 H AST 264 H ALT 322 H Alkaline Phosphatase 136 H Total Protein 5.6 L Albumin 2.7 L Albumin/Globulin Ratio 0.9 L Meds: Medications Acetaminophen (Acetaminophen 325 Mg Tablet) 650 mg PO Q6HP PRN; Protocol PRN Reason: Per Pain Protocol/Fever > 101 Last Admin: 02/06/22 15:57 Dose: 650 mg Documented by: Hydrocodone Bitart/Acetaminophen (Hydrocodone/Apap 10/325mg Tablet) 0 tab PO Q4HP PRN; Protocol PRN Reason: Per Pain Protocol Last Admin: 02/06/22 20:17 Dose: 2 tab Documented by: Albuterol/Ipratropium (Ipratropium/Albuterol 3 Ml Ampul.Neb) 3 ml NEB Q4HP PRN PRN Reason: Shortness Of Breath Amantadine HCl (Amantadine Hcl 100 Mg Capsule) 100 mg PO BID [facility] Last Admin: 02/10/22 20:32 Dose: 100 mg Documented by: Benztropine Mesylate (Benztropine 1 Mg Tablet) 2 mg PO BID [facility] Last Admin: 02/10/22 20:30 Dose: 2 mg Documented by: Bisacodyl (Bisacodyl 10 Mg Supp.Rect) 10 mg UT Q2-3DAYS PRN PRN Reason: Constipation Calcium Carbonate/Glycine (Calcium Carbonate 500 Mg Tab.Chew) 1,000 mg CHEWED Q4HP PRN PRN Reason: Indigestion Calcium Carbonate/Glycine (Calcium (Oyster Shell) 500 Mg Tablet) 500 mg PO BID [facility] Last Admin: 02/10/22 20:31 Dose: 500 mg Documented by: Carvedilol ([facility]il[facility] 6.25 Mg Tablet) [facility] Last Admin: 02/10/22 17:18 Dose: 6.25 mg Documented by: Cyclobenzaprine HCl (Cyclobenzaprine 10 Mg Tablet) 10 mg PO TIDP PRN PRN Reason: Muscle Spasm Docusate Sodium (Docusate Sodium 100 Mg Capsule) 100 mg PO BID [facility] Last Admin: 02/11/22 08:16 Dose: Not Given Documented by: Furosemide (Furosemide 20 Mg Tablet) 40 mg PO DAILY [facility] Last Admin: 02/10/22 08:25 Dose: 40 mg Documented by: Potassium Chloride 40 meq/ (Dextrose) 520 mls @ 130 mls/hr IV UD PRN PRN Reason: Potassium < 3 Magnesium Sulfate (Magnesium Sulfate) 2 gm in 50 mls @ 50 mls/hr IV UD PRN PRN Reason: Magnesium </= 1.6 Acetaminophen (Ofirmev) 650 mg in 65 mls @ 130 mls/hr IV Q6HP PRN; Protocol PRN Reason: PAIN/FEVER > 101 Last Infusion: 02/04/22 23:15 Dose: Infused Documented by: Piperacillin Sod/Tazobactam (Sod 3.375 gm/ Dextrose) 50 mls @ 100 mls/hr IV Q6H [facility]; Protocol Last Infusion: 02/11/22 06:10 Dose: Infused Documented by: Potassium Chloride 20 meq/ (Dextrose) 260 mls @ 130 mls/hr IV UD PRN PRN Reason: hypokalemia Dextrose/Lactated Ringer's (Dextrose 5%-Lactated Ringers) 1,000 mls @ 75 mls/hr IV .[id number] [facility] Last Admin: 02/11/22 05:29 Dose: 75 mls/hr Documented by: Vancomycin HCl 1,500 mg/ (Sodium Chloride) 500 mls @ 333.3 mls/hr IV Q12H [facility] Last Admin: 02/11/22 08:42 Dose: 333.3 mls/hr Documented by: Lorazepam (Lorazepam 1 Mg Tablet) 1 mg PO BIDP PRN PRN Reason: Anxiety Last Admin: 02/06/22 20:17 Dose: 1 mg Documented by: Magnesium Citrate (Magnesium Citrate 300 Ml Oral.Becky) 300 ml PO DAILYP PRN PRN Reason: Constipation Magnesium Hydroxide (Magnesium Hydroxide 30 Ml Oral.Susp) 30 ml PO BIDP PRN PRN Reason: Constipation Methocarbamol (Methocarbamol 750 Mg Tablet) 750 mg PO Q6HP PRN PRN Reason: Muscle Spasm Last Admin: 02/04/22 17:30 Dose: 750 mg Documented by: Morphine Sulfate (Morphine 4 Mg/Ml Vial) 0 mg IV Q1HP PRN; Protocol PRN Reason: Per Pain Protocol Last Admin: 02/03/22 20:42 Dose: 4 mg Documented by: Olanzapine (Olanzapine 5 Mg Tablet) 7.5 mg PO HS [facility] Last Admin: 02/10/22 20:30 Dose: 7.5 mg Documented by: Ondansetron HCl (Ondansetron 4 Mg/2 Ml Vial) 4 mg IV Q4HP PRN PRN Reason: Nausea And Vomiting Last Admin: 02/07/22 08:11 Dose: 4 mg Documented by: Ondansetron HCl (Ondansetron 4 Mg Odt Tablet) 4 mg SL Q4HP PRN; Protocol PRN Reason: Nausea And Vomiting Pantoprazole Sodium (Pantoprazole 40 Mg Vial) 40 mg IV BIDAC [facility] Last Admin: 02/11/22 06:52 Dose: 40 mg Documented by: Budesonide- Formoterol [ Symbicort] 10.2 Gm Hfa Inhaler 2 dose INH BID [facility] Last Admin: 02/11/22 08:16 Dose: Not Given Documented by: Diclofenac Sodium 1 (% Gel) 2 dose TOPICAL TID [facility] Last Admin: 02/11/22 08:17 Dose: Not Given Documented by: Polyethylene Glycol (Polyethylene Glycol 3350 17 Gm Packet) 17 gm PO BID [facility] Last Admin: 02/11/22 08:16 Dose: Not Given Documented by: Polyethylene Glycol (Polyethylene Glycol 3350 17 Gm Packet) 17 gm PO DAILYP PRN PRN Reason: Constipation Potassium Chloride (Potassium Chloride 10 Meq Tablet) 10 meq PO BIDCC [facility] Last Admin: 02/10/22 17:18 Dose: 10 meq Documented by: Potassium Chloride (Potassium Chloride 20 Meq Tablet) 40 meq PO UD PRN PRN Reason: Potssium is 3-3.5 Last Admin: 02/10/22 15:45 Dose: 40 meq Documented by: Potassium Chloride (Potassium Chloride 20 Meq Tablet) 40 meq PO UD PRN PRN Reason: Potassium < 3 Prazosin HCl (Prazosin 1 Mg Capsule) 2 mg PO BID [facility] Last Admin: 02/10/22 20:31 Dose: 2 mg Documented by: Senna (Sennosides 1 Tablet) 1 tab PO BID [facility] Last Admin: 02/11/22 08:17 Dose: Not Given Documented by: Simvastatin (Simvastatin 20 Mg Tablet) 20 mg PO HS [facility] Last Admin: 02/10/22 20:31 Dose: 20 mg Documented by: Sodium Biphosphate/Sodium Phosphate (Fleets Adult Enema) 1 dose UT Q3-4DAYS PRN PRN Reason: Constipation Sodium Chloride (0.9 % Sodium Chloride 10 Ml Syringe) 10 ml IV Q8 [facility] Last Admin: 02/11/22 05:29 Dose: 10 ml Documented by: Throat Lozenges (Benzocaine/Menthol 1 Lozenge) 1 lozenge PO PRN PRN PRN Reason: Sore Throat Tiotropium [place] (Tiotropium [place] 18 Mcg Inhalant) 18 mcg INH DAILY [facility] Last Admin: 02/11/22 08:17 Dose: Not Given Documented by: Trazodone HCl (Trazodone Hcl 50 Mg Tablet) 50 mg PO HSP PRN PRN Reason: Insomnia Last Admin: 02/08/22 21:47 Dose: 50 mg Documented by: Vancomycin HCl (Vancomycin Per Pharmacy) 1 order IV UD [facility]; Protocol Impressions Impression: Last set of blood cultures on February 04 have been no growth to date. A/P Narrative A/P Narrative: 1. Closed left hip fracture: s/p ORIF by orthopedic surgeon Dr. Payan 02/03/22; post operative care as per surgical team including pain control No weight bearing on LLE. Consulted PT now that he is awake and alert. SCDs; hold Fondaparinux for GI bleeding 2. h/o dementia: Amantadine Need to clarify if [facility] can take care of his physical rehab needs or if we need to make arrangement for physical rehab placement 3. h/o CAD: Continue Coreg Continue Simvastatin 4. Essential HTN: Currently borderline hypotensive Continue Coreg Continue Lasix Hold Losartan for soft blood pressure 5. Mixed dyslipidemia: Continue Simvastatin 6. h/o COPD: Supplemental oxygen therapy titrate to achieve spo2>=88%, currently on room air Symbicort Spiriva DuoNEB NEB PRN wheezing. Scheduled albuterol every 6 hours for now. He has bilateral wheezing. Chest X ray 7. ADRIANE on CPAP: Continue CPAP at night while sleeping 8. Fever: Blood culture, no growth to date Urine culture, no growth to date Chest X ray showing moderate cardiomyopathy and stable COPD Zosyn as empiric antibiotics Add Vancomycin to broaden the antibiotic spectrum coverage. Will stop antibiotics in a few days if he remains afebrile. Improving overall. Tylenol PRN fever 9. Upper GI bleeding: EGD on 02/07 found gastritis and esophagitis Daily cbc w/ auto diff to trend H/H Ordered dysphagia level 4 diet . Protonix IV BID-> switch to 40 mg twice daily orally. May benefit from a repeat EGD around April 09 to follow-up on resolution of gastritis/esophagitis hold Fondaparinux for now, resume at time of hospital discharge 10. Acute metabolic encephalopathy-improving His extremities are warm and well perfused, which is reassuring for cardiac output. Also vital signs are stable. This ensures optimal cardiopulmonary system performance. Appears much better today, compared with on February 10. Ordered CT of the head without contrast to rule out new stroke/bleed. There is some delay in performing the examination since the CT scanner machine has a breakdown Ordered ultrasound of the liver to assess for liver function-especially considering elevated LFTs. Would like to ensure he does not have underlying cirrhosis that could have caused the GI bleed Normal ammonia level. Stopped Flexeril. Advise caution with narcotic medications as well. Agree with other physicians note that his prognosis remains extremely guarded. Continue empiric antibiotic coverage. Chest x-ray ruled out pneumonia. Blood cultures have been negative. GI ppx: Protonix IV DVT ppx: SCDs; hold Fondaparinux for now, resume at time of hospital discharge Code status: DNI DNR Prognosis: extremely guarded Disposition: inpatient med surg; pending SNF placement Time Spent With Patient Time: Total time spent is greater than 50% in coordination of care (as documented) at patient's floor/unit and/or counseling patient: QUALITY VTE Deep Vein Thrombosis/Pulmonary Embolism Present on Admission: No
[2022-02-11] MEDS ORDERED: HYDROcodone/APAP 5/325MG TABLET PO PRN (09:11)
--- NOTE | 2022-02-11 09:42 | Cat Scan Report ---
History: Increased lethargy, prior history of stroke, anticoagulated TECHNIQUE: The brain was imaged without contrast in axial plane at 2.5 mm intervals. Sagittal and coronal reformats were created. The radiation exposure was limited using dose reduction technology. FINDINGS: There are normal age-related degenerative changes with mild atrophy both above and below the tentorium. The greatest involvement is around the sylvian fissures. There are subtle areas of decreased attenuation in the white matter in the frontal lobes consistent with age-related ischemia or degeneration. There is no evidence of an infarct. No hemorrhage or mass effect are present. The ventricles are normal in size. There is no abnormal extra-axial fluid collection. Bone windows show no skull lesion. Mild mucosal thickening is seen along the shaw of many of the ethmoid air cells bilaterally, right side of the sphenoid and right maxillary sinus. Comparison with the prior head CT angiogram performed on 10/15/20 shows little change in appearance of the brain. IMPRESSION: Stable age-related degenerative changes No acute abnormality within the brain Mild sinusitis Interpreted and Authenticated by: Maynor Sawyer 02/11/22
[2022-02-11] MEDS: PRAZOSIN 1 MG CAPSULE PO SCH ×2 (10:16→20:34)
[2022-02-11] MEDS: POTASSIUM CHLORIDE 10 MEQ TABLET PO SCH ×2 (10:16→16:29)
[2022-02-11] MEDS: FUROSEMIDE 20 MG TABLET PO SCH (10:16)
[2022-02-11] MEDS: BENZTROPINE 1 MG TABLET PO SCH ×2 (10:16→20:34)
[2022-02-11] MEDS: AMANTADINE HCL 100 MG CAPSULE PO SCH ×2 (10:16→20:35)
[2022-02-11] MEDS: CARVEDILOL 6.25 MG TABLET PO SCH ×2 (10:16→16:29)
[2022-02-11] MEDS: CALCIUM (OYSTER SHELL) 500 MG TABLET PO SCH ×2 (10:16→20:34)
[2022-02-11] MEDS: ALBUTEROL SULFATE 2.5 MG/3 ML NEBULIZER NEB SCH ×2 (12:59→19:15)
--- NOTE | 2022-02-11 15:05 | Ultrasound Report ---
History: Increased confusion, suspect encephalopathy FINDINGS: The liver is normal in size and homogeneous. There is no evidence of cirrhosis or mass. Doppler shows normal blood flow in the hepatic and portal veins. No ascites is present. The pancreas is echogenic which may be due to fatty and fixation. There is no evidence of pancreatic mass or acute pancreatitis. Within the lumen of the gallbladder, adherent to the shaw there are two round solid noncalcified nodules. They did not move when the patient was rolled. One measures 7 mm and the other 10 mm in size. Gallbladder wall is 1 mm in thickness and there is no tenderness while scanning over the gallbladder. Common bile duct measures up to 6 mm which is within normal limits. IMPRESSION: Normal liver Two polyps within the gallbladder Interpreted and Authenticated by: Maynor Sawyer 02/11/22
[2022-02-11] MEDS: PANTOPRAZOLE 40 MG PACKET PO SCH (16:29)
[2022-02-11] MEDS: OLANZapine 5 MG TABLET PO SCH (20:34)
[2022-02-11] MEDS: SIMVASTATIN 20 MG TABLET PO SCH (20:34)
[2022-02-12] MEDS: PIPERACILLIN SODIUM/TAZOBACTAM 3.375 GM in DEXTROSE 5% IN WATER 50 ML IV SCH ×4 (00:01→17:05)
[2022-02-12] MEDS: ALBUTEROL SULFATE 2.5 MG/3 ML NEBULIZER NEB SCH ×4 (00:02→19:15)
[2022-02-12] MEDS: traZODone HCL 50 MG TABLET PO PRN ×2 (01:44→21:49)
[2022-02-12] MEDS: ACETAMINOPHEN 325 MG TABLET PO PRN (03:01)
[2022-02-12] MEDS: DEXTROSE 5%-LR 1,000 ML IV SCH ×3 (04:16→17:08)
[2022-02-12] MEDS: 0.9 % SODIUM CHLORIDE 10 ML SYRINGE IV SCH ×3 (05:53→21:52)
[2022-02-12] MEDS: PANTOPRAZOLE 40 MG PACKET PO SCH ×2 (07:26→16:30)
[2022-02-12] MEDS: DOCUSATE SODIUM 100 MG CAPSULE PO SCH ×2 (08:09→21:51)
[2022-02-12] MEDS: BUDESONIDE FORMOTEROL INH SCH ×2 (08:09→21:51)
[2022-02-12] MEDS: POLYETHYLENE GLYCOL 3350 17 GM PACKET PO SCH ×2 (08:09→21:51)
[2022-02-12] MEDS: TIOTROPIUM BROMIDE 18 MCG INHALANT INH SCH (08:10)
[2022-02-12] MEDS: SENNOSIDES 1 TABLET PO SCH ×2 (08:10→21:50)
[2022-02-12] MEDS: DICLOFENAC SODIUM 1% TOPICAL SCH ×3 (08:10→21:51)
[2022-02-12] MEDS: FUROSEMIDE 20 MG TABLET PO SCH (08:16)
[2022-02-12] MEDS: POTASSIUM CHLORIDE 10 MEQ TABLET PO SCH ×2 (08:16→16:29)
[2022-02-12] MEDS: PRAZOSIN 1 MG CAPSULE PO SCH ×2 (08:17→21:48)
[2022-02-12] MEDS: AMANTADINE HCL 100 MG CAPSULE PO SCH ×2 (08:17→21:58)
[2022-02-12] MEDS: BENZTROPINE 1 MG TABLET PO SCH ×2 (08:17→21:49)
[2022-02-12] MEDS: CALCIUM (OYSTER SHELL) 500 MG TABLET PO SCH ×2 (08:17→21:49)
[2022-02-12] MEDS: CARVEDILOL 6.25 MG TABLET PO SCH ×2 (08:17→16:30)
[2022-02-12 09:01] LABS: Blood Urea Nitrogen 8 mg/dL (8-23); Calcium 9.3 mg/dL (8.6-10.4); Carbon Dioxide 22 mmol/L (22-30); Chloride 104 mmol/L (96-108); Glomerular Filtration Rate 85; Glucose 131 mg/dL (70-105)
[2022-02-12] MEDS: POTASSIUM CHLORIDE 20 MEQ TABLET PO PRN (12:02)
--- NOTE | 2022-02-12 14:05 | Internal Med Progress Note ---
SUBJECTIVE Subjective Patient information: Note initiated : 02/12/22 at 2:02 pm Service Date, if different from initiated Date: [] Patient: Isrrael Carrasco 71 y/o M admitted on 02/01/22 for left hip pain/weakness. Chief Complaint: [] Principal diagnosis: s/p left hip periposthetic fracture Interval history: Patient recently left hip replacement on January 17 and on had a fall resulting in a nondisplaced fracture below the stem. He has had difficulty ambulating increasing pain since that time and had a repeat fall yesterday. He is now unable to bear weight as much more pain. Past medical history cleared COPD on 2 L nasal cannula. Work-up in the ED revealed an oblique displaced fracture of left hip. Dr. Payan was contacted. Patient is a smoker about half pack per day but wants to quit now. Sense of medication for parkinsonism or drug-induced extrapyramidal symptoms but not sure why. Reviewed imaging and ekg 02/02 No overnight event or new complaints. Surgery will be till tomorrow because her waiting for surgical equipment. Patient is wheezy a little bit but states she is always wheezy. Debilitated will likely need SNF. Chronic oxygen use. 02/03 Awaiting surgery today. Does seem to have some chronic tachycardia looking at old trends. 02/04: s/p ORIF last night by Dr. Payan. c/o 10/10 left lateral hip pain. No bowel movement yet since surgery. Denies any shortness of breath. Currently on room air. Pending SNF placement once cleared by surgery. 02/05: Fever with Tmax 39.3 last night. Blood and urine cultures no growth to date. Lethargic. Denies left hip pain. Denies any shortness of breath. Currently on room air. Pending SNF placement once clinically cleared. 02/06: Fever with Tmax 38.0 this morning. Blood and urine cultures no growth to date. Way more awake and alert this morning compared to yesterday. Denies left hip pain. Good appetite. Denies any shortness of breath. Currently on room air. Denies any fever or chills. Pending SNF placement once clinically cleared. 02/07: Coffee ground emesis this morning. Stable H/H. Afebrile overnight. Denies any subjective fever or chills. Denies any epigastric abdominal pain. Denies lightheadedness. Denies shortness of breath. Denies hip pain. NPO. Consult general surgeon Dr. Castorena for potential EGD. Hold anticoagulants. Continue Zos yn as empiric antibiotics for recent leukocytosis and fever. All cultures no growth to date. 02/08: Status post EGD by Dr. Castorena general surgeons on February 07, 2022, which found gastroparesis, gastritis, and esophagitis. H&H stable this morning relatively yesterday. Leukocytosis with WBC 18.6. No more episode of hematemesis or bloody or black stool. Resumed dysphagia diet. Denies any subjective fever or chills. Denies any epigastric abdominal pain. Denies lightheadedness. Denies shortness of breath. Denies hip pain. Continue Zosyn as empiric antibiotics for recent leukocytosis and fever. All cultures no growth to date. 02/09: Lethargic. Leukocytosis worsening WBC 18.6-->20.5. Blood cultures no growth to date. Will broaden antibiotics therapy by adding Vancomycin in addition to Zosyn. Prognosis extremely guarded 02/10: Continues to be lethargic. Hard to arouse with voice or touch. WBC remained at 20k.Blood cultures no growth to date Cont Vanc and Zosyn. Prognosis guarded. Ordered CT Head, Ammonia and Liver US today to further workup cause of his lethargy. Pertinent ROS: Unable to obtaindue to lethargy 02/11-appears much better today awake, alert. Is able to engage in normal conv ersation. Reports he is feeling much better. Per RN report, he ate most of his dinner last night. Still awaiting CT head, liver ultrasound. Has some wheezing bilaterally. Ordered albuterol nebulizer. 02/12- Daughter at bedside. Pt denies any new sx. Awaiting placement. He is alert and awake. Appears to be at his baseline. Needs SNF and daughter agrees on SNF placement. Constitutional Vitals: Vital Signs Temp Pulse Resp BP Pulse Ox 97.9 F 90 20 109/87 94 02/12/22 12:00 02/12/22 13:10 02/12/22 13:10 02/12/22 12:00 02/12/22 13:10 Period Temp Pulse Resp BP Sys/[place] Pulse Ox Last 24 Hr 97.3 F-98.2 F 82-103 16-24 107-145/62-87 92-98 Intake and Output 02/12/22 02/12/22 02/12/22 05:59 13:59 21:59 Intake Total 850 1454 Output Total 827 151 Balance 850 627 -151 Intake & Output: Intake & Output 02/12/22 02/12/22 02/12/22 05:59 13:59 21:59 Intake Total 850 1454 Output Total 827 151 Balance 850 627 151 Intake: Nourishment/Supplement quantity 236 (ml) IV 50 1100 Dextrose 5%-Lactated Ringers 1, 1000 000 ml @ 75 mls/hr IV .[id number] SUE Rx#:[id number] Zosyn 3.375 gm In Dextrose 5% 50 100 in Water 50 ml @ 100 mls/hr IV Q6H SUE Rx#:[id number] Oral 800 118 Output: Void Amount 826 150 # of times incontinent of urine 1 1 Other: Meal Lunch Percent of Meal Consumed 50% Feeding Ability Independent Nourishment/Supplement name Ensure Enlive Urine Appearance Clear Clear Urine Color Pale Bright Yellow Urine Odor Normal Stool Size Smear Large Stool Color Brown Brown Stool Consistency Soft Soft # Voids 1 1 1 # Bowel Movements 1 1 # of times incontinent of 1 1 Bowels General appearance: average body habitus, cooperative and no acute distress Head Head exam: Present atraumatic and normocephalic Eye Eye exam: Present normal appearance Respiratory Respiratory exam: Present normal respiratory exam and CTAB; Absent accessory muscle use, decreased breath sounds or respiratory distress Cardiovascular Cardiovascular exam: Present normal rate and rhythm and RRR; Absent bradycardia, gallop, systolic murmur or tachycardia GI/Abdominal GI/Abdominal exam: Present soft Neurological Exam Neurological exam: Present alert and oriented X3; Absent altered or motor sensory deficit OBJ DATA Labs CBC & Chem 7: 02/10/22 05:10 02/12/22 08:06 Labs: Abnormal Lab Results 02/12/22 02/10/22 02/10/22 08:06 05:10 05:10 WBC 20.1 H RBC 2.76 L Hgb 7.9 L Hct 26.2 L MCHC 30.2 L Neut % (Auto) 81.5 H Lymph % (Auto) 7.3 L Lymph # (Auto) 1.46 L [place] # (Auto) 1.73 H Absolute Neutrophils 16.40 H Potassium 3.2 L 3.0 L Glucose 131 H 116 H AST 222 H ALT 338 H Alkaline Phosphatase 172 H Total Protein 5.5 L Albumin 2.3 L Albumin/Globulin Ratio 0.7 L Meds: Medications Acetaminophen (Acetaminophen 325 Mg Tablet) 650 mg PO Q6HP PRN; Protocol PRN Reason: Per Pain Protocol/Fever > 101 Last Admin: 02/12/22 03:01 Dose: 650 mg Documented by: Hydrocodone Bitart/Acetaminophen (Hydrocodone/Apap 5/325mg Tablet) 1 tab PO Q6HP PRN; Protocol PRN Reason: Per Pain Protocol Albuterol Sulfate (Albuterol Sulfate 2.5 Mg/3 Ml Nebulizer) 2.5 mg NEB Q6HRT [facility] Last Admin: 02/12/22 13:10 Dose: 2.5 mg Documented by: Albuterol/Ipratropium (Ipratropium/Albuterol 3 Ml Ampul.Neb) 3 ml NEB Q4HP PRN PRN Reason: Shortness Of Breath Last Admin: 02/12/22 13:09 Dose: 3 ml Documented by: Amantadine HCl (Amantadine Hcl 100 Mg Capsule) 100 mg PO BID [facility] Last Admin: 02/12/22 08:17 Dose: 100 mg Documented by: Benztropine Mesylate (Benztropine 1 Mg Tablet) 2 mg PO BID [facility] Last Admin: 02/12/22 08:17 Dose: 2 mg Documented by: Bisacodyl (Bisacodyl 10 Mg Supp.Rect) 10 mg TX Q2-3DAYS PRN PRN Reason: Constipation Calcium Carbonate/Glycine (Calcium Carbonate 500 Mg Tab.Chew) 1,000 mg CHEWED Q4HP PRN PRN Reason: Indigestion Calcium Carbonate/Glycine (Calcium (Oyster Shell) 500 Mg Tablet) 500 mg PO BID [facility] Last Admin: 02/12/22 08:17 Dose: 500 mg Documented by: Carvedilol ([facility] 6.25 Mg Tablet) [facility] Last Admin: 02/12/22 08:17 Dose: 6.25 mg Documented by: Docusate Sodium (Docusate Sodium 100 Mg Capsule) 100 mg PO BID [facility] Last Admin: 02/12/22 08:09 Dose: Not Given Documented by: Furosemide (Furosemide 20 Mg Tablet) 40 mg PO DAILY [facility] Last Admin: 02/12/22 08:16 Dose: 40 mg Documented by: Potassium Chloride 40 meq/ (Dextrose) 520 mls @ 130 mls/hr IV UD PRN PRN Reason: Potassium < 3 Magnesium Sulfate (Magnesium Sulfate) 2 gm in 50 mls @ 50 mls/hr IV UD PRN PRN Reason: Magnesium </= 1.6 Piperacillin Sod/Tazobactam (Sod 3.375 gm/ Dextrose) 50 mls @ 100 mls/hr IV Q6H [facility]; Protocol Last Infusion: 02/12/22 11:41 Dose: Infused Documented by: Potassium Chloride 20 meq/ (Dextrose) 260 mls @ 130 mls/hr IV UD PRN PRN Reason: hypokalemia Dextrose/Lactated Ringer's (Dextrose 5%-Lactated Ringers) 1,000 mls @ 75 mls/hr IV .[id number] [facility] Last Admin: 02/12/22 12:50 Dose: 75 mls/hr Documented by: Lorazepam (Lorazepam 1 Mg Tablet) 1 mg PO BIDP PRN PRN Reason: Anxiety Last Admin: 02/06/22 20:17 Dose: 1 mg Documented by: Magnesium Citrate (Magnesium Citrate 300 Ml Oral.Becky) 300 ml PO DAILYP PRN PRN Reason: Constipation Magnesium Hydroxide (Magnesium Hydroxide 30 Ml Oral.Susp) 30 ml PO BIDP PRN PRN Reason: Constipation Methocarbamol (Methocarbamol 750 Mg Tablet) 750 mg PO Q6HP PRN PRN Reason: Muscle Spasm Last Admin: 02/04/22 17:30 Dose: 750 mg Documented by: Olanzapine (Olanzapine 5 Mg Tablet) 7.5 mg PO HS [facility] Last Admin: 02/11/22 20:34 Dose: 7.5 mg Documented by: Ondansetron HCl (Ondansetron 4 Mg/2 Ml Vial) 4 mg IV Q4HP PRN PRN Reason: Nausea And Vomiting Last Admin: 02/07/22 08:11 Dose: 4 mg Documented by: Ondansetron HCl (Ondansetron 4 Mg Odt Tablet) 4 mg SL Q4HP PRN; Protocol PRN Reason: Nausea And Vomiting Pantoprazole Sodium (Pantoprazole 40 Mg Packet) 40 mg PO BIDAC [facility] Last Admin: 02/12/22 07:26 Dose: 40 mg Documented by: Budesonide- Formoterol [ Symbicort] 10.2 Gm Hfa Inhaler 2 dose INH BID [facility] Last Admin: 02/12/22 08:09 Dose: Not Given Documented by: Diclofenac Sodium 1 (% Gel) 2 dose TOPICAL TID [facility] Last Admin: 02/12/22 08:10 Dose: Not Given Documented by: Polyethylene Glycol (Polyethylene Glycol 3350 17 Gm Packet) 17 gm PO BID [facility] Last Admin: 02/12/22 08:09 Dose: Not Given Documented by: Polyethylene Glycol (Polyethylene Glycol 3350 17 Gm Packet) 17 gm PO DAILYP PRN PRN Reason: Constipation Potassium Chloride (Potassium Chloride 10 Meq Tablet) 10 meq PO BIDCC [facility] Last Admin: 02/12/22 08:16 Dose: 10 meq Documented by: Potassium Chloride (Potassium Chloride 20 Meq Tablet) 40 meq PO UD PRN PRN Reason: Potssium is 3-3.5 Last Admin: 02/12/22 12:02 Dose: 40 meq Documented by: Potassium Chloride (Potassium Chloride 20 Meq Tablet) 40 meq PO UD PRN PRN Reason: Potassium < 3 Prazosin HCl (Prazosin 1 Mg Capsule) 2 mg PO BID [facility] Last Admin: 02/12/22 08:17 Dose: 2 mg Documented by: Senna (Sennosides 1 Tablet) 1 tab PO BID [facility] Last Admin: 02/12/22 08:10 Dose: Not Given Documented by: Simvastatin (Simvastatin 20 Mg Tablet) 20 mg PO HS [facility] Last Admin: 02/11/22 20:34 Dose: 20 mg Documented by: Sodium Biphosphate/Sodium Phosphate (Fleets Adult Enema) 1 dose [place] Q3-4DAYS PRN PRN Reason: Constipation Sodium Chloride (0.9 % Sodium Chloride 10 Ml Syringe) 10 ml IV Q8 [facility] Last Admin: 02/12/22 13:26 Dose: Not Given Documented by: Throat Lozenges (Benzocaine/Menthol 1 Lozenge) 1 lozenge PO PRN PRN PRN Reason: Sore Throat Tiotropium [place] (Tiotropium [place] 18 Mcg Inhalant) 18 mcg INH DAILY [facility] Last Admin: 02/12/22 08:10 Dose: Not Given Documented by: Trazodone HCl (Trazodone Hcl 50 Mg Tablet) 50 mg PO HSP PRN PRN Reason: Insomnia Last Admin: 02/12/22 01:44 Dose: 50 mg Documented by: A/P Narrative A/P Narrative: 1. Closed left hip fracture: s/p ORIF by orthopedic surgeon Dr. Payan 02/03/22; post operative care as per surgical team including pain control No weight bearing on LLE. Consulted PT now that he is awake and alert. SCDs; hold Fondaparinux for GI bleeding 2. h/o dementia: Amantadine Need to clarify if [facility] can take care of his physical rehab needs or if we need to make arrangement for physical rehab placement 3. h/o CAD: Continue Coreg Continue Simvastatin 4. Essential HTN: Currently borderline hypotensive Continue Coreg Continue Lasix Hold Losartan for soft blood pressure 5. Mixed dyslipidemia: Continue Simvastatin 6. h/o COPD: Supplemental oxygen therapy titrate to achieve spo2>=88%, currently on room air Symbicort Spiriva DuoNEB NEB PRN wheezing. Scheduled albuterol every 6 hours for now. He has bilateral wheezing. Chest X ray 7. ADRIANE on CPAP: Continue CPAP at night while sleeping 8. Fever: Blood culture, no growth to date Urine culture, no growth to date Chest X ray showing moderate cardiomyopathy and stable COPD Zosyn as empiric antibiotics Add Vancomycin to broaden the antibiotic spectrum coverage. Will stop antibiotics in a few days if he remains afebrile. Improving overall. Tylenol PRN fever 9. Upper GI bleeding: EGD on 02/07 found gastritis and esophagitis Daily cbc w/ auto diff to trend H/H Ordered dysphagia level 4 diet . Protonix IV BID-> switch to 40 mg twice daily orally. May benefit from a repeat EGD around April 09 to follow-up on resolution of gastritis/esophagitis hold Fondaparinux for now, resume at time of hospital discharge 10. Acute metabolic encephalopathy-resolved His extremities are warm and well perfused, which is reassuring for cardiac output. Also vital signs are stable. This ensures optimal cardiopulmonary system performance. Appears much better today, compared with on February 10. Ordered CT of the head without contrast to rule out new stroke/bleed. Normal. Liver US normal.Normal ammonia. Stopped Flexeril. Advise caution with narcotic medications as well. Continue empiric antibiotic coverage. Chest x-ray ruled out pneumonia. Blood cultures have been negative. GI ppx: Protonix IV DVT ppx: SCDs; hold Fondaparinux for now, resume at time of hospital discharge Code status: DNI DNR Prognosis: extremely guarded Disposition: inpatient med surg; pending SNF placement Time Spent With Patient Time: Total time spent is greater than 50% in coordination of care (as documented) at patient's floor/unit and/or counseling patient: Total time spent with greater than 50% in coordination of care (as documented) at patient's floor/unit and/or counseling patient:: 25 - 35 minutes QUALITY VTE Deep Vein Thrombosis/Pulmonary Embolism Present on Admission: No
[2022-02-12] MEDS: OLANZapine 5 MG TABLET PO SCH (21:48)
[2022-02-12] MEDS: SIMVASTATIN 20 MG TABLET PO SCH (21:49)
[2022-02-13] MEDS: ALBUTEROL SULFATE 2.5 MG/3 ML NEBULIZER NEB SCH ×4 (00:15→19:13)
[2022-02-13] MEDS: PIPERACILLIN SODIUM/TAZOBACTAM 3.375 GM in DEXTROSE 5% IN WATER 50 ML IV SCH ×3 (00:18→12:10)
[2022-02-13] MEDS: DEXTROSE 5%-LR 1,000 ML IV SCH ×2 (03:53→07:42)
[2022-02-13] MEDS: 0.9 % SODIUM CHLORIDE 10 ML SYRINGE IV SCH ×3 (05:59→21:36)
[2022-02-13 06:46] LABS: Basophils # (Auto) 0.09 K/mcL (0.00-0.30); Basophils % (Auto) 0.6 % (0.0-2.0); Eosinophils # (Auto) 0.25 K/mcL (0.00-0.70); Eosinophils % (Auto) 1.8 % (0.0-7.0); Hematocrit 25.2 % (40.1-51.0); Hemoglobin 7.6 g/dL (13.7-17.5); Lymphocytes # (Auto) 2.07 K/mcL (1.50-4.80); Lymphocytes % (Auto) 14.7 % (15.5-49.0); Mean Corpuscular HGB Conc 30.2 g/dL (31.0-36.0); Mean Platelet Volume 10.3 fL (7.4-10.4); Monocytes # (Auto) 1.51 K/mcL (0.10-0.90); Monocytes % (Auto) 10.8 % (1.0-12.0); Neutrophils % (Auto) 72.1 % (38.0-78.0); Platelet Count 463 K/mcL (140-440); RBC 2.68 M/mcL (4.63-6.08); Red Cell Distribution Width 14.6 % (11.5-14.5)
[2022-02-13 06:58] LABS: Blood Urea Nitrogen 6 mg/dL (8-23); Carbon Dioxide 21 mmol/L (22-30); Chloride 105 mmol/L (96-108); Glomerular Filtration Rate 85; Glucose 110 mg/dL (70-105)
[2022-02-13] MEDS: PANTOPRAZOLE 40 MG PACKET PO SCH ×2 (07:42→17:10)
[2022-02-13] MEDS: CARVEDILOL 6.25 MG TABLET PO SCH ×2 (08:38→17:10)
[2022-02-13] MEDS: CALCIUM (OYSTER SHELL) 500 MG TABLET PO SCH ×2 (08:38→21:34)
[2022-02-13] MEDS: FUROSEMIDE 20 MG TABLET PO SCH (08:38)
[2022-02-13] MEDS: POTASSIUM CHLORIDE 10 MEQ TABLET PO SCH ×2 (08:39→17:10)
[2022-02-13] MEDS: BENZTROPINE 1 MG TABLET PO SCH ×2 (08:39→21:34)
[2022-02-13] MEDS: PRAZOSIN 1 MG CAPSULE PO SCH ×2 (08:39→21:34)
[2022-02-13] MEDS: DOCUSATE SODIUM 100 MG CAPSULE PO SCH ×2 (08:39→21:36)
[2022-02-13] MEDS: TIOTROPIUM BROMIDE 18 MCG INHALANT INH SCH (08:40)
[2022-02-13] MEDS: DICLOFENAC SODIUM 1% TOPICAL SCH ×3 (08:40→21:36)
[2022-02-13] MEDS: POLYETHYLENE GLYCOL 3350 17 GM PACKET PO SCH ×2 (08:40→21:36)
[2022-02-13] MEDS: BUDESONIDE FORMOTEROL INH SCH ×2 (08:40→21:36)
[2022-02-13] MEDS: AMANTADINE HCL 100 MG CAPSULE PO SCH ×2 (08:44→21:33)
[2022-02-13] MEDS: SENNOSIDES 1 TABLET PO SCH ×2 (08:44→21:36)
--- NOTE | 2022-02-13 14:00 | Internal Med Progress Note ---
SUBJECTIVE Subjective Patient information: Note initiated : 02/13/22 at 1:59 pm Service Date, if different from initiated Date: [] Patient: Isrrael Carrasco 71 y/o M admitted on 02/01/22 for left hip pain/weakness. Chief Complaint: [] Principal diagnosis: s/p left hip periposthetic fracture Interval history: Patient recently left hip replacement on January 17 and on had a fall resulting in a nondisplaced fracture below the stem. He has had difficulty ambulating increasing pain since that time and had a repeat fall yesterday. He is now unable to bear weight as much more pain. Past medical history cleared COPD on 2 L nasal cannula. Work-up in the ED revealed an oblique displaced fracture of left hip. Dr. Payan was contacted. Patient is a smoker about half pack per day but wants to quit now. Sense of medication for parkinsonism or drug-induced extrapyramidal symptoms but not sure why. Reviewed imaging and ekg 02/02 No overnight event or new complaints. Surgery will be till tomorrow because her waiting for surgical equipment. Patient is wheezy a little bit but states she is always wheezy. Debilitated will likely need SNF. Chronic oxygen use. 02/03 Awaiting surgery today. Does seem to have some chronic tachycardia looking at old trends. 02/04: s/p ORIF last night by Dr. Payan. c/o 10/10 left lateral hip pain. No bowel movement yet since surgery. Denies any shortness of breath. Currently on room air. Pending SNF placement once cleared by surgery. 02/05: Fever with Tmax 39.3 last night. Blood and urine cultures no growth to date. Lethargic. Denies left hip pain. Denies any shortness of breath. Currently on room air. Pending SNF placement once clinically cleared. 02/06: Fever with Tmax 38.0 this morning. Blood and urine cultures no growth to date. Way more awake and alert this morning compared to yesterday. Denies left hip pain. Good appetite. Denies any shortness of breath. Currently on room air. Denies any fever or chills. Pending SNF placement once clinically cleared. 02/07: Coffee ground emesis this morning. Stable H/H. Afebrile overnight. Denies any subjective fever or chills. Denies any epigastric abdominal pain. Denies lightheadedness. Denies shortness of breath. Denies hip pain. NPO. Consult general surgeon Dr. Castorena for potential EGD. Hold anticoagulants. Continue Zos yn as empiric antibiotics for recent leukocytosis and fever. All cultures no growth to date. 02/08: Status post EGD by Dr. Castorena general surgeons on February 07, 2022, which found gastroparesis, gastritis, and esophagitis. H&H stable this morning relatively yesterday. Leukocytosis with WBC 18.6. No more episode of hematemesis or bloody or black stool. Resumed dysphagia diet. Denies any subjective fever or chills. Denies any epigastric abdominal pain. Denies lightheadedness. Denies shortness of breath. Denies hip pain. Continue Zosyn as empiric antibiotics for recent leukocytosis and fever. All cultures no growth to date. 02/09: Lethargic. Leukocytosis worsening WBC 18.6-->20.5. Blood cultures no growth to date. Will broaden antibiotics therapy by adding Vancomycin in addition to Zosyn. Prognosis extremely guarded 02/10: Continues to be lethargic. Hard to arouse with voice or touch. WBC remained at 20k.Blood cultures no growth to date Cont Vanc and Zosyn. Prognosis guarded. Ordered CT Head, Ammonia and Liver US today to further workup cause of his lethargy. Pertinent ROS: Unable to obtaindue to lethargy 02/11-appears much better today awake, alert. Is able to engage in normal conv ersation. Reports he is feeling much better. Per RN report, he ate most of his dinner last night. Still awaiting CT head, liver ultrasound. Has some wheezing bilaterally. Ordered albuterol nebulizer. 02/12- Daughter at bedside. Pt denies any new sx. Awaiting placement. He is alert and awake. Appears to be at his baseline. Needs SNF and daughter agrees on SNF placement. 02/13-asymptomatic. Comfortable. Awaiting placement. Constitutional Vitals: Vital Signs Temp Pulse Resp BP Pulse Ox 98.3 F 92 H 17 132/70 94 02/13/22 12:00 02/13/22 12:52 02/13/22 12:52 02/13/22 12:00 02/13/22 12:52 Period Temp Pulse Resp BP Sys/[place] Pulse Ox Last 24 Hr 97.5 F-98.9 F 87-105 17-24 127-135/70-76 90-96 Intake and Output 02/12/22 02/13/22 02/13/22 21:59 05:59 13:59 Intake Total 170 1530 100 Output Total 407 290 3832 Balance 18 680 -950 Weight 112.122 kg Intake & Output: Intake & Output 02/12/22 02/13/22 02/13/22 21:59 05:59 13:59 Intake Total 170 1530 100 Output Total 556 824 2134 Balance 18 680 -950 Weight 112.122 kg Intake: IV 50 1050 100 Dextrose 5%-Lactated Ringers 1, 1000 000 ml @ 75 mls/hr IV .[id number] SUE Rx#:[id number] Zosyn 3.375 gm In Dextrose 5% 50 50 100 in Water 50 ml @ 100 mls/hr IV Q6H SUE Rx#:[id number] Oral 120 480 Output: Urine Catheter Amount 850 1050 Void Amount 151 # of times incontinent of urine 1 Other: Urine Appearance Clear Clear Uretheral (Chase) Clear Clear Urine Color Bright Yellow Dark Yellow Uretheral (Chase) Pale Pale Urine Odor Normal Normal Uretheral (Chase) Normal Normal Stool Size Large Large Stool Color Brown Brown Stool Consistency Soft Loose # Voids 1 # Bowel Movements 1 4 # of times incontinent of 1 4 Bowels General appearance: average body habitus, cooperative and no acute distress Head Head exam: Present atraumatic and normocephalic Eye Eye exam: Present normal appearance Respiratory Respiratory exam: Present normal respiratory exam and CTAB; Absent accessory muscle use, decreased breath sounds or respiratory distress Cardiovascular Cardiovascular exam: Present normal rate and rhythm and RRR; Absent bradycardia, gallop, systolic murmur or tachycardia GI/Abdominal GI/Abdominal exam: Present soft Neurological Exam Neurological exam: Present alert and oriented X3; Absent altered or motor sensory deficit OBJ DATA Labs CBC & Chem 7: 02/13/22 05:09 02/13/22 05:09 Labs: Abnormal Lab Results 02/13/22 02/13/22 02/12/22 05:09 05:09 08:06 WBC 14.0 H RBC 2.68 L Hgb 7.6 L Hct 25.2 L MCHC 30.2 L RDW 14.6 H Plt Count 463 H Lymph % (Auto) 14.7 L [place] # (Auto) 1.51 H Absolute Neutrophils 10.12 H Potassium 3.2 L Carbon Dioxide 21 L BUN 6 L Glucose 110 H 131 H Meds: Medications Acetaminophen (Acetaminophen 325 Mg Tablet) 650 mg PO Q6HP PRN; Protocol PRN Reason: Per Pain Protocol/Fever > 101 Last Admin: 02/12/22 03:01 Dose: 650 mg Documented by: Hydrocodone Bitart/Acetaminophen (Hydrocodone/Apap 5/325mg Tablet) 1 tab PO Q6HP PRN; Protocol PRN Reason: Per Pain Protocol Albuterol Sulfate (Albuterol Sulfate 2.5 Mg/3 Ml Nebulizer) 2.5 mg NEB Q6HRT [facility] Last Admin: 02/13/22 12:52 Dose: 2.5 mg Documented by: Albuterol/Ipratropium (Ipratropium/Albuterol 3 Ml Ampul.Neb) 3 ml NEB Q4HP PRN PRN Reason: Shortness Of Breath Last Admin: 02/12/22 13:09 Dose: 3 ml Documented by: Amantadine HCl (Amantadine Hcl 100 Mg Capsule) 100 mg PO BID [facility] Last Admin: 02/13/22 08:44 Dose: 100 mg Documented by: Benztropine Mesylate (Benztropine 1 Mg Tablet) 2 mg PO BID [facility] Last Admin: 02/13/22 08:39 Dose: 2 mg Documented by: Bisacodyl (Bisacodyl 10 Mg Supp.Rect) 10 mg OR Q2-3DAYS PRN PRN Reason: Constipation Calcium Carbonate/Glycine (Calcium Carbonate 500 Mg Tab.Chew) 1,000 mg CHEWED Q4HP PRN PRN Reason: Indigestion Calcium Carbonate/Glycine (Calcium (Oyster Shell) 500 Mg Tablet) 500 mg PO BID [facility] Last Admin: 02/13/22 08:38 Dose: 500 mg Documented by: Carvedilol (Carvedilol 6.25 Mg Tablet) [facility] Last Admin: 02/13/22 08:38 Dose: 6.25 mg Documented by: Docusate Sodium (Docusate Sodium 100 Mg Capsule) 100 mg PO BID [facility] Last Admin: 02/13/22 08:39 Dose: Not Given Documented by: Furosemide (Furosemide 20 Mg Tablet) 40 mg PO DAILY [facility] Last Admin: 02/13/22 08:38 Dose: 40 mg Documented by: Potassium Chloride 40 meq/ (Dextrose) 520 mls @ 130 mls/hr IV UD PRN PRN Reason: Potassium < 3 Magnesium Sulfate (Magnesium Sulfate) 2 gm in 50 mls @ 50 mls/hr IV UD PRN PRN Reason: Magnesium </= 1.6 Piperacillin Sod/Tazobactam (Sod 3.375 gm/ Dextrose) 50 mls @ 100 mls/hr IV Q6H [facility]; Protocol Last Infusion: 02/13/22 12:59 Dose: Infused Documented by: Potassium Chloride 20 meq/ (Dextrose) 260 mls @ 130 mls/hr IV UD PRN PRN Reason: hypokalemia Dextrose/Lactated Ringer's (Dextrose 5%-Lactated Ringers) 1,000 mls @ 75 mls/hr IV .[id number] [facility] Last Admin: 02/13/22 07:42 Dose: Not Given Documented by: Lorazepam (Lorazepam 1 Mg Tablet) 1 mg PO BIDP PRN PRN Reason: Anxiety Last Admin: 02/06/22 20:17 Dose: 1 mg Documented by: Magnesium Citrate (Magnesium Citrate 300 Ml Oral.Becky) 300 ml PO DAILYP PRN PRN Reason: Constipation Magnesium Hydroxide (Magnesium Hydroxide 30 Ml Oral.Susp) 30 ml PO BIDP PRN PRN Reason: Constipation Methocarbamol (Methocarbamol 750 Mg Tablet) 750 mg PO Q6HP PRN PRN Reason: Muscle Spasm Last Admin: 02/04/22 17:30 Dose: 750 mg Documented by: Olanzapine (Olanzapine 5 Mg Tablet) 7.5 mg PO HS [facility] Last Admin: 02/12/22 21:48 Dose: 7.5 mg Documented by: Ondansetron HCl (Ondansetron 4 Mg/2 Ml Vial) 4 mg IV Q4HP PRN PRN Reason: Nausea And Vomiting Last Admin: 02/07/22 08:11 Dose: 4 mg Documented by: Ondansetron HCl (Ondansetron 4 Mg Odt Tablet) 4 mg SL Q4HP PRN; Protocol PRN Reason: Nausea And Vomiting Pantoprazole Sodium (Pantoprazole 40 Mg Packet) 40 mg PO BIDAC [facility] Last Admin: 02/13/22 07:42 Dose: 40 mg Documented by: Budesonide- Formoterol [ Symbicort] 10.2 Gm Hfa Inhaler 2 dose INH BID [facility] Last Admin: 02/13/22 08:40 Dose: Not Given Documented by: Diclofenac Sodium 1 (% Gel) 2 dose TOPICAL TID [facility] Last Admin: 02/13/22 13:04 Dose: Not Given Documented by: Polyethylene Glycol (Polyethylene Glycol 3350 17 Gm Packet) 17 gm PO BID [facility] Last Admin: 02/13/22 08:40 Dose: Not Given Documented by: Polyethylene Glycol (Polyethylene Glycol 3350 17 Gm Packet) 17 gm PO DAILYP PRN PRN Reason: Constipation Potassium Chloride (Potassium Chloride 10 Meq Tablet) 10 meq PO BIDCC [facility] Last Admin: 02/13/22 08:39 Dose: 10 meq Documented by: Potassium Chloride (Potassium Chloride 20 Meq Tablet) 40 meq PO UD PRN PRN Reason: Potssium is 3-3.5 Last Admin: 02/12/22 12:02 Dose: 40 meq Documented by: Potassium Chloride (Potassium Chloride 20 Meq Tablet) 40 meq PO UD PRN PRN Reason: Potassium < 3 Prazosin HCl (Prazosin 1 Mg Capsule) 2 mg PO BID [facility] Last Admin: 02/13/22 08:39 Dose: 2 mg Documented by: Senna (Sennosides 1 Tablet) 1 tab PO BID [facility] Last Admin: 02/13/22 08:44 Dose: Not Given Documented by: Simvastatin (Simvastatin 20 Mg Tablet) 20 mg PO HS [facility] Last Admin: 02/12/22 21:49 Dose: 20 mg Documented by: Sodium Biphosphate/Sodium Phosphate (Fleets Adult Enema) 1 dose OR Q3-4DAYS PRN PRN Reason: Constipation Sodium Chloride (0.9 % Sodium Chloride 10 Ml Syringe) 10 ml IV Q8 [facility] Last Admin: 02/13/22 13:03 Dose: Not Given Documented by: Throat Lozenges (Benzocaine/Menthol 1 Lozenge) 1 lozenge PO PRN PRN PRN Reason: Sore Throat Tiotropium [place] (Tiotropium [place] 18 Mcg Inhalant) 18 mcg INH DAILY [facility] Last Admin: 02/13/22 08:40 Dose: Not Given Documented by: Trazodone HCl (Trazodone Hcl 50 Mg Tablet) 50 mg PO HSP PRN PRN Reason: Insomnia Last Admin: 02/12/22 21:49 Dose: 50 mg Documented by: A/P Narrative A/P Narrative: 1. Closed left hip fracture: s/p ORIF by orthopedic surgeon Dr. Payan 02/03/22; post operative care as per s urgical team including pain control No weight bearing on LLE. Consulted PT now that he is awake and alert. SCDs; hold Fondaparinux for GI bleeding 2. h/o dementia: Amantadine Need to clarify if [place] can take care of his physical rehab needs or if we need to make arrangement for physical rehab placement 3. h/o CAD: Continue Coreg Continue Simvastatin 4. Essential HTN: Currently borderline hypotensive Continue Coreg Continue Lasix Hold Losartan for soft blood pressure 5. Mixed dyslipidemia: Continue Simvastatin 6. h/o COPD: Supplemental oxygen therapy titrate to achieve spo2>=88%, currently on room air Symbicort Spiriva DuoNEB NEB PRN wheezing. Scheduled albuterol every 6 hours for now. He has bilateral wheezing. Chest X ray 7. ADRIANE on CPAP: Continue CPAP at night while sleeping 8. Fever: Blood culture, no growth to date Urine culture, no growth to date Chest X ray showing moderate cardiomyopathy and stable COPD Zosyn as empiric antibiotics-treated from February 07 February 13. Stop vancomycin. Tylenol PRN fever 9. Upper GI bleeding: EGD on 02/07 found gastritis and esophagitis Daily cbc w/ auto diff to trend H/H Ordered dysphagia level 4 diet . Protonix IV BID-> switch to 40 mg twice daily orally. May benefit from a repeat EGD around April 09 to follow-up on resolution of gastritis/esophagitis hold Fondaparinux for now, resume at time of hospital discharge 10. Acute metabolic encephalopathy-resolved Ordered CT of the head without contrast to rule out new stroke/bleed. Normal. Liver US normal.Normal ammonia. Stopped Flexeril. Advise caution with narcotic medications as well. Chest x-ray ruled out pneumonia. Blood cultures have been negative. GI ppx: Protonix DVT ppx: SCDs; hold Fondaparinux for now, resume at time of hospital discharge Disposition: inpatient med surg; pending SNF placement Time Spent With Patient Time: Total time spent is greater than 50% in coordination of care (as documented) at patient's floor/unit and/or counseling patient: Total time spent with greater than 50% in coordination of care (as documented) at patient's floor/unit and/or counseling patient:: 25 - 35 minutes QUALITY VTE Deep Vein Thrombosis/Pulmonary Embolism Present on Admission: No
[2022-02-13] MEDS: SIMVASTATIN 20 MG TABLET PO SCH (21:33)
[2022-02-13] MEDS: OLANZapine 5 MG TABLET PO SCH (21:34)
[2022-02-14] MEDS: ALBUTEROL SULFATE 2.5 MG/3 ML NEBULIZER NEB SCH ×2 (01:06→07:13)
[2022-02-14] MEDS: 0.9 % SODIUM CHLORIDE 10 ML SYRINGE IV SCH (04:49)
[2022-02-14 06:52] LABS: Basophils # (Auto) 0.08 K/mcL (0.00-0.30); Basophils % (Auto) 0.6 % (0.0-2.0); Eosinophils # (Auto) 0.28 K/mcL (0.00-0.70); Hematocrit 26.4 % (40.1-51.0); Hemoglobin 7.9 g/dL (13.7-17.5); Lymphocytes # (Auto) 2.59 K/mcL (1.50-4.80); Lymphocytes % (Auto) 18.9 % (15.5-49.0); Mean Cell Volume 92.6 fL (80.0-100.0); Mean Corpuscular HGB Conc 29.9 g/dL (31.0-36.0); Mean Platelet Volume 10.2 fL (7.4-10.4); Monocytes # (Auto) 1.49 K/mcL (0.10-0.90); Monocytes % (Auto) 10.9 % (1.0-12.0); Neutrophils % (Auto) 67.6 % (38.0-78.0); Platelet Count 465 K/mcL (140-440); RBC 2.85 M/mcL (4.63-6.08); Red Cell Distribution Width 14.7 % (11.5-14.5); WBC 13.7 K/mcL (4.5-11.0)
[2022-02-14] MEDS: PANTOPRAZOLE 40 MG PACKET PO SCH (07:26)
[2022-02-14 07:32] LABS: Blood Urea Nitrogen 7 mg/dL (8-23); Calcium 9.2 mg/dL (8.6-10.4); Carbon Dioxide 23 mmol/L (22-30); Chloride 103 mmol/L (96-108); Glomerular Filtration Rate 75; Glucose 90 mg/dL (70-105)
[2022-02-14] MEDS: FUROSEMIDE 20 MG TABLET PO SCH (09:46)
[2022-02-14] MEDS: AMANTADINE HCL 100 MG CAPSULE PO SCH (09:46)
[2022-02-14] MEDS: BENZTROPINE 1 MG TABLET PO SCH (09:46)
[2022-02-14] MEDS: CALCIUM (OYSTER SHELL) 500 MG TABLET PO SCH (09:46)
[2022-02-14] MEDS: PRAZOSIN 1 MG CAPSULE PO SCH (09:46)
[2022-02-14] MEDS: CARVEDILOL 6.25 MG TABLET PO SCH (09:46)
[2022-02-14] MEDS: POTASSIUM CHLORIDE 10 MEQ TABLET PO SCH (09:46)
[2022-02-14] MEDS: DOCUSATE SODIUM 100 MG CAPSULE PO SCH (10:33)
[2022-02-14] MEDS: SENNOSIDES 1 TABLET PO SCH (10:34)
[2022-02-14] MEDS: BUDESONIDE FORMOTEROL INH SCH (10:34)
[2022-02-14] MEDS: POLYETHYLENE GLYCOL 3350 17 GM PACKET PO SCH (10:34)
[2022-02-14] MEDS: TIOTROPIUM BROMIDE 18 MCG INHALANT INH SCH (10:34)
[2022-02-14] MEDS: DICLOFENAC SODIUM 1% TOPICAL SCH (10:34)
--- NOTE | 2022-02-14 11:27 | Discharge Summary ---
Discharge Provider Provider Patient information: Note initiated : 02/14/22 at 11:19 am Service Date, if different from initiated Date: [] Patient: Isrrael Carrasco 71 y/o M admitted on 02/01/22 for left hip pain/weakness. Chief Complaint: [] Date of admission: 02/01/22 21:24 Discharge date: 02/14/22 Primary care physician: Andre Myrick PA-C Consults: 02/01/22 Consult to Physician [CONS] Stat Comment: Consulting Provider: Andre Payan Reason For Exam: Physician to Consult Consult to Physician [CONS] Stat Comment: Consulting Provider: Justin Craft Reason For Exam: Physician to Consult Consult to Physician [CONS] Stat Comment: Consulting Provider: Justin Craft Reason For Exam: Physician to Consult 02/06/22 07:51 Consult to Physician [CONS] Routine Comment: snf referral Consulting Provider: [facility] Reason For Exam: Physician to Consult 02/07/22 12:35 Consult to Physician [CONS] Routine Comment: Consulting Provider: Albert Castorena Reason For Exam: Physician to Consult Attending physician on discharge: Alexander Dunbar Discharging clinician: Alexander Dunbar Discharge Meds Discharge Medications Home Medications albuterol sulfate 90 mcg/actuation aerosol inhaler (Ventolin HFA) 2 puff INH Q4HP PRN 12/06/17 [History Confirmed 02/01/22 Last Taken 12/09/17 19:30] benztropine 1 mg tablet 2 mg PO BID 12/06/17 [History Confirmed 02/01/22 Last Taken 01/17/22 06:00] budesonide-formoterol HFA 160 mcg-4.5 mcg/actuation aerosol inhaler (Symbicort) 2 puff INH BID 12/06/17 [History Confirmed 02/01/22 Last Taken 12/09/17 07:30] calcium carbonate 200 mg calcium (500 mg) chewable tablet 1,000 mg CHEWED Q4HP PRN 12/06/17 [History Confirmed 02/01/22 Last Taken Unknown] calcium carbonate 600 mg calcium (1,500 mg) tablet 600 mg PO BID 12/06/17 [History Confirmed 02/01/22 Last Taken 12/08/17] cholecalciferol (vitamin D3) 25 mcg (1,000 unit) tablet (Vitamin D3) 2,000 unit PO DAILY 12/06/17 [History Confirmed 02/01/22 Last Taken 12/09/17 07:30] clotrimazole 1 % topical cream 1 dose TOPICAL BIDP PRN 12/06/17 [History Confirmed 02/01/22 Last Taken Unknown] fluticasone propionate 50 mcg/actuation nasal spray,suspension 1 spray NS DAILY 12/06/17 [History Confirmed 02/01/22 Last Taken 12/09/17 07:30] furosemide 20 mg tablet 40 mg PO DAILY 12/06/17 [History Confirmed 02/01/22 Last Taken 12/09/17 07:30] olanzapine 5 mg tablet 7.5 mg PO HS 12/06/17 [History Confirmed 02/01/22 Last Taken 12/09/17 19:30] paliperidone palmitate 234 mg/1.5 mL intramuscular syringe (Invega Sustenna) 234 mg IM QMONTH 12/06/17 [History Confirmed 02/01/22 Last Taken 11/10/17] potassium chloride 10 mEq tablet,extended release 10 meq PO BIDCC 12/06/17 [History Confirmed 02/01/22 Last Taken 12/09/17 07:30] prazosin 2 mg capsule 2 mg PO BID 12/06/17 [History Confirmed 02/01/22 Last Taken 01/17/22 06:00] simvastatin 20 mg tablet 20 mg PO HS 12/06/17 [History Confirmed 02/01/22 Last Taken 12/09/17 19:30] tiotropium bromide 18 mcg capsule with inhalation device (Spiriva with HandiHaler) 18 mcg INH DAILY 12/06/17 [History Confirmed 02/01/22 Last Taken 12/09/17 07:30] acetaminophen 325 mg tablet 650 mg PO Q6H PRN 01/10/22 [History Confirmed 02/01/22 Last Taken Unknown] amantadine HCl 100 mg capsule 100 mg PO BID 01/10/22 [History Confirmed 02/01/22 Last Taken 01/17/22 06:00] carvedilol 6.25 mg tablet 6.25 mg PO BIDCC 01/10/22 [History Confirmed 02/01/22 Last Taken 01/17/22 06:00] diclofenac sodium 1 % topical gel 2 g TOPICAL TID 01/10/22 [History Confirmed 02/01/22 Last Taken Unknown] ipratropium 0.5 mg-albuterol 3 mg (2.5 mg base)/3 mL nebulization soln 3 ml INHALATION Q4H PRN 01/10/22 [History Confirmed 02/01/22 Last Taken Unknown] magnesium citrate 300 ml PO DAILYP PRN 01/10/22 [History Confirmed 02/01/22 Last Taken Unknown] polyethylene glycol 3350 17 gram oral powder packet (Miralax) 17 g PO BID 01/10/22 [History Confirmed 02/01/22 Last Taken Unknown] sennosides 8.6 mg tablet (Senna Lax) 8.6 mg PO BID 01/10/22 [History Confirmed 02/01/22 Last Taken Unknown] enoxaparin 40 mg/0.4 mL subcutaneous syringe (Lovenox) 40 mg (0.4 mL) SUBCUT Q24H 14 Days #5.6 ml 02/14/22 [Rx Last Taken Unknown] pantoprazole 40 mg granules delayed-release for susp in packet 40 mg PO BID 120 Days ea 02/14/22 [Rx Last Taken Unknown] COURSE Hospital Course Hospital course: Patient recently left hip replacement on January 17 and on had a fall resulting in a nondisplaced fracture below the stem. He has had difficulty ambulating increasing pain since that time and had a repeat fall yesterday. He is now unable to bear weight as much more pain. Past medical history cleared COPD on 2 L nasal cannula. Work-up in the ED revealed an oblique displaced fracture of left hip. Dr. Payan was contacted. Patient is a smoker about half pack per day but wants to quit now. Sense of medication for parkinsonism or drug-induced extrapyramidal symptoms but not sure why. Reviewed imaging and ekg 02/02 No overnight event or new complaints. Surgery will be till tomorrow because her waiting for surgical equipment. Patient is wheezy a little bit but states she is always wheezy. Debilitated will likely need SNF. Chronic oxygen use. 02/03 Awaiting surgery today. Does seem to have some chronic tachycardia looking at old trends. 02/04: s/p ORIF last night by Dr. Payan. c/o 10/10 left lateral hip pain. No bowel movement yet since surgery. Denies any shortness of breath. Currently on room air. Pending SNF placement once cleared by surgery. 02/05: Fever with Tmax 39.3 last night. Blood and urine cultures no growth to date. Lethargic. Denies left hip pain. Denies any shortness of breath. Currently on room air. Pending SNF placement once clinically cleared. 02/06: Fever with Tmax 38.0 this morning. Blood and urine cultures no growth to date. Way more awake and alert this morning compared to yesterday. Denies left hip pain. Good appetite. Denies any shortness of breath. Currently on room air. Denies any fever or chills. Pending SNF placement once clinically cleared. 02/07: Coffee ground emesis this morning. Stable H/H. Afebrile overnight. Denies any subjective fever or chills. Denies any epigastric abdominal pain. Denies lightheadedness. Denies shortness of breath. Denies hip pain. NPO. Consult general surgeon Dr. Castorena for potential EGD. Hold anticoagulants. Continue Zosyn as empiric antibiotics for recent leukocytosis and fever. All cultures no growth to date. 02/08: Status post EGD by Dr. Castorena general surgeons on February 07, 2022, which found gastroparesis, gastritis, and esophagitis. H&H stable this morning relatively yesterday. Leukocytosis with WBC 18.6. No more episode of hematemesis or bloody or black stool. Resumed dysphagia diet. Denies any subjective fever or chills. Denies any epigastric abdominal pain. Denies lightheadedness. Denies shortness of breath. Denies hip pain. Continue Zosyn as empiric antibiotics for recent leukocytosis and fever. All cultures no growth to date. 02/09: Lethargic. Leukocytosis worsening WBC 18.6-->20.5. Blood cultures no growth to date. Will broaden antibiotics therapy by adding Vancomycin in addition to Zosyn. Prognosis extremely guarded 02/10: Continues to be lethargic. Hard to arouse with voice or touch. WBC remained at 20k.Blood cultures no growth to date Cont Vanc and Zosyn. Prognosis guarded. Ordered CT Head, Ammonia and Liver US today to further workup cause of his lethargy. Pertinent ROS: Unable to obtain due to lethargy 02/11-appears much better today awake, alert. Is able to engage in normal conversation. Reports he is feeling much better. Per RN report, he ate most of his dinner last night. Still awaiting CT head, liver ultrasound. Has some wheezing bilaterally. Ordered albuterol nebulizer. 02/12- Daughter at bedside. Pt denies any new sx. Awaiting placement. He is alert and awake. Appears to be at his baseline. Needs SNF and daughter agrees on SNF placement. 02/13-asymptomatic. Comfortable. Awaiting placement. 02/14- Discharge to SNF today Discharge diagnosis: Closed left hip fracture, gastritis and esophagitis Secondary discharge diagnosis: History of dementia Acute metabolic encephalopathy-resolved History of coronary artery disease Hypertension Hyperlipidemia History of COPD Obstructive sleep apnea Reason for admission: Closed left hip fracture Pertinent studies/significant findings: Mr. Isrrael Mcdonald was admitted for closed left hip fracture. Underwent open reduction with internal fixation by Dr. Guo on February 03, 2022. After surgery he developed upper gastrointestinal bleeding. Endoscopy revealed the source to be from gastritis/esophagitis. Started on pantoprazole twice a day. GI bleed resolved. Soon after this, he was hypersomnolent from around February 07 till February 10. No discernible cause found. CT of the head was normal and liver ultrasound was normal. Responded well to broad-spectrum antibiotics with vancomycin and Zosyn. February 11 onwards he was back to his baseline, alert and oriented. [facility]charge to jail. Discussed plan of care with daughter who is in agreement. Details of his hospitalization as below 1. Closed left hip fracture: s/p ORIF by orthopedic surgeon Dr. Payan 02/03/22; post operative care as per surgical team including pain control No weight bearing on LLE. Consulted PT now that he is awake and alert. SCDs; For DVT prophylaxis- Continue Lovenox 40 mg daily for another 2 weeks, end of treatment March 05, 2022. 2. h/o dementia: Amantadine resumed 3. h/o CAD: Continue Coreg Continue Simvastatin 4. Essential HTN: Currently borderline hypotensive Continue Coreg Continue Lasix Stop losartan due to soft blood pressure. 5. Mixed dyslipidemia: Continue Simvastatin 6. h/o COPD: Symbicort Spiriva DuoNEB NEB PRN wheezing. 7. ADRIANE on CPAP: Continue CPAP at night while sleeping 8. Fever: Blood culture, no growth to date Urine culture, no growth to date Chest X ray showing moderate cardiomyopathy and stable COPD Zosyn as empiric antibiotics-treated from February 07 February 13. Tylenol PRN fever 9. Upper GI bleeding: EGD on 02/07 found gastritis and esophagitis Protonix IV BID-> switch to 40 mg twice daily orally. End of treatment -April 08, 2022. May benefit from a repeat EGD around April 09 to follow-up on resolution of gastritis/esophagitis. Appointment scheduled with our surgery clinic. Stop aspirin. 10. Acute metabolic encephalopathy-resolved CT of the head without contrast to rule out new stroke/bleed. Normal. Liver US normal.Normal ammonia. Stopped Flexeril. Advise caution with narcotic medications as well. Chest x-ray ruled out pneumonia. Blood cultures have been negative. Suspect a component of sleep apnea and polypharmacy could be a contributing cause. Stop Flexeril, hydrocodone 10 mg, Ativan. No indication to resume these as outpatient, unless deemed necessary by future physician. Time Spent with Patient Time attestation: Total time spent providing and/or coordinating discharge services: Time spent: Greater than 30 minutes EXAM Constitutional Vitals: Temp Pulse Resp BP Pulse Ox 97.4 F 90 22 123/74 93 02/14/22 07:38 02/14/22 07:38 02/14/22 07:38 02/14/22 07:38 02/14/22 07:38 General appearance: average body habitus, cooperative and no acute distress Head Head exam: Present atraumatic and normocephalic Eye Eye exam: Present normal appearance ENT ENT exam: Present mucous membranes moist Respiratory Respiratory exam: Present normal respiratory exam and CTAB; Absent accessory muscle use, rales, respiratory distress, stridor or wheezes Cardiovascular Cardiovascular exam: Present normal rate and rhythm and RRR; Absent bradycardia, diastolic murmur, gallop, irregular rhythm or rubs GI/Abdominal GI/Abdominal exam: Present normal bowel sounds and soft; Absent distended, guarding or rebound Expanded Lower Extremity Exam Hip exam: Present normal inspection; Absent swelling Back Exam Back exam: Present normal inspection; Absent CVA tenderness (L), CVA tenderness (R), paraspinal tenderness or vertebral tenderness Neurological Exam Neurological exam: Present alert and oriented X3; Absent abnormal gait or motor sensory deficit Discharge Data Data Completed and Pending Labs on day of discharge: Labs from last 24 hours 02/14/22 02/14/22 05:31 05:30 WBC 13.7 H RBC 2.85 L Hgb 7.9 L Hct 26.4 L MCV 92.6 MCH 27.7 MCHC 29.9 L RDW 14.7 H Plt Count 465 H MPV 10.2 Neut % (Auto) 67.6 Lymph % (Auto) 18.9 [place] % (Auto) 10.9 Eos % (Auto) 2.0 Baso % (Auto) 0.6 Lymph # (Auto) 2.59 [place] # (Auto) 1.49 H Eos # (Auto) 0.28 Baso # (Auto) 0.08 Absolute Neutrophils 9.26 H Sodium 137 Potassium 3.4 Chloride 103 Carbon Dioxide 23 Anion Gap 11.0 BUN 7 L Creatinine 1.0 GFR Calculation 75 Glucose 90 Calcium 9.2 Discharge Plan Patient/Caregiver Discharge Instructions Activity: as per physical therapy and other Diet: Regular Diet Prescriptions: New pantoprazole [address] For Susp In Packet 40 mg PO BID 120 Days 0RF enoxaparin [Lovenox] 40 mg/0.4 mL syringe 40 mg subcut Q24H 14 Days Qty: 5.6 0RF Continued olanzapine 5 MG tablet 7.5 mg PO HS 0RF potassium chloride 10 MEQ tablet extended release 10 meq PO BIDCC 0RF calcium carbonate 600 MG tablet 600 mg PO BID 0RF simvastatin 20 MG tablet 20 mg PO HS 0RF calcium carbonate 500 MG tablet,chewable 1,000 mg CHEWED Q4HP PRN (Reason: Indigestion) 0RF benztropine 1 MG tablet 2 mg PO BID 0RF furosemide 20 MG tablet 40 mg PO DAILY 0RF albuterol sulfate [Ventolin HFA] 1 PUFF HFA aerosol inhaler 2 puff INH Q4HP PRN (Reason: Shortness Of Breath) 0RF fluticasone propionate 1 SPRAY spray,suspension 1 spray NS DAILY 0RF clotrimazole 1 DOSE cream 1 dose topical BIDP PRN (Reason: Rash) 0RF prazosin 2 MG capsule 2 mg PO BID 0RF Spiriva with HandiHaler 18 MCG capsule, w/inhalation device 18 mcg INH DAILY 0RF cholecalciferol (vitamin D3) [Vitamin D3] 1,000 UNIT tablet 2,000 unit PO DAILY 0RF budesonide-formoterol [Symbicort] 10.2 GM HFA aerosol inhaler 2 puff INH BID 0RF Label Comments: SYMBICORT 160 MCG-4.5 MCG/INHALATION Invega Sustenna 234 MG/1.5 ML syringe 234 mg IM QMONTH 0RF sennosides [Senna Lax] 8.6 mg Tablet 8.6 mg PO BID 0RF acetaminophen 325 mg Tablet 650 mg PO Q6H PRN (Reason: Pain) 0RF carvedilol 6.25 mg Tablet 6.25 mg PO BIDCC 0RF Rx Instructions: must administer with a meal/food ipratropium-albuterol 0.5 mg-3 mg(2.5 mg base)/3 mL Solution For Nebulization 3 ml INHALATION Q4H PRN (Reason: Shortness Of Breath) 0RF polyethylene glycol 3350 [Miralax] 17 gram Powder In Packet 17 g PO BID 0RF amantadine HCl 100 mg Capsule 100 mg PO BID 0RF magnesium citrate Solution 300 ml PO DAILYP PRN (Reason: Constipation) 0RF diclofenac sodium 1 % Gel 2 g TOPICAL TID 0RF Rx Instructions: apply to single elbow, wrist or hand; for hand includes palm/fingers/back of hand Discontinued losartan [Cozaar] 50 MG tablet 100 mg PO DAILY 0RF cyclobenzaprine 10 MG tablet 10 mg PO TIDP PRN (Reason: Spasms) 0RF lorazepam 1 mg Tablet 1 mg PO BIDP PRN (Reason: Anxiety) 0RF aspirin [Aspirin Low Dose] 81 mg Tablet,Delayed Release (Dr/Ec) 81 mg PO BID Qty: 60 0RF hydrocodone-acetaminophen 10-325 mg Tablet 1 - 2 tab PO Q4H PRN (Reason: Pain) Qty: 60 0RF Other Ambulatory Orders: Physical Therapy DC - VICK (Routine) Location: None Selected Ordered By: Andre Payan Toilet Riser Discharge Order (ONCE) Location: None Selected Ordered By: Andre Payan Walker (ONCE) Location: None Selected Ordered By: Andre Payan Follow Up Plan Follow up with: Andre Payan MD [Physician] - Andre Myrick PA-C [Primary Care Provider] - Albert Castorena MD [Physician] - (Please schedule around April 09, for follow-up endoscopy) Patient Disposition: Xfer SNF Rehab Potential: Good I certify that the patient requires SNF services: Yes Overall status at discharge: patient is progressing back to baseline Discharge Orders: Discharge Order (Routine); Ordered 02/05/22 Ordered By: Andre Payan Discharge Comment: cc: orif and revision vick s/p periprosthetic fract QUALITY VTE Deep Vein Thrombosis/Pulmonary Embolism Present on Admission: No
== END 2022-02-14 13:20 | DRG 466 ==
LOC: ED 15:30 → MEDSUR 21:24
PROVIDERS: ADMIT Internal Medicine; ATTEND Internal Medicine Medical Oncology